=== PATIENT | male | born 1960 | race Caucasian/White ===

== ENCOUNTER 2019-07-15 07:00 | Day surgery (SDC) | payer BC, SELFPAY ==
[2019-07-14 09:16] VITALS: BMI 34.9
[2019-07-15] VITALS (8 sets, daily range): BP systolic 105–133; BP diastolic 68–90; PULSE 65–72; RESP 12–18; TEMP 36.6–37.1; O2SAT 91–99
--- NOTE | 2019-07-15 07:43 | ANES.PREANES ---
Pre-Anesthetic Assessment Pre-Anesthetic Assessment: Height/Weight: Height 1.91 m Weight 127.006 kg Temp Pulse Resp BP Pulse Ox 97.9 F 65 18 133/90 95 07/15/19 07:12 07/15/19 07:12 07/15/19 07:12 07/15/19 07:12 07/15/19 07:12 Proposed Procedure: Operation Date: 07/15/19 08:20 Proposed Procedures p Enucleation Left Eye(Left) - Jude Albright MD Last intake: Intake Last Liquid Date 07/14/19 Last Liquid Time 18:00 Last Solid Date 07/14/19 Last Solid Time 18:00 Social: Social History: No alcohol and No tobacco Exam: Pre-Anes Outpt Exam: alert, oriented x 3, clear to auscultation bilaterally and regular rate & rhythm Airway: Submandibular: WNL Cervical ROM: WNL MP: 2 Dentition: Other (teeth ok) History/ROS: No significant history except as noted Pulmonary: Pulmonary: None reported CV/HEM: CV/HEM: HTN Comments: H/O PE post surg : : None reported Hepatic: Hepatic: None reported GI: GI: GERD (controlled) Metabolic: Metabolic: Morbid obesity Musc/skel: Musc/skel: Lower Back Pain, OA/DJD and RA Neuropsych: Neuropsych: None reported Anesthetic Plan: ASA status: II Anesthesia: Anesthesia Evaluation, General and MAC Risk of > 500 ml blood loss (7ml/kg in children): No PFSH Anesthesia PFSH: Surgical History (Updated 07/15/19 @ 07:43 by Jarod Ann MD) 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
[2019-07-15] MEDS: sodium chloride 0.9% 1,000 ML 30 ML IV (08:11)
[2019-07-15] MEDS: ceFAZolin 1,000 mg SDV 1000 MG IRRIGATION (09:12)
[2019-07-15] MEDS: tobramycin 40 mg/mL SDV 2mL 80 MG INJECTION (09:25)
[2019-07-15] MEDS: neomycin-poly-dex Op oint 3.5 gm 1 APPLIC EYE-LEFT (09:29)
--- NOTE | 2019-07-15 10:01 | PM.HPUD ---
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
--- NOTE | 2019-07-15 10:02 | PM.OP ---
Operative Report Date of procedure: 07/15/19 Pre-op Diagnosis: Blind painful left eye Post-op diagnosis: same Post-op Findings: Scarred and shrunken left eye Procedure Done: Enucleation of the left eye with placement of a scleral coated shell and suture of the rectus muscles to the shell Implants: Ocular globe with scleral coating and a conformer were both placed on the left side Specimens removed/disposition: phthysical left eye Pathology: other Pathology: Enucleated left globe Surgeon: Jude Albright MD Harness Installer: Jesse Anesthesia: General Estimated blood loss (mL): 2 Complications: None Condition: stable Disposition: PACU Brief History: Patient suffered trauma to the left globe months ago 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 The eye has continued to shrink and become painful as well as causing significant ptosis and discharge from the orbital space. Procedure: The patient was brought to the operating table where blood pressure and cardiac monitoring devices were applied. Timeout was called and the proper patient and procedure were identified. General anesthesia was induced and vital signs were again confirmed to be stable. A Betadine wash was applied over the operative side of the face and sterile drapes were applied. A lid speculum was inserted and local infiltration of 1% lidocaine with epinephrine was given in a periocular as well as retrobulbar fashion. Bernardo scissor and 0.3 forceps was used to perform a peritomy and blunt dissection was continued in all 4 quadrants. Each of the rectus muscles was isolated with imbricating 6-0 Vicryl sutures on both sides of the muscle insertion and then disinserted from the globe. A 4-0 silk suture was placed through the limbus nasally and used to rotate the globe temporally allowing a an enucleation spoon to be placed medially and the enucleation scissors were used to cut the optic nerve as well as the 2 oblique muscles and additional connective tissue adherent to this globe. The orbit was then packed with a gauze pad while a 20 mm sphere was coated with preserved sclera which is been soaked in Ancef. The sclera was pulled tight closing all the surface area with 6-0 Mersilene sutures. The orbital packing was then removed and the sphere was placed in the orbit teasing the tendinous layer anteriorly with the forceps and then each of the rectus muscles was sutured to the scleral implant in their respective positions and crossed swords technique and cut short. The tenons layer was then closed with a running 6-0 Vicryl suture and the conjunctiva was closed with a running 6-0 chromic suture. The conjunctiva was well closed and there was adequate cul-de-sac remaining to place a large conformer coated and Maxitrol ointment between the lids. The lid speculum was removed and the Betadine swabs from the face after the drapes had been removed. The patient was awakened from anesthesia and transferred to the recovery room in stable condition. There were no complications.
[2019-07-15] MEDS: lidocaine 4% PF 5 mL INJ XX (10:19)
--- NOTE | 2019-07-19 09:38 | P.CONIM_ITS ---
Providers/Reason For Consult Consulting Physican/Specialty*: Ear nose and throat Reason for Consult*: intraoperative epistaxis Attending Physician: Jude Albright MD-Opth Primary Care Provider: Katie Fu History of Present Illness History of Present Illness Vicente Galarza is a 58 year old male with a past medical history significant for Qlalt-Wpyia-Ctqra who was having an enucleation after a traumatic left lobe injury. He developed profuse bleeding from both right and left nostrils and I was called to consult. Review of Systems General: Reports: ROS unobtainable due to medical condition Meds/Allergies Home Medications and Allergies Home Medications Medication Instructions Recorded Confirmed Type hydroxychloroquine 200 mg PO BID 07/14/19 07/15/19 History omeprazole 20 mg PO BID 07/14/19 07/15/19 History propranolol 40 mg PO BID 07/14/19 07/15/19 History Allergies Allergy/AdvReac Type Severity Reaction Status Date / Time meperidine [From Demerol] Allergy ADR-Nausea Verified 07/14/19 09:12 PFSH Acute PFSH: Statuses (acute, chronic, etc) shown below reflect problem list status as previously entered and may not be historically accurate Surgical History 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) H/O eye surgery (Acute) H/O: knee surgery (Acute) Previous back surgery (Acute) S/P appy (Acute) S/P left rotator cuff repair (Acute) S/P right rotator cuff repair (Acute) Vitals/I&O/Wt Last Vital Signs Temp 97.8 F 07/15/19 11:12 Pulse 70 07/15/19 11:39 Resp 18 07/15/19 11:39 BP 113/79 07/15/19 11:39 Pulse Ox 91 07/15/19 11:39 Physical Exam Narrative: EXAM NARRATIVE: Const: The patient is intubated GENERAL APPEARANCE: Intubated ORIENTATION/CONSCIOUSNESS: Intubated HENMT: Normocephalic, head/scalp atraumatic, head and scalp normal to inspection, FACE & SINUS: Normal facial exam, face symmetric, multiple telangiectasias present NOSE: External nose normal, nares normal, no nasal polyps, nasal packing present bilaterally EXTERNAL EAR: External ears normal EXTERNAL AUDITORY CANAL: EAC's normal TYMPANIC MEMBRANE: TM's normal bilaterally HEARING: Not assessed ORAL CAVITY: Oral and palatal mucosa normal, lip normal, tongue normal, salivary glands and ducts normal and moist mucous membranes stigmata of multiple telangiectasias present in the oral cavity none were bleeding THROAT: Oropharynx normal Eye: Bandage on left eye Neck/C-Spine: Full ROM, no lymphadenopathy in levels I-IV GENERAL: THYROID: Thyroid normal Lymph: LYMPHATIC: No lymphedema noted Chest: Inspection of chest normal Resp: Normal respiratory effort, no retractions, no use of accessory muscles and clear to auscultation bilaterally AUSCULTATION: Clear to auscultation bilaterally Cardio: No JVD, RRR Neuro: Oriented x3 and CN's II-XII intact bilaterally except as above SENSORIUM/ORIENTATION: Oriented to person, place and time. Psych: Mental status grossly normal, thought process normal, cooperative, speech normal and denies suicidal ideation APPEARANCE: Yes grossly normal and Yes well kempt ATTITUDE: Yes calm and yes engaged SPEECH: Yes normal speech T HOUGHT PROCESS: Normal thought process JUDGEMENT: Judgment good Skin: [No rashes noted except as above, no wounds, skin turgor normal, no jaundice, no petechiae and no mottling. 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 Coding Level of Care Code Acute Business Executive for [facility] Diagnoses Epistaxis R04.0 Fsdce-Rdqej-Ufybj disease I78.0
--- NOTE | 2019-07-19 09:44 | PM.OP ---
Operative Report Date of procedure: July 19, 2019 Pre-op Diagnosis: Epistaxis Post-op diagnosis: same Post-op Findings: Bleeding telangiectasia right lateral nose Procedure Done: Nasal cautery Pathology: none sent Surgeon: rFancis Spencer Complications: None Condition: stable Disposition: PACU Brief History: Mr. Galarza is a 58-year-old male who I was called to perform an emergency intraoperative consult secondary to profuse epistaxis. Procedure: I was called to the operating room. The patient experienced profuse epistaxis. Both sides were bleeding. This was controlled by the anesthesia provider. Under direct visualization the nasal packing was removed and the nose was assessed. A bleeding site was identified in the right anterior lateral nose juxtaposed to the tip of the inferior turbinate. This was a large telangiectasia. The area was cauterized and the patient was observed. No further bleeding occurred. The patient was then returned to the care of the anesthesiologist.
== END 2019-07-15 12:05 | disposition home or self-care (01) ==
LOC: OR 15:35
PROVIDERS: Otolaryngology; Family Provider Physician Assistant; PCP Physician Assistant; Visit Provider Ophthalmology
PROC: (CPT 65101; principal; 2019-07-15 08:20)
PROC: (CPT 30901; 2019-07-15 08:20)
DX: R04.0 Epistaxis (principal); I78.0 Hereditary hemorrhagic telangiectasia; H54.62 Unqualified visual loss, left eye, normal vision right eye; H11.242 Scarring of conjunctiva, left eye; I10 Essential (primary) hypertension; K21.9 Gastro-esophageal reflux disease without esophagitis; E66.01 Morbid (severe) obesity due to excess calories; Z68.35 Body mass index [BMI] 35.0-35.9, adult; M19.90 Unspecified osteoarthritis, unspecified site; M06.9 Rheumatoid arthritis, unspecified
CPT/HCPCS: 30901; 65101; 12345; 88307; C1713; J0330; J0690; J1100; J2001; J2405; J2704; J3010; J3260; J3490; J7030

== ENCOUNTER → 2019-07-27 13:04 | Outpatient (BNVA) | payer BC, SELFPAY | PROVIDERS: Family Provider Physician Assistant; PCP Physician Assistant; Referring Provider Internal Medicine Rheumatology; Visit Provider Internal Medicine Rheumatology | DX: M06.9 Rheumatoid arthritis, unspecified (principal); Z79.899 Other long term (current) drug therapy | CPT/HCPCS: 36415; 82565; 84460; 85651; 86140 ==

== ENCOUNTER → 2019-07-27 13:25 | Outpatient (BNVA) | payer BC, SELFPAY | PROVIDERS: Family Provider Physician Assistant; PCP Physician Assistant; Referring Provider Internal Medicine Rheumatology; Visit Provider Internal Medicine Rheumatology | DX: M06.9 Rheumatoid arthritis, unspecified (principal); I78.0 Hereditary hemorrhagic telangiectasia; R04.0 Epistaxis | CPT/HCPCS: 85025 ==

== ENCOUNTER → 2019-08-12 08:15 | Outpatient (BNVA) | payer BC, SELFPAY | PROVIDERS: Family Provider Physician Assistant; PCP Physician Assistant; Visit Provider Internal Medicine Rheumatology | DX: M06.00 Rheumatoid arthritis without rheumatoid factor, unspecified site (principal); S05.92XD Unspecified injury of left eye and orbit, subsequent encounter; Z79.899 Other long term (current) drug therapy; H54.62 Unqualified visual loss, left eye, normal vision right eye; W22.8XXD Striking against or struck by other objects, subsequent encounter | CPT/HCPCS: 99214 ==

== ENCOUNTER 2019-08-19 10:58 | Outpatient (CLI) | payer BC, SELFPAY ==
--- NOTE | 2019-08-19 | XR_ITS ---
WS: [id number] TOE RIGHT TECHNIQUE: 3 views of the right Third toe CLINICAL INFORMATION: TOE PAIN, 3RD TOE NAIL BLACK, STUBBED TOE COMPARISON: None. FINDINGS: Mild osteopenia. IP joint narrowing. No acute fractures. No evidence of osteomyelitis XR/XR toe RT min 2V [id number] IMPRESSION: No acute findings
== END 2019-08-19 10:59 | disposition home or self-care (01) ==
LOC: RADOUTREAD 13:38
PROVIDERS: Family Provider Physician Assistant; PCP Physician Assistant; Visit Provider Physician Assistant
DX: Z01.89 Encounter for other specified special examinations (principal)

== ENCOUNTER → 2019-11-09 09:38 | Outpatient (BNVA) | payer BC, SELFPAY | PROVIDERS: Family Provider Physician Assistant; PCP Physician Assistant; Visit Provider Internal Medicine Rheumatology | DX: Z79.899 Other long term (current) drug therapy (principal) | CPT/HCPCS: 36415; 80076; 82565; 85025; 85651; 86140 ==

== ENCOUNTER → 2019-11-11 11:09 | Outpatient (BNVA) | payer BC, SELFPAY | PROVIDERS: Family Provider Physician Assistant; PCP Physician Assistant; Visit Provider Internal Medicine Rheumatology | DX: M06.00 Rheumatoid arthritis without rheumatoid factor, unspecified site (principal); Z79.899 Other long term (current) drug therapy; H54.62 Unqualified visual loss, left eye, normal vision right eye; S05.92XD Unspecified injury of left eye and orbit, subsequent encounter; D72.819 Decreased white blood cell count, unspecified; X58.XXXD Exposure to other specified factors, subsequent encounter | CPT/HCPCS: 99214 ==

== ENCOUNTER → 2020-03-23 10:18 | Outpatient (BNVA) | payer BC, SELFPAY | PROVIDERS: Family Provider Physician Assistant; PCP Physician Assistant; Visit Provider Internal Medicine Rheumatology | DX: Z79.899 Other long term (current) drug therapy (principal) | CPT/HCPCS: 36415; 80076; 82565; 85025; 85651; 86140 ==

== ENCOUNTER → 2020-03-30 14:50 | Outpatient (BNVA) | payer BC, SELFPAY | PROVIDERS: Family Provider Physician Assistant; PCP Physician Assistant; Visit Provider Internal Medicine Rheumatology | DX: M06.00 Rheumatoid arthritis without rheumatoid factor, unspecified site (principal); Z79.899 Other long term (current) drug therapy; R07.9 Chest pain, unspecified; S05.92XD Unspecified injury of left eye and orbit, subsequent encounter; X58.XXXD Exposure to other specified factors, subsequent encounter | CPT/HCPCS: 99214 ==

== ENCOUNTER 2020-03-30 15:42 | Emergency (ER) | payer BC, SELFPAY ==
[2020-03-30 15:51] VITALS: BP 137/93; PULSE 76; RESP 16; TEMP 36.8; O2SAT 98; BMI 34.9
--- NOTE | 2020-03-30 16:35 | ECG_ITS ---
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 Measurements Intervals [place] Rate: 80 P: 18 [place]: 181 QRS: 19 QRSD: 102 T: 44 QT: 364 QTc: 421 Interpretive Statements SINUS RHYTHM WITH OCCASIONAL VENTRICULAR PREMATURE COMPLEXES WITH OCCASIONAL SUPRAVENTRICULAR PREMATURE COMPLEXES Compared to ECG 09/04/2017 23:54:07 Ventricular premature complex(es) now present Electronically Signed On 03-30-2020 18:33:35 CDT by Jayson Hansen M.D. [email or web address]
--- NOTE | 2020-03-30 16:44 | XR_ITS ---
WS: [id number] Portable AP upright chest, 03/30/2020 Clinical Data: Chest pain Comparison: PA and lateral chest, 04/23/2018. Findings: No nodules, masses or effusions are seen. The heart is slightly enlarged. The pulmonary vas cularity is not increased. No pneumonia or pneumothorax is seen. The thoracic aorta shows tortuosity. There are monitor leads on the chest wall. XR/XR chest 1V portable [id number] Impression: Cardiomegaly and atherosclerosis.
--- NOTE | 2020-03-30 16:49 | ED_ITS ---
HPI - Chest Pain General: Chief Complaint: Chest Pain Stated Complaint: cp Time Seen by Provider: 03/30/20 16:34 Source: patient Mode of arrival: ambulatory Limitations: no limitations History of Present Illness: HPI narrative: Vicente is a very nice 59-year-old male who comes in complaining of chest pain. He states for the past 2 weeks he has had intermittent chest pain described as a pressure or tightness in his chest. He has radiation to his left jaw, and neck and left arm. He has associated shortness of breath with this. Symptoms are made worse with exertion and brought on by exertion. Rest and time help resolve his symptoms. Because of the increasing frequency and severity of his symptoms he decided to come in today for evaluation. Patient denies any diaphoresis or nausea or vomiting. Associated symptoms: Reports dyspnea; Deny abdominal pain, diaphoresis, fever(s), nausea, palpitations, syncope or vomiting Review of Systems Const: Denies: fever(s), chills, body aches, fatigue, malaise or diaphoresis Eyes: Denies: change in vision, blurry vision, photophobia, eye discomfort, eye discharge, eye redness or yellow eyes ENMT: Denies: throat pain, odynophagia, hoarseness, swelling of lips/tongue, ear or mastoid pain, ear discharge, change in hearing or nasal discharge Card: Reports: chest pain and dyspnea on exertion; Denies: palpitations, irregular heart rhythm, edema, lightheadedness, syncope, pre-syncope or orthopnea Resp: Reports: dyspnea; Denies: productive cough, non-productive cough, wheezing, hemoptysis or chest congestion GI: Denies: abdominal pain, nausea, vomiting, hematemesis, coffee ground emesis, heartburn, diarrhea, constipation, GI cramping, hematochezia or melena : Denies: flank pain, dysuria, urinary frequency, urinary urgency or hematuria Musc: Denies: neck pain, back pain, extremity pain, extremity swelling, joint pain, joint swelling, joint redness, joint warmth or joint stiffness Skin/Breast: Denies: rash, pruritus, erythema, skin pain or skin tenderness Neuro: Denies: headache(s), numbness in extremities, weakness in extremities, sensory changes, lack of coordination, difficulty walking, dizziness, vertigo, confusion, Slurred speech present or seizure-like activity Migue/Lymph: Denies: easy bruising, easy bleeding, petechiae, purpura or enlarged lymph nodes All/Imm: Denies: urticaria, throat swelling, tongue swelling, facial swelling or acute wheezing PFSH ED PFSH: Medical History Chest pain High risk medication use Immunization counseling Tlttt-Nozal-Xwxui disease Osteoarthritis 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 Surgical History Cornea replaced by transplant H/O eye surgery H/O: knee surgery Previous back surgery S/P appy S/P left rotator cuff repair S/P right rotator cuff repair Family History Other Cancer Denies family history of Rheumatoid arthritis Diabetes Lupus CAD (coronary artery disease) Hypertension Social History Smoking and tobacco status: never smoked Alcohol intake: never History of recent travel: No Physical Exam Const: COMMON NORMALS: no acute distress, patient oriented x3, no limitations and alert GENERAL APPEARANCE: cooperative HENMT: COMMON NORMALS: normocephalic, atraumatic, external ears normal, EAC's normal and Normal external nose present HEAD & SCALP: normal to inspection, normocephalic and atraumatic FACE & SINUS: normal facial exam and face symmetric NOSE: Normal external nose present and Normal nares present EXTERNAL EAR: Yes external ears normal EXTERNAL AUDITORY CANAL: EAC's normal MOUTH: Normal oral and palatal mucosa present, lip normal and tongue normal Eye: COMMON NORMALS: Equal, round and reactive pupils present and conjunctivae normal GENERAL EYE: appearance normal, both eyes and all related structures ALIGNMENT: Yes alignment normal PERIORBITAL: periorbital findings normal EYELID: eyelids normal CONJUNCTIVA: Yes conjunctivae normal SCLERA: sclerae normal PUPIL: Yes Equal, round and reactive pupils present Neck/C-Spine: COMMON NORMALS: full ROM, no lymphadenopathy, supple, no meningeal signs and no JVD GENERAL: Yes normal visual inspection and Yes trachea midline Chest: COMMONS NORMALS: normal inspection of the chest and normal palpation of entire chest wall Resp: COMMON NORMALS: normal respiratory effort, No retractions, No use of accessory muscles and clear to auscultation bilaterally EFFORT & INSPECTION: Yes able to speak in complete sentences and Yes symmetric chest movement AUSCULTATION: clear to auscultation bilaterally, no crackles, no rales, no rhonchi and no wheezes Cardio: COMMON NORMALS: no JVD, regular rate, regular rhythm, S1 normal heart sound present and S2 normal heart sound present RATE: regular rate RHYTHM: regular rhythm HEART SOUNDS: S1 normal heart sound present, S2 normal heart sound present, no click, no gallops, no murmurs and no rubs GI: COMMON NORMALS: Soft to palpation and No hepatosplenomegaly present PALPATION: Yes Soft to palpation, No Tenderness to palpation present (GI), No Guarding due to palpation present (GI), No Rigid due to palpation, Yes No hepatosplenomegaly present, No Hernia present, No Palpable mass present and No Pulsatile mass present : COMMON NORMALS: Yes no CVA tenderness BLADDER/KIDNEY EXAM: Yes no CVA tenderness Back/Pelvis: COMMON NORMALS: no CVA tenderness, thoracic and lumbar spine normal to inspection, no thoracic nor lumbar tenderness and thoraco-lumbar ROM normal Extremity: COMMON NORMALS: normal to inspection, full ROM, capillary refill normal, no joint enlargement, no clubbing, cyanosis or edema and no calf tenderness Neuro: COMMON NORMALS: patient oriented x3, CN's II-XII intact bilaterally, mo ves all extremities, no focal motor deficits and no sensory deficits noted SENSORIUM/ORIENTATION: Yes alert MENINGEAL SIGNS: Yes no meningeal signs SPEECH: speech normal Psych: COMMON NORMALS: mental status grossly normal, Normal thought process present, cooperative, normal affect, speech normal and activity/motor behavior normal SPEECH: Yes normal speech THOUGHT PROCESS: Normal thought process present Skin: COMMON NORMALS: no rashes or lesions noted, turgor normal, no jaundice, no petechiae and no mottling GENERAL SKIN EXAM: no rashes or lesions noted and turgor normal Course Vital Signs: Vital signs: Vital Signs Temperature 98.2 F 03/30/20 15:51 Pulse Rate 65 03/30/20 18:31 Respiratory Rate 20 H 03/30/20 18:31 Blood Pressure 140/93 03/30/20 18:31 Pulse Oximetry 95 03/30/20 18:31 MDM - Chest Pain MDM Narrative: Medical decision making narrative: 1945 -patient is declining any further evaluation and care. Earlier he had agreed to be admitted but that he has changed his mind. I have discussed with him and his at length the possibility of this being early signs of a heart attack but despite this warning and long discussion the patient refuses to stay. Patient clearly has the capacity to make this decision. He has asked multiple questions and talked with his and reasoned through all my information but still ultimately decides to leave. He does understand he is free to return should his symptoms return or his symptoms change or worsen but despite these warnings the patient still wants to leave. He does agree to follow-up with his regular doctor soon as he can. The patient was warned but he was welcome to return. Lab Data: Attestation: I reviewed the patient's lab results. Labs: Lab Results 03/30/20 03/30/20 03/30/20 Range/Units 17:18 17:18 17:18 WBC 5.4 (4.0-10.0) 10^3/ uL RBC 4.27 (4.1-5.3) 10^6/u L Hgb 12.4 (11.7-16.6) g/dL Hct 40.1 L (42.0-52.0) % MCV 93.9 (80-94) fL MCH 29.0 (28.0-34.0) pg MCHC 30.9 (30.0-36.0) g/dL RDW 13.9 (12.1-15.1) % Plt Count 247 (130-400) 10^3/c mm MPV 9.2 (7.4-10.4) fL Neut % (Auto) 65.3 % Lymph % (Auto) 25.3 % Mcminn % (Auto) 7.8 % Eos % (Auto) 0.7 % Baso % (Auto) 0.7 % Neut # (Auto) 3.51 (1.8-7.7) 10^3/u L Lymph # (Auto) 1.4 (0.8-4.8) 10^3/u L Mcminn # (Auto) 0.4 (0.2-0.9) 10^3/u L Eos # (Auto) 0.0 (0.0-0.8) 10^3/u L Baso # (Auto) 0.0 (0.0-0.1) 10^3/u L Nucleated RBC % (a uto) 0 % Nucleated RBCs # 0.0 /100WBC PT 13.80 (12.1-14.9) SECO NDS INR 1.03 (0.8-1.2) D-Dimer <= 0.27 (0-0.59) ug/mIFE U Sodium 139 (136-145) mmol/L Potassium 4.1 (3.5-5.1) mmol/L Chloride 104 (98-107) mmol/L Carbon Dioxide 25 (22-29) mmol/L Anion Gap 14.1 (5-19) BUN 17 (8-23) mg/dL Creatinine 0.9 (0.7-1.2) mg/dL GFR Calculation 86.1 L (90-130) mL/min Glucose 94 (65-115) mg/dL Calculated Osmolal ity 289 (285-295) mOsm/k g Calcium 9.6 (8.5-10.5) mg/dL Total Bilirubin 0.2 (0.15-1.2) mg/dL AST 24 (0-40) U/L ALT 22 (0-41) U/L Alkaline Phosphata se 75 (40-130) IU/L Troponin T Baselin e (0-15) ng/L Troponin T 120 Min augustine (0-15) ng/L Delta Troponin T (0-10) ABS# C-React Prot High Sens 0.180 (0.0-0.3) mg/dL Total Protein 7.2 (6.6-8.7) g/dL Albumin 4.1 (3.5-5.2) g/dL Globulin 3.1 (1.3-4.6) g/dL Lipase 32 (13-60) U/L 03/30/20 03/30/20 Range/Units 17:18 19:12 WBC (4.0-10.0) 10^3/ uL RBC (4.1-5.3) 10^6/u L Hgb (11.7-16.6) g/dL Hct (42.0-52.0) % MCV (80-94) fL MCH (28.0-34.0) pg MCHC (30.0-36.0) g/dL RDW (12.1-15.1) % Plt Count (130-400) 10^3/c mm MPV (7.4-10.4) fL Neut % (Auto) % Lymph % (Auto) % Mcminn % (Auto) % Eos % (Auto) % Baso % (Auto) % Neut # (Auto) (1.8-7.7) 10^3/u L Lymph # (Auto) (0.8-4.8) 10^3/u L Mcminn # (Auto) (0.2-0.9) 10^3/u L Eos # (Auto) (0.0-0.8) 10^3/u L Baso # (Auto) (0.0-0.1) 10^3/u L Nucleated RBC % (a uto) % Nucleated RBCs # /100WBC PT (12.1-14.9) SECO NDS INR (0.8-1.2) D-Dimer (0-0.59) ug/mIFE U Sodium (136-145) mmol/L Potassium (3.5-5.1) mmol/L Chloride (98-107) mmol/L Carbon Dioxide (22-29) mmol/L Anion Gap (5-19) BUN (8-23) mg/dL Creatinine (0.7-1.2) mg/dL GFR Calculation (90-130) mL/min Glucose (65-115) mg/dL Calculated Osmolal ity (285-295) mOsm/k g Calcium (8.5-10.5) mg/dL Total Bilirubin (0.15-1.2) mg/dL AST (0-40) U/L ALT (0-41) U/L Alkaline Phosphata se (40-130) IU/L Troponin T Baselin e 6 (0-15) ng/L Troponin T 120 Min augustine 7.10 (0-15) ng/L Delta Troponin T 1.10 (0-10) ABS# C-React Prot High Sens (0.0-0.3) mg/dL Total Protein (6.6-8.7) g/dL Albumin (3.5-5.2) g/dL Globulin (1.3-4.6) g/dL Lipase (13-60) U/L EKG Data^: EKG 1: Attestation: I personally reviewed and interpreted this EKG as follows: EKG interpretation date: 03/30/20 EKG interpretation time: 15:48 Interpretation: Normal sinus rhythm at 80 beats a minute, PVCs noted, normal axis, no blocks, normal intervals, no acute ST-T wave changes. EKG 2: Attestation: I personally reviewed and interpreted this EKG as follows: EKG interpretation date: 03/30/20 EKG interpretation time: 18:38 Interpretation: Normal sinus rhythm at 60 beats minute, no blocks, normal intervals, no acute ST or T wave changes Discharge Plan Discharge Patient Disposition: Home Clinical Impression: Chest pain Qualifiers: Chest pain type: unspecified Qualified Code(s): R07.9 - Chest pain, unspecified Condition: Stable Prescriptions: New aspirin 325 mg tablet 325 mg PO DAILY Qty: 30 RF: 0 No Action prednisone 5 mg tablet 10 mg PO .as directed PRN (Reason: Rheumatoid Arthritis ) 30 Days Qty: 30 RF: 1 multivitamin Tablet 1 tab PO DAILY RF: 0 Vitamin B-12 1,000 mcg Tablet 1,000 mcg PO DAILY RF: 0 iron 325 mg (65 mg iron) Tablet 325 mg PO DAILY RF: 0 magnesium 250 mg Tablet 250 mg PO DAILY RF: 0 Vitamin D3 25 mcg (1,000 unit) Capsule 25 mcg PO DAILY RF: 0 Actemra ACTPen 162 mg/0.9 mL pen injector 162 mg SUBCUT Q7D RF: 0 Discharge Orders: Discharge Order (Routine); Ordered 03/30/20 Ordered By: Madhuri Knox Referrals: Katie Fu PA [Primary Care Provider] - 1-3 days Discharge Diet: Low Cholesterol Discharge Activity: Limit activity as instructed Patient Instructions: Chest Pain (ED) Activity Restrictions/Additional Instructions: You're leaving AGAINST MEDICAL ADVICE and are at risk for or severe permanent disability by doing so. You are more than welcome to return at any time for recheck and for further evaluation and care suture change you change your mind. You are free to return should you change your mind. 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
[2020-03-30 17:32] LABS: Basophils % 0.7 %; Eosinophils % 0.7 %; Hematocrit 40.1 % (42.0-52.0); Hemoglobin 12.4 g/dL (11.7-16.6); Lymphocytes # 1.4 10^3/uL (0.8-4.8); Lymphocytes % 25.3 %; Mean Corpuscular HGB Conc 30.9 g/dL (30.0-36.0); Mean Corpuscular Volume 93.9 fL (80-94); Mean Platelet Volume 9.2 fL (7.4-10.4); Monocytes # 0.4 10^3/uL (0.2-0.9); Monocytes % 7.8 %; Neutrophils # 3.51 10^3/uL (1.8-7.7); Neutrophils % 65.3 %; Nucleated Red Blood Cells % 0 %; Platelet Count 247 10^3/cmm (130-400); Red Blood Count 4.27 10^6/uL (4.1-5.3); Red Cell Distribution Width 13.9 % (12.1-15.1); White Blood Count 5.4 10^3/uL (4.0-10.0)
[2020-03-30 17:44] LABS: INR 1.03 (0.8-1.2)
[2020-03-30 17:47] LABS: D Dimer <= 0.27 ug/mIFEU (0-0.59)
[2020-03-30 17:49] LABS: Alanine Aminotransferase 22 U/L (0-41); Albumin Level 4.1 g/dL (3.5-5.2); Alkaline Phosphatase 75 IU/L (40-130); Anion Gap 14.1 (5-19); Aspartate Amino Transferase 24 U/L (0-40); Blood Urea Nitrogen 17 mg/dL (8-23); Calcium 9.6 mg/dL (8.5-10.5); Carbon Dioxide 25 mmol/L (22-29); Chloride 104 mmol/L (98-107); Globulin 3.1 g/dL (1.3-4.6); Glomerular Filtration Rate 86.1 mL/min (90-130); Glucose 94 mg/dL (65-115); Lipase 32 U/L (13-60); Osmolality Calculated 289 mOsm/kg (285-295); Potassium 4.1 mmol/L (3.5-5.1); Sodium 139 mmol/L (136-145); Total Bilirubin 0.2 mg/dL (0.15-1.2); Total Protein 7.2 g/dL (6.6-8.7)
[2020-03-30 17:50] LABS: Troponin(5th) Baseline 6 ng/L (0-15)
[2020-03-30 18:31] VITALS: BP 140/93; PULSE 65; RESP 20; O2SAT 95
--- NOTE | 2020-03-30 19:27 | PC.NURSE ---
report received from TAMMY Perez and care transferred to TAMMY Mtz
[2020-03-30 20:03] VITALS: BP 135/104; PULSE 79; RESP 16; O2SAT 95
--- NOTE | 2020-03-30 21:19 | PC.SOCIAL ---
Patient seen in ED for initial assessment. He lives with his . He is semi-retired from work, usually works 12 hours a week. Just enough to keep his insurance. He has no prior DME or services. Still independent with ADL's. He uses [facility] and see's Katie Fu as outpatient provider.
== END 2020-03-30 20:01 | disposition home or self-care (01) ==
PROVIDERS: Nurse Practitioner Family; Emergency Provider Emergency Medicine; PCP Physician Assistant
DX: R07.9 Chest pain, unspecified (principal)
CPT/HCPCS: 12345; 36415; 71045; 80053; 83690; 84484; 85025; 85378; 85610; 86141; 93005; 99283; 99284

== ENCOUNTER 2020-04-18 08:46 | Outpatient (CLI) | payer BC, SELFPAY ==
[2020-04-18 08:53] VITALS: BMI 25.0
--- NOTE | 2020-04-18 08:57 | ECG_ITS ---
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 Interpretive Statements NAME OF STUDY: EXERCISE SESTAMIBI STRESS TEST INDICATION: [Acute Angina] Exercise data: The patient was exercised by Xavier protocol. Baseline heart rate was 76 beats per minute. Baseline blood pressure was 127/93 mmHg. Maximum predicted heart rate was 160 bpm. Patient reached maximum heart rate of 144 bpm which was 90 % of maximum predicted heart rate and was the target heart rate for patient. Patient exercised for total of 6 minutes and 47 seconds and achieved 10.2 METS with max VO2 of 35.7. The reason for ending the test was completion of protocol and target heart rate achieved. The patient did not complain of any symptoms. Electrocardiogram: Baseline: Showed normal sinus rhythm with no significant ST-T wave changes at baseline. Exercise: At the peak exercise level no significant ST-T wave changes were noted that were suggestive of ischemia. However frequent PVCs were noted. Recovery: During the recovery, Heart rate dropped appropriately. No significant ST-T wave changes in recovery suggestive of ischemia noted. Again frequent PVCs were noted in recovery as well. Conclusion: 1. Exercise capacity was excellent. 2. Heart rate response was appropriate. 3. Blood pressure response was appropriate 4. Symptoms not suggestive of ischemia. 5. Electrocardiogram portion of stress test was not suggestive of ischemia based on ST-T wave changes however there were significant number of PVCs.. 6. Nuclear scan will be documented separately. Electronically Signed On 04-24-2020 10:39:57 [employer]ORPED[employer] SPECIALIST by Jayson Hansen M.D. [email or web address] [email or web address] va [id number]
--- NOTE | 2020-04-18 08:57 | NMCV_ITS ---
NM rustam perf SPECT r/s* [id number] Vicente Galarza Age: 59 Gender: M : 1960 Exam Date: 04/18/2020 09:59 Ordering Phys: Katie Fu Technologist: RAFAEL Sue Exam Location: [facility] Indications: ACUTE ANGINA STRESS TEST Please see separate stress test report in [facility] for full findings IMAGE PROTOCOL Rest/Stress 1 Exercise Day Radiopharmaceutical Dose (mCi) Administration Site Administered by Rest: Tc-99m 10.9 IV RAFAEL Snyder Sestamibi Stress:Tc-99m 32.1 IV RAFAEL Sue Sestamialexx Rest: 18-Apr-2020 60 Discovery 630 Stress: 18-Apr-2020 30 Discovery 630 Radiopharmaceutical was injected at 90 % maximum heart rate. Images obtained in supine and prone position. SPECT RESULTS Technical Quality: Good Raw Data Analysis: Normal Image Corrections: No attenuation or motion correction applied Summed Stress Score: 0 Summed Rest Score: 0 Summed Difference Score: 0 PERFUSION FINDINGS SPECT images demonstrate homogeneous tracer distribution throughout the myocardium. FUNCTIONAL RESULTS (calculated via Gated SPECT) Stress Image LV EF (%): 71 Stress EDV (mL):129 TID: 0.77 Stress ESV (mL):38 FUNCTIONAL FINDINGS: There is normal left ventricular systolic function. IMPRESSIONS 1. Normal myocardial perfusion imaging with no evidence of ischemia 2. Normal LV systolic function with EF of 71% Jayson Hansen MD (Electronically Signed) Final Date: 18 April 2020 14:29 S
--- NOTE | 2020-04-18 11:09 | SUR.PREOP ---
Patient reports no pain or discomfort prior to the start of the procedure.
[2020-04-18 11:36] VITALS: BP 139/77; PULSE 83
== END 2020-04-18 08:47 | disposition home or self-care (01) ==
LOC: RAD 08:46 → CDL 08:52
PROVIDERS: PCP Physician Assistant; Visit Provider Physician Assistant
DX: I20.9 Angina pectoris, unspecified (principal)
CPT/HCPCS: 78452; 93017; A9500

== ENCOUNTER → 2020-07-12 13:00 | Outpatient (BNVA) | payer BC, OTHER, SELFPAY | PROVIDERS: PCP Physician Assistant; Visit Provider Internal Medicine Rheumatology | DX: M06.00 Rheumatoid arthritis without rheumatoid factor, unspecified site (principal); Z79.899 Other long term (current) drug therapy; R07.89 Other chest pain; S05.92XD Unspecified injury of left eye and orbit, subsequent encounter; Y93.9 Activity, unspecified | CPT/HCPCS: 36415; 80076; 82565; 85025; 85651; 86140; 99214 ==

== ENCOUNTER → 2020-08-14 11:05 | Outpatient (BNVA) | payer BC, OTHER, SELFPAY | PROVIDERS: PCP Physician Assistant; Visit Provider Specialist | DX: G62.89 Other specified polyneuropathies (principal) | CPT/HCPCS: 95886; 95909; 99202 ==

== ENCOUNTER → 2021-01-02 08:31 | Outpatient (BNVA) | payer OTHER, SELFPAY | PROVIDERS: PCP Physician Assistant; Visit Provider Specialist | DX: G62.9 Polyneuropathy, unspecified (principal); R20.0 Anesthesia of skin; R20.2 Paresthesia of skin | CPT/HCPCS: 99214; 99215 ==

== ENCOUNTER 2021-01-02 09:49 | Outpatient (CLI) | payer OTHER, SELFPAY ==
[2021-01-02 11:11] LABS: C Reactive Protein 0.3 mg/L (0.0-4.9); Vitamin B12 901 pg/mL (232-1245)
[2021-01-02 11:31] LABS: Erythrocyte Sedimentation Rate 9 mm/hr (0-10)
[2021-01-02 11:52] LABS: Folate Level 13.2 ng/mL (4.5-32.2)
[2021-01-06 05:07] LABS: Methylmalonic Acid 121 nmol/L (87-318)
== END 2021-01-02 09:50 | disposition home or self-care (01) ==
PROVIDERS: PCP Physician Assistant; Visit Provider Specialist
DX: G62.9 Polyneuropathy, unspecified (principal); R20.0 Anesthesia of skin; R20.2 Paresthesia of skin
CPT/HCPCS: 36415; 82607; 82746; 83921; 84260; 84443; 85651; 86140; 86431

== ENCOUNTER 2021-01-19 10:32 | Outpatient (CLI) | payer OTHER, SELFPAY ==
--- NOTE | 2021-01-19 11:00 | MR_ITS ---
WS: [id number] MRI LUMBAR SPINE NONCONTRAST HISTORY: G62.9 - Polyneuropathy, unspecified COMPARISON: 02/15/2011 TECHNIQUE: Sagittal and axial multisequence imaging is submitted. Quality of this examination is suboptimal due to body habitus. Posterior alignment is normal. Posterior fusion hardware at L4-5. Interbody spacer at L4-5. No marrow edema is identified. No fracture. Disc spaces demonstrate mild desiccation throughout. Conus terminates normally at L1-2 disc level. L1-L2: Mild facet arthritis. No stenosis. L2-L3: Mild asymmetric disc bulging with a focal central disc protrusion. Moderate ligamentum flavum hypertrophy and facet arthritis. Mild central and bilateral subarticular recess stenosis. L3-L4: Diffuse annular disc bulging with ligamentum flavum hypertrophy and facet arthritis. No signif icant stenosis. L4-L5: Diffuse annular disc bulging and osteophytic ridging. RIGHT hemilaminectomy defect. Nerve root s are slightly clumped within the periphery of the thecal sac. Facet joint arthritis encroaching into the foramina. Moderate RIGHT and mild LEFT foraminal stenosis. L5-S1: Mild annular disc bulging with a RIGHT paracentral disc protrusion and/or osteophyte which is very slightly contacting but not displacing the RIGHT S1 nerve root. Moderate bilateral facet joint a rthritis encroaching into the subarticular recesses. Mild to moderate bilateral foraminal stenosis. M ild progression of stenosis since 2010. 2 cm RIGHT renal cyst. MR/MR lumbar spine wo con* [id number] IMPRESSION: 1. MRI quality is limited by body habitus. 2. Prior posterior lumbar fusion at L4-5 with interbody spacer. No complicatio n evident. 3. RIGHT paracentral disc protrusion and/or osteophyte encroachment upon the R IGHT S1 nerve root. 4. Moderate RIGHT and mild LEFT foraminal stenosis L4-5. 5. Multilevel mild to moderate facet joint arthritis throughout the lumbar spi ne. 6. Mild central and bilateral subarticular recess stenosis at L2-3.
== END 2021-01-19 10:33 | disposition home or self-care (01) ==
LOC: RADSHAW 10:34
PROVIDERS: PCP Physician Assistant; Visit Provider Specialist
DX: G62.9 Polyneuropathy, unspecified (principal); M48.061 Spinal stenosis, lumbar region without neurogenic claudication; M47.816 Spondylosis without myelopathy or radiculopathy, lumbar region; M51.26 Other intervertebral disc displacement, lumbar region; M25.78 Osteophyte, vertebrae; M43.26 Fusion of spine, lumbar region
CPT/HCPCS: 72148

== ENCOUNTER → 2021-01-22 10:49 | Outpatient (BNVA) | payer OTHER, SELFPAY | PROVIDERS: PCP Physician Assistant; Visit Provider Specialist | DX: M51.37 Other intervertebral disc degeneration, lumbosacral region (principal); M54.17 Radiculopathy, lumbosacral region; G62.9 Polyneuropathy, unspecified | CPT/HCPCS: 99214 ==

== ENCOUNTER → 2021-02-15 12:57 | Outpatient (BNVA) | payer OTHER, SELFPAY | PROVIDERS: PCP Physician Assistant; Visit Provider Internal Medicine Rheumatology | DX: Z71.89 Other specified counseling (principal); Z79.899 Other long term (current) drug therapy; M06.00 Rheumatoid arthritis without rheumatoid factor, unspecified site | CPT/HCPCS: 36415; 80076; 82565; 85025; 86140 ==

== ENCOUNTER → 2021-02-26 13:51 | Outpatient (BNVA) | payer OTHER, SELFPAY | PROVIDERS: PCP Physician Assistant; Visit Provider Internal Medicine Rheumatology | DX: M06.00 Rheumatoid arthritis without rheumatoid factor, unspecified site (principal); Z79.899 Other long term (current) drug therapy; S05.92XD Unspecified injury of left eye and orbit, subsequent encounter; Y93.9 Activity, unspecified; D72.819 Decreased white blood cell count, unspecified; Z71.89 Other specified counseling | CPT/HCPCS: 99214 ==

== ENCOUNTER → 2021-03-01 10:42 | Outpatient (BNVA) | payer OTHER, SELFPAY | PROVIDERS: PCP Physician Assistant; Referring Provider Specialist; Visit Provider Orthopaedic Surgery | DX: M54.17 Radiculopathy, lumbosacral region (principal) | CPT/HCPCS: 72110 ==

== ENCOUNTER → 2021-03-06 09:10 | Outpatient (BNVA) | payer OTHER, SELFPAY | PROVIDERS: PCP Physician Assistant; Referring Provider Orthopaedic Surgery; Visit Provider Anesthesiology Pain Medicine | DX: M79.604 Pain in right leg (principal); M54.16 Radiculopathy, lumbar region; M51.36 Other intervertebral disc degeneration, lumbar region; M47.816 Spondylosis without myelopathy or radiculopathy, lumbar region; M54.17 Radiculopathy, lumbosacral region; M51.37 Other intervertebral disc degeneration, lumbosacral region; M43.10 Spondylolisthesis, site unspecified; Z98.1 Arthrodesis status | CPT/HCPCS: 99205 ==

== ENCOUNTER → 2021-03-14 14:46 | Outpatient (BNVA) | payer OTHER, SELFPAY | PROVIDERS: PCP Physician Assistant; Visit Provider Anesthesiology Pain Medicine | DX: M54.16 Radiculopathy, lumbar region (principal); M47.816 Spondylosis without myelopathy or radiculopathy, lumbar region | CPT/HCPCS: 64483; 64484; J1100; J3490 ==

== ENCOUNTER → 2021-03-28 14:15 | Outpatient (BNVA) | payer OTHER, SELFPAY | PROVIDERS: PCP Physician Assistant; Visit Provider Anesthesiology Pain Medicine | DX: M54.16 Radiculopathy, lumbar region (principal) | CPT/HCPCS: 64483; 64484; J1100; J3490 ==

== ENCOUNTER → 2021-04-03 08:10 | Outpatient (BNVA) | payer OTHER, SELFPAY | PROVIDERS: PCP Physician Assistant; Visit Provider Specialist | DX: G62.9 Polyneuropathy, unspecified (principal); M54.17 Radiculopathy, lumbosacral region | CPT/HCPCS: 99212; 99214 ==

== ENCOUNTER 2021-11-06 09:20 | Outpatient (RCR) | payer OTHER, SELFPAY | END 2021-11-13 23:59 | disposition home or self-care (01) | LOC: SPT 09:20 | PROVIDERS: PCP Physician Assistant; Referring Provider Orthopaedic Surgery; Visit Provider Orthopaedic Surgery | DX: M48.061 Spinal stenosis, lumbar region without neurogenic claudication (principal) | CPT/HCPCS: 97110; 97161 ==

== ENCOUNTER 2022-02-14 10:52 | Outpatient (CLI) | payer OTHER, SELFPAY ==
--- NOTE | 2022-02-14 12:15 | USCV_ITS ---
Vicente Galarza Age: 61 Gender: M : 1960 Exam Date: 02/14/2022 11:15 Ordering Phys: Farrukh Wayne MD Technologist: BRYANT Exam Location: [facility] [place] Indication: RLE PAIN AND SWELLING HISTORY: Lower extremity swelling. Lower extremity pain. PROCEDURES: Venous duplex imaging was performed in only the right lower extremity. The following venous structures were evaluated: common femoral vein, profunda vein, proximal portion of the greater saphenous vein, superficial femoral vein, and the popliteal vein. In addition, the posterior tibial and peroneal trunk were evaluated. FINDINGS: Occlusive DVT seen in Right PTV. All other veins appear patent. CONCLUSIONS Acute DVT right posterior tibial vein. Dr. Sarita Bruce DO (Electronically Signed) Final Date: 14 February 2022 11:51 S
== END 2022-02-14 10:53 | disposition home or self-care (01) ==
PROVIDERS: PCP Physician Assistant; Visit Provider Internal Medicine Rheumatology
DX: M06.00 Rheumatoid arthritis without rheumatoid factor, unspecified site (principal); Z79.899 Other long term (current) drug therapy; I82.409 Acute embolism and thrombosis of unspecified deep veins of unspecified lower extremity; I82.441 Acute embolism and thrombosis of right tibial vein
CPT/HCPCS: 93971

== ENCOUNTER 2022-02-14 15:45 | Outpatient (CLI) | payer OTHER, SELFPAY ==
--- NOTE | 2022-02-14 15:52 | CTR_ITS ---
PROCEDURE INFORMATION: Exam: CTA Chest With Contrast Exam date and time: 02/14/2022 3:58 PM Age: 61 years old Clinical indication: Patient HX: Lower extremity dvt seen today on US. Chest pains and shortness of breath x 3 wks TECHNIQUE: Imaging protocol: Computed tomographic angiography of the chest with contrast. 3D rendering (Not supervised by radiologist): MIP and/or 3D reconstructed images were created by the technologist. Radiation optimization: All CT scans at this facility use at least one of these dose optimization techniques: automated exposure control; mA and/or kV adjustment per patient size (includes targeted exams where dose is matched to clinical indication); or iterative reconstruction. Contrast material: OMNIPAQUE 350; Contrast volume: 95 ml; Contrast route: INTRAVENOUS (IV); COMPARISON: CT angio chest PE protcl [id number] 11/08/2015 10:00 AM RADIATION DOSE METRICS: Total DLP (mGy-cm): 546.87 FINDINGS: Pulmonary arteries: There are some small filling defects in pulmonary artery branches in the right lower lobe worrisome for pulmonary embolism. These are mostly eccentrically located within the vessel lumen suggesting that they may represent small chronic or subacute emboli. There is defect in the right middle lobe branch which has more the appearance of an acute embolus. Aorta: There is no thoracic aortic aneurysm or dissection. Lungs: Are calcified granulomas in both lungs. There is a 12 mm sized noncalcified nodule left lower lobe not significantly changed from 11/08/2015. No further evaluation is necessary. Pleural spaces: Unremarkable. No pneumothorax. No pleural effusion. Heart: Unremarkable. No cardiomegaly. No pericardial effusion. Heart RV/LV ratio: 1.16 which is evaluated implies some right heart strain. Lymph nodes: There are calcified hilar and mediastinal lymph nodes in keeping with old granulomatous disease. There is no evidence of lymphadenopathy. Adrenal glands: The adrenal glands are normal. Bones/joints: The thoracic spine demonstrates moderate degenerative changes at multiple levels. Soft tissues: Unremarkable. CT/CT angio chest PE protcl [id number] IMPRESSION: Pulmonary embolism
[2022-02-14] MEDS: iohexol 350 mg/mL 100 mL Btl IV (16:05)
== END 2022-02-14 15:46 | disposition home or self-care (01) ==
PROVIDERS: PCP Physician Assistant; Visit Provider Physician Assistant
DX: I82.409 Acute embolism and thrombosis of unspecified deep veins of unspecified lower extremity (principal); I26.99 Other pulmonary embolism without acute cor pulmonale; Z79.899 Other long term (current) drug therapy; M06.00 Rheumatoid arthritis without rheumatoid factor, unspecified site
CPT/HCPCS: 71275; 80076; 82565; 85025; 86140

== ENCOUNTER 2022-04-02 13:10 | Outpatient (CLI) | payer OTHER, SELFPAY ==
--- NOTE | 2022-04-02 15:00 | USCV_ITS ---
Geovanni Vicente Age: 61 Gender: M : 1960 Exam Date: 04/02/2022 14:06 Ordering Phys: Simon Schmidt MD Technologist: Mauro Campos [place] [facility] [place]: follow up DVT PROCEDURES: Venous duplex imaging was performed in only the right lower extremity. The following venous structures were evaluated: common femoral vein, profunda vein, proximal portion of the greater saphenous vein, superficial femoral vein, and the popliteal vein. In addition, the posterior tibial and peroneal trunk were evaluated. Serial compression, augmentation maneuvers, and spectral Doppler flow evaluation were performed. FINDINGS: Normal 2-D Doppler and augmentation and compressibility throughout the lower extremity venous structures. Additional imaging through the proximal calf veins also reveals no thrombus. Limited evaluation of the greater saphenous vein is patent with no thrombus.. CONCLUSIONS No evidence of right lower extremity DVT. Moshe Lewis MD (Electronically Signed) Final Date: 02 April 2022 15:45 S
== END 2022-04-02 13:11 | disposition home or self-care (01) ==
LOC: RAD 13:10
PROVIDERS: PCP Physician Assistant; Visit Provider Internal Medicine Medical Oncology
DX: I82.401 Acute embolism and thrombosis of unspecified deep veins of right lower extremity (principal)
CPT/HCPCS: 93971

== ENCOUNTER 2022-05-13 07:36 | Oncology outpatient (recurring) (ONCR) | payer OTHER, SELFPAY ==
[2022-05-13 07:54] LABS: Eosinophils # 0.1 10^3/uL (0.0-0.8); Eosinophils % 2.1 %; Hematocrit 28.5 % (42.0-52.0); Hemoglobin 8.6 g/dL (11.7-16.6); Lymphocytes # 0.7 10^3/uL (0.8-4.8); Lymphocytes % 16.9 %; Mean Corpuscular HGB Conc 30.2 g/dL (30.0-36.0); Mean Corpuscular Volume 99.3 fl (80-94); Mean Platelet Volume 9.3 fL (7.4-10.4); Monocytes # 0.3 10^3/uL (0.2-0.9); Monocytes % 7.8 %; Neutrophils # 2.77 10^3/uL (1.8-7.7); Neutrophils % 71.9 %; Nucleated Red Blood Cells % 0 %; Platelet Count 245 10^3/cmm (130-400); Red Blood Count 2.87 10^6/uL (4.1-5.3); Red Cell Distribution Width 13.2 % (12.1-15.1); White Blood Count 3.9 10^3/uL (4.0-10.0)
[2022-05-13 08:12] LABS: Alanine Aminotransferase 12 U/L (0-41); Albumin Level 3.6 g/dL (3.5-5.2); Alkaline Phosphatase 60 U/L (40-130); Anion Gap 13.1 (5-19); Aspartate Amino Transferase 12 U/L (0-40); Blood Urea Nitrogen 16 mg/dL (8-23); Calcium 8.8 mg/dL (8.5-10.5); Carbon Dioxide 24 mmol/L (22-29); Chloride 101 mmol/L (98-107); Ferritin 58 ng/mL (30-400); Globulin 2.7 g/dL (1.3-4.6); Glucose 173 mg/dL (65-115); Iron 38 ug/dL (59-158); Osmolality Calculated 283 mOsm/kg (285-295); Percent Saturation 13.6 % (20-50); Potassium 4.1 mmol/L (3.5-5.1); Sodium 134 mmol/L (136-145); Total Bilirubin 0.2 mg/dL (0.15-1.2); Total Iron Binding Capacity 279 mcg/dl; Total Protein 6.3 g/dL (6.6-8.7); Unsaturated Iron Binding 241 ug/dL (112-347)
[2022-05-13 08:15] LABS: Erythrocyte Sedimentation Rate 6 mm/hr (0-10)
== END 2022-05-15 23:59 | disposition home or self-care (01) ==
PROVIDERS: PCP Physician Assistant; Visit Provider Internal Medicine Medical Oncology
DX: D50.0 Iron deficiency anemia secondary to blood loss (chronic) (principal); I78.0 Hereditary hemorrhagic telangiectasia; I82.401 Acute embolism and thrombosis of unspecified deep veins of right lower extremity; Z79.01 Long term (current) use of anticoagulants; Z79.899 Other long term (current) drug therapy
CPT/HCPCS: 36415; 80053; 82728; 83540; 83550; 85025; 85651

== ENCOUNTER 2022-05-27 13:00 | Oncology outpatient (recurring) (ONCR) | payer OTHER, SELFPAY ==
[2022-05-16] MEDS: sodium chloride 0.9% 250 ML 75 ML IV (08:49)
[2022-05-16] MEDS: acetaminophen 325 mg Tablet 650 MG PO (08:50)
[2022-05-16] MEDS: diphenhydrAMINE 50 mg/mL SDV 1mL 25 MG IVP (08:50)
[2022-05-16] MEDS: iron sucrose 200 MG in sodium chloride 0.9% (100 ml) 100 ML 220 MG IV (08:57)
[2022-05-16 10:00] VITALS: BP 113/74; PULSE 80; RESP 18; TEMP 36.7; O2SAT 95
[2022-05-20] MEDS: sodium chloride 0.9% 250 ML 50 ML IV (14:31)
[2022-05-20] MEDS: iron sucrose 200 MG in sodium chloride 0.9% (100 ml) 100 ML 220 MG IV (14:32)
[2022-05-20 15:32] VITALS: BP 106/63; PULSE 84; RESP 16; TEMP 36.7; O2SAT 98
[2022-05-22 13:54] VITALS: BP 133/78; PULSE 89; RESP 16; TEMP 37.2; O2SAT 98
[2022-05-22] MEDS: sodium chloride 0.9% 250 ML 75 ML IV (14:10)
[2022-05-22] MEDS: acetaminophen 325 mg Tablet 650 MG PO (14:11)
[2022-05-22] MEDS: diphenhydrAMINE 50 mg/mL SDV 1mL 25 MG IVP (14:12)
[2022-05-22] MEDS: ondansetron 2 mg/ML SDV 2 mL 8 MG IVP (14:27)
[2022-05-22] MEDS: dexamethasone 4 mg/mL INJ IV (14:49)
[2022-05-22] MEDS: iron sucrose 200 MG in sodium chloride 0.9% (100 ml) 100 ML 220 MG IV (14:58)
[2022-05-22 15:46] VITALS: BP 133/86; PULSE 82; RESP 16; TEMP 36.6; O2SAT 96
[2022-05-24] MEDS: sodium chloride 0.9% 250 ML 100 ML IV (09:28)
[2022-05-24] MEDS: diphenhydrAMINE 50 mg/mL SDV 1mL 25 MG IVP (09:29)
[2022-05-24] MEDS: acetaminophen 325 mg Tablet 650 MG PO (09:29)
[2022-05-24] MEDS: iron sucrose 200 MG in sodium chloride 0.9% (100 ml) 100 ML 220 MG IV (09:30)
[2022-05-24] MEDS: ondansetron 2 mg/ML SDV 2 mL 8 MG IVP (09:56)
[2022-05-24] MEDS: dexamethasone 4 mg/mL INJ IVP (09:56)
[2022-05-27 13:08] VITALS: BP 125/74; PULSE 99; RESP 18; TEMP 37.1; O2SAT 98
[2022-05-27] MEDS: sodium chloride 0.9% 250 ML 75 ML IV (13:26)
[2022-05-27] MEDS: diphenhydrAMINE 50 mg/mL SDV 1mL 25 MG IVP (13:27)
[2022-05-27] MEDS: acetaminophen 325 mg Tablet 650 MG PO (13:27)
[2022-05-27] MEDS: dexamethasone 4 mg/mL INJ IVP (13:31)
[2022-05-27] MEDS: ondansetron 2 mg/ML SDV 2 mL 8 MG IVP (13:31)
[2022-05-27] MEDS: iron sucrose 200 MG in sodium chloride 0.9% (100 ml) 100 ML 220 MG IV (13:45)
[2022-05-27 14:26] VITALS: BP 144/77; PULSE 89; RESP 18; TEMP 36.9; O2SAT 97
== END 2022-06-15 23:59 | disposition home or self-care (01) ==
PROVIDERS: PCP Physician Assistant; Visit Provider Internal Medicine Medical Oncology
DX: D50.0 Iron deficiency anemia secondary to blood loss (chronic) (principal); Z79.52 Long term (current) use of systemic steroids; Z79.899 Other long term (current) drug therapy
CPT/HCPCS: 96365; 96375; J1100; J1200; J1756; J2405; J7050

== ENCOUNTER 2022-06-20 23:23 | Emergency (ER) | payer OTHER, SELFPAY ==
[2022-06-20 23:30] VITALS: BP 131/73; PULSE 79; RESP 18; TEMP 36.8; O2SAT 95; BMI 35.4
--- NOTE | 2022-06-21 00:17 | USR_ITS ---
PROCEDURE INFORMATION: Exam: US Abdomen, Limited; Right Upper Quadrant Exam date and time: 06/21/2022 12:57 AM Age: 61 years old Clinical indication: Abdominal pain; Tenderness; Right upper quadrant (ruq); Patient HX: Ruq pain today. Only abdominal surgeries = umbilical hernia repair, appy in youth. Normal tbili = 0.2; Normal ast =12; Normal alt = 11; Normal alkphos =62; Normal lipase = 27; Additional info: Abd pain TECHNIQUE: Imaging protocol: Real time ultrasound of the abdomen with image documentation. Limited exam focused on the right upper quadrant. COMPARISON: US gall bladder [id number] 09/05/2017 11:45 AM FINDINGS: Liver: No focal intraparenchymal lesions are seen. Gallbladder: No gallbladder wall thickening. No gallstones. No pericholecystic fluid. Negative sonographic Simmons sign the Biliary ducts: No stones. No dilation. Pancreas: Visualized portions of the pancreas are grossly unremarkable in appearance. The pancreas is however incompletely and suboptimally evaluated on this exam. Right kidney: The right kidney measures 13.2 cm x 4.8 cm x 5.8 cm. Right renal inferior pole 2.3 cm hypoechoic cystic structure. The remainder of the right renal parenchyma is grossly unremarkable in appearance. No hydronephrosis. Aorta: No aortic aneurysm, the aorta measures up to 2.7 cm in diameter proximally and tapers distally to 2.4 cm in diameter. Inferior vena cava: The IVC measures 1.8 cm in diameter. US/US gall bladder [id number] IMPRESSION: 1. No acute right upper quadrant findings. 2. Right renal inferior pole hypoechoic cystic structure measuring up to 2.3 cm in diameter is most compatible with a benign cyst.
--- NOTE | 2022-06-21 00:23 | W.ED.ABDPA2 ---
HPI - Abdominal Pain General: Chief Complaint: Abdominal Pain Stated Complaint: abdominal Pain Time Seen by Provider: 06/20/22 23:31 Source: patient Mode of arrival: ambulatory Limitations: no limitations History of Present Illness: 61-year-old male states has been having right upper quadrant pain over the last day. He states been a sharp pain he has had some nausea and vomiting rates pain 8 out of 10 denies any worsening improving factors he denies any fevers no history of gallbladder issues in the past. He has had an appendectomy in the past. PFS ED PFSH: Medical History DDD (degenerative disc disease), lumbar Hereditary hemorrhagic telangiectasia High risk medication use History of pulmonary embolism Immunization counseling Iron deficiency anemia secondary to blood loss (chronic) Osteoarthritis Peripheral neuropathy 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 Surgical History Cornea replaced by transplant H/O eye surgery Left eye prosthesis H/O: knee surgery Right knee x 2, left knee x 1 S/P appy S/P left rotator cuff repair S/P lumbar fusion L4/5 laminectomy with fusion S/P right rotator cuff repair Family History Other Cancer Denies family history of Rheumatoid arthritis Diabetes Lupus CAD (coronary artery disease) Hypertension Social History Smoking and tobacco status: never smoked Alcohol intake: never History of recent travel: No Physical Exam Const: COMMON NORMALS: no acute distress, patient oriented x3 and healthy appearing HENMT: COMMON NORMALS: normocephalic and atraumatic HEAD & SCALP: normocephalic and atraumatic Eye: COMMON NORMALS: Equal, round and reactive pupils present and EOMs intact bilaterally PUPIL: Yes Equal, round and reactive pupils present Neck/C-Spine: COMMON NORMALS: full ROM and supple Chest: COMMONS NORMALS: normal inspection of the chest and normal palpation of entire chest wall Resp: COMMON NORMALS: normal respiratory effort, No retractions, No use of accessory muscles and clear to auscultation bilaterally AUSCULTATION: clear to auscultation bilaterally Cardio: COMMON NORMALS: regular rate, regular rhythm and No murmurs present (Cardio) RATE: regular rate RHYTHM: regular rhythm GI: COMMON NORMALS: Normal to inspection, nondistended, normoactive bowel sounds present, Soft to palpation and no masses PALPATION: Yes Soft to palpation and Yes Tenderness to palpation present (GI) Details: RUQ Extremity: COMMON NORMALS: normal to inspection and full ROM Neuro: COMMON NORMALS: patient oriented x3, moves all extremities and no focal motor deficits Psych: COMMON NORMALS: mental status grossly normal, Normal thought process present and cooperative THOUGHT PROCESS: Normal thought process present Skin: COMMON NORMALS: no rashes or lesions noted and no wounds GENERAL SKIN EXAM: no rashes or lesions noted Course Vital Signs: Vital signs: Vital Signs Temperature 98.2 F 06/20/22 23:30 Pulse Rate 73 06/21/22 00:30 Respiratory Rate 18 06/20/22 23:30 Blood Pressure 105/68 06/21/22 00:30 Pulse Oximetry 93 06/21/22 00:30 Oxygen Delivery Me thod 06/21/22 00:30 MDM - Abdominal Pain Medical Decision Making Patient presents with abdominal pain is since resolved his exam at discharge is benign patient's blood work along with ultrasound are normal he has no signs of acute surgical abdomen has had no chest pain he is stable for discharge he is to follow-up with PCP and return if worsening understands we plan. Lab Data 06/21/22 00:38 06/21/22 00:38 Labs/Radiology: Laboratory Results WBC 4.6 10^3/uL (4.0-10.0) 06/21/22 00:38 RBC 3.20 10^6/uL (4.1-5.3) L 06/21/22 00:38 Hgb 8.7 g/dL (11.7-16.6) L 06/21/22 00:38 Hct 30.7 % (42.0-52.0) L 06/21/22 00:38 MCV 95.9 fl (80-94) H 06/21/22 00:38 MCH 27.2 pg (28.0-34.0) L 06/21/22 00:38 MCHC 28.3 g/dL (30.0-36.0) L 06/21/22 00:38 RDW 14.6 % (12.1-15.1) 06/21/22 00:38 Plt Count 283 10^3/cmm (130-400) 06/21/22 00:38 MPV 9.8 fL (7.4-10.4) 06/21/22 00:38 Neut % (Auto) 75.0 % 06/21/22 00:38 Lymph % (Auto) 15.4 % 06/21/22 00:38 Amelia % (Auto) 6.8 % 06/21/22 00:38 Eos % (Auto) 2.2 % 06/21/22 00:38 Baso % (Auto) 0.4 % 06/21/22 00:38 Neut # (Auto) 3.42 10^3/uL (1.8-7.7) 06/21/22 00:38 Lymph # (Auto) 0.7 10^3/uL (0.8-4.8) L 06/21/22 00:38 Amelia # (Auto) 0.3 10^3/uL (0.2-0.9) 06/21/22 00:38 Eos # (Auto) 0.1 10^3/uL (0.0-0.8) 06/21/22 00:38 Baso # (Auto) 0.0 10^3/uL (0.0-0.1) 06/21/22 00:38 Nucleated RBC % (auto) 0 % 06/21/22 00:38 Nucleated RBCs # 0.0 /100WBC 06/21/22 00:38 Sodium 138 mmol/L (136-145) 06/21/22 00:38 Potassium 4.1 mmol/L (3.5-5.1) 06/21/22 00:38 Chloride 106 mmol/L (98-107) 06/21/22 00:38 Carbon Dioxide 24 mmol/L (22-29) 06/21/22 00:38 Anion Gap 12.1 (5-19) 06/21/22 00:38 BUN 20 mg/dL (8-23) 06/21/22 00:38 Creatinine 0.8 mg/dL (0.7-1.2) 06/21/22 00:38 GFR Calculation 98.0 mL/min (90-130) 06/21/22 00:38 Glucose 147 mg/dL (65-115) H 06/21/22 00:38 Calculated Osmolality 291 mOsm/kg (285-295) 06/21/22 00:38 Calcium 8.4 mg/dL (8.5-10.5) L 06/21/22 00:38 Total Bilirubin 0.2 mg/dL (0.15-1.2) 06/21/22 00:38 AST 12 U/L (0-40) 06/21/22 00:38 ALT 11 U/L (0-41) 06/21/22 00:38 Alkaline Phosphatase 62 U/L (40-130) 06/21/22 00:38 Total Protein 6.4 g/dL (6.6-8.7) L 06/21/22 00:38 Albumin 3.9 g/dL (3.5-5.2) 06/21/22 00:38 Globulin 2.5 g/dL (1.3-4.6) 06/21/22 00:38 Lipase 27 U/L (13-60) 06/21/22 00:38 Discharge Plan Discharge Patient Disposition: Home Clinical Impression: Abdominal pain Condition: Stable Prescriptions: No Action pantoprazole [Protonix] 40 mg tablet,delayed release (DR/EC) 40 mg PO DAILY propranolol 40 mg/5 mL (8 mg/mL) solution 40 mg PO BID sumatriptan succinate 100 mg tablet 100 mg PO Q2H PRN Rx Instructions: do not exceed 2 doses per 24 hrs Eliquis 5 mg tablet 5 mg PO BID ascorbic acid (vitamin C) 1,000 mg tablet 1 g PO DAILY tamsulosin 0.4 mg capsule 0.4 mg PO BEDTIME Actemra ACTPen 162 mg/0.9 mL pen injector 162 mg SUBCUT Q7D Qty: 4 3RF Hold Instructions: Doctor's Order prednisone 5 mg tablet 10 mg PO .as directed PRN (Reason: Rheumatoid Arthritis ) 30 Days Qty: 30 1RF Rx Instructions: use 10 mg daily for 3-4 days for arthritis flare up ondansetron HCl 8 mg tablet 8 mg PO Q8H PRN (Reason: nausea and vomiting) Qty: 30 2RF multivitamin Tablet 1 tab PO DAILY Vitamin B-12 1,000 mcg Tablet 1,000 mcg PO DAILY magnesium 250 mg Tablet 250 mg PO DAILY Vitamin D3 25 mcg (1,000 unit) capsule 50 mcg PO DAILY iron 325 mg (65 mg iron) tablet 650 mg PO BID Discharge Orders: Discharge ED (Routine); Ordered 06/21/22 Ordered By: Esteban Cruz Referrals: Katie Fu PA [Primary Care Provider] - 1-3 days Discharge Diet: Advance as tolerated Discharge Activity: Resume usual activity Patient Instructions: Abdominal Pain (ED) Coding Level of Care Code ED Religious Leader for Chg Fwd Exam Comprehensive
[2022-06-21 00:30] VITALS: BP 105/68; PULSE 73; O2SAT 93
[2022-06-21] MEDS: morphine 4 mg/mL SDV 1 mL IVP (00:44)
[2022-06-21] MEDS: ondansetron 2 mg/ML SDV 2 mL 4 MG IVP (00:45)
[2022-06-21 00:52] LABS: Basophils % 0.4 %; Eosinophils # 0.1 10^3/uL (0.0-0.8); Eosinophils % 2.2 %; Hematocrit 30.7 % (42.0-52.0); Hemoglobin 8.7 g/dL (11.7-16.6); Lymphocytes # 0.7 10^3/uL (0.8-4.8); Lymphocytes % 15.4 %; Mean Corpuscular HGB Conc 28.3 g/dL (30.0-36.0); Mean Corpuscular Hemoglobin 27.2 pg (28.0-34.0); Mean Corpuscular Volume 95.9 fl (80-94); Mean Platelet Volume 9.8 fL (7.4-10.4); Monocytes # 0.3 10^3/uL (0.2-0.9); Monocytes % 6.8 %; Neutrophils # 3.42 10^3/uL (1.8-7.7); Nucleated Red Blood Cells % 0 %; Platelet Count 283 10^3/cmm (130-400); Red Cell Distribution Width 14.6 % (12.1-15.1); White Blood Count 4.6 10^3/uL (4.0-10.0)
[2022-06-21 01:10] LABS: Alanine Aminotransferase 11 U/L (0-41); Albumin Level 3.9 g/dL (3.5-5.2); Alkaline Phosphatase 62 U/L (40-130); Anion Gap 12.1 (5-19); Aspartate Amino Transferase 12 U/L (0-40); Blood Urea Nitrogen 20 mg/dL (8-23); Calcium 8.4 mg/dL (8.5-10.5); Carbon Dioxide 24 mmol/L (22-29); Chloride 106 mmol/L (98-107); Globulin 2.5 g/dL (1.3-4.6); Glucose 147 mg/dL (65-115); Lipase 27 U/L (13-60); Osmolality Calculated 291 mOsm/kg (285-295); Potassium 4.1 mmol/L (3.5-5.1); Sodium 138 mmol/L (136-145); Total Bilirubin 0.2 mg/dL (0.15-1.2); Total Protein 6.4 g/dL (6.6-8.7)
== END 2022-06-21 02:18 | disposition home or self-care (01) ==
PROVIDERS: Physician Assistant; Emergency Provider Emergency Medicine; PCP Physician Assistant
DX: R10.11 Right upper quadrant pain (principal); R11.2 Nausea with vomiting, unspecified; Z79.01 Long term (current) use of anticoagulants
CPT/HCPCS: 76705; 80053; 83690; 85025; 96374; 96375; 99284; J2270; J2405

== ENCOUNTER 2022-07-15 11:00 | Oncology outpatient (recurring) (ONCR) | payer OTHER, SELFPAY ==
[2022-07-04 13:58] LABS: Basophils % 0.5 %; Eosinophils # 0.1 10^3/uL (0.0-0.8); Eosinophils % 1.5 %; Hematocrit 31.8 % (42.0-52.0); Hemoglobin 8.9 g/dL (11.7-16.6); Lymphocytes # 0.6 10^3/uL (0.8-4.8); Mean Corpuscular Hemoglobin 26.3 pg (28.0-34.0); Mean Corpuscular Volume 94.1 fl (80-94); Mean Platelet Volume 9.5 fL (7.4-10.4); Monocytes # 0.3 10^3/uL (0.2-0.9); Monocytes % 7.4 %; Neutrophils # 2.96 10^3/uL (1.8-7.7); Neutrophils % 75.3 %; Nucleated Red Blood Cells % 0 %; Platelet Count 272 10^3/cmm (130-400); Red Blood Count 3.38 10^6/uL (4.1-5.3); Red Cell Distribution Width 16.1 % (12.1-15.1); White Blood Count 3.9 10^3/uL (4.0-10.0)
[2022-07-04 15:04] LABS: Alanine Aminotransferase 12 U/L (0-41); Alkaline Phosphatase 68 U/L (40-130); Aspartate Amino Transferase 14 U/L (0-40); Blood Urea Nitrogen 14 mg/dL (8-23); Calcium 9.3 mg/dL (8.5-10.5); Carbon Dioxide 25 mmol/L (22-29); Chloride 105 mmol/L (98-107); Ferritin 56 ng/mL (30-400); Globulin 2.8 g/dL (1.3-4.6); Glomerular Filtration Rate 85.5 mL/min (90-130); Glucose 105 mg/dL (65-115); Iron 19 ug/dL (59-158); Osmolality Calculated 291 mOsm/kg (285-295); Percent Saturation 6.4 % (20-50); Sodium 140 mmol/L (136-145); Total Bilirubin 0.2 mg/dL (0.15-1.2); Total Iron Binding Capacity 296 mcg/dl; Total Protein 6.8 g/dL (6.6-8.7); Unsaturated Iron Binding 277 ug/dL (112-347)
[2022-07-05] MEDS: sodium chloride 0.9% 250 ML 100 ML IV (08:39)
[2022-07-05] MEDS: acetaminophen 325 mg Tablet 650 MG PO (08:40)
[2022-07-05] MEDS: diphenhydrAMINE 50 mg/mL SDV 1mL 25 MG IVP (08:40)
[2022-07-05] MEDS: ondansetron 2 mg/ML SDV 2 mL 8 MG IVP (08:40)
[2022-07-05] MEDS: iron sucrose 200 MG in sodium chloride 0.9% (100 ml) 100 ML 220 MG IV (08:56)
[2022-07-08] MEDS: diphenhydrAMINE 25 mg Capsule PO (09:32)
[2022-07-08] MEDS: acetaminophen 325 mg Tablet 650 MG PO (09:33)
[2022-07-08] MEDS: sodium chloride 0.9% 250 ML IV (09:33)
[2022-07-08] MEDS: ondansetron 2 mg/ML SDV 2 mL 8 MG IVP (09:33)
[2022-07-08] MEDS: iron sucrose 200 MG in sodium chloride 0.9% (100 ml) 100 ML 220 MG IV (09:39)
[2022-07-12] MEDS: sodium chloride 0.9% 250 ML 75 ML IV (09:08)
[2022-07-12] MEDS: acetaminophen 325 mg Tablet 650 MG PO (09:12)
[2022-07-12] MEDS: ondansetron 2 mg/ML SDV 2 mL 8 MG IVP (09:14)
[2022-07-12] MEDS: diphenhydrAMINE 50 mg/mL SDV 1mL 25 MG IVP (09:17)
[2022-07-12] MEDS: iron sucrose 200 MG in sodium chloride 0.9% (100 ml) 100 ML 220 MG IV (09:29)
[2022-07-12 10:18] VITALS: BP 112/70; PULSE 69; RESP 18; TEMP 36.4; O2SAT 95
[2022-07-15] MEDS: acetaminophen 325 mg Tablet 650 MG PO (11:27)
[2022-07-15] MEDS: sodium chloride 0.9% 250 ML 100 ML IV (11:27)
[2022-07-15] MEDS: ondansetron 2 mg/ML SDV 2 mL 8 MG IVP (11:28)
[2022-07-15] MEDS: diphenhydrAMINE 50 mg/mL SDV 1mL 25 MG IVP (11:28)
[2022-07-15] MEDS: iron sucrose 200 MG in sodium chloride 0.9% (100 ml) 100 ML 220 MG IV (11:36)
[2022-07-15 13:31] VITALS: BP 117/73; PULSE 69; TEMP 36.7; O2SAT 100
== END 2022-07-16 23:59 | disposition home or self-care (01) ==
PROVIDERS: PCP Physician Assistant; Visit Provider Internal Medicine Medical Oncology
DX: D50.0 Iron deficiency anemia secondary to blood loss (chronic) (principal); Z79.52 Long term (current) use of systemic steroids; Z79.899 Other long term (current) drug therapy; Z53.9 Procedure and treatment not carried out, unspecified reason; D64.9 Anemia, unspecified; I78.0 Hereditary hemorrhagic telangiectasia; I82.401 Acute embolism and thrombosis of unspecified deep veins of right lower extremity; I26.99 Other pulmonary embolism without acute cor pulmonale; Z79.01 Long term (current) use of anticoagulants
CPT/HCPCS: 36415; 80053; 82728; 83540; 83550; 85025; 96365; 96375; J1200; J1756; J2405; J7050

== ENCOUNTER 2022-07-17 13:26 | Oncology outpatient (recurring) (ONCR) | payer OTHER, SELFPAY ==
--- NOTE | 2022-07-17 13:45 | USCV_ITS ---
Geovanni Vicente Age: 61 Gender: M : 1960 Exam Date: 07/17/2022 13:57 Ordering Phys: Simon Schmidt MD Technologist: Mauro Campos Exam Location: [facility] [place] Indication: right leg swelling PROCEDURES: Venous duplex imaging was performed in only the right lower extremity. The following venous structures were evaluated: common femoral vein, profunda vein, proximal portion of the greater saphenous vein, superficial femoral vein, and the popliteal vein. In addition, the posterior tibial and peroneal trunk were evaluated. Serial compression, augmentation maneuvers, and spectral Doppler flow evaluation were performed. FINDINGS: Normal 2-D Doppler and augmentation and compressibility throughout the lower extremity venous structures. Additional imaging through the proximal calf veins also reveals no thrombus. Limited evaluation of the greater saphenous vein is patent with no thrombus. CONCLUSIONS No DVT right lower extremity. Dr. Sarita Bruce DO (Electronically Signed) Final Date: 17 July 2022 14:35 S
[2022-07-17] MEDS: sodium chloride 0.9% 250 ML 100 ML IV (14:44)
[2022-07-17] MEDS: ondansetron 2 mg/ML SDV 2 mL 8 MG IVP (14:44)
[2022-07-17] MEDS: acetaminophen 325 mg Tablet 650 MG PO (14:45)
[2022-07-17] MEDS: diphenhydrAMINE 50 mg/mL SDV 1mL 25 MG IVP (14:45)
[2022-07-17] MEDS: iron sucrose 200 MG in sodium chloride 0.9% (100 ml) 100 ML 220 MG IV (15:05)
== END 2022-07-17 23:59 | disposition home or self-care (01) ==
LOC: RAD 13:42 → ONCMED 14:38
PROVIDERS: PCP Physician Assistant; Visit Provider Internal Medicine Medical Oncology
DX: D50.0 Iron deficiency anemia secondary to blood loss (chronic) (principal); Z79.52 Long term (current) use of systemic steroids; Z79.899 Other long term (current) drug therapy; Z53.9 Procedure and treatment not carried out, unspecified reason; D64.9 Anemia, unspecified; R22.41 Localized swelling, mass and lump, right lower limb
CPT/HCPCS: 93971; 96365; 96375; J1200; J1756; J2405; J7050

== ENCOUNTER 2022-07-19 07:01 | Outpatient (CLI) | payer OTHER, SELFPAY ==
--- NOTE | 2022-07-19 07:00 | CT_ITS ---
WS: [id number] CT CHEST ANGIOGRAPHY WITH REFORMATS HISTORY: Follow-up for pulmonary emboli TECHNIQUE: Contiguous axial images are obtained through the chest during arterial injection of intrav enous contrast. Images are reconstructed to evaluate the pulmonary arteries. MIP imaging also reviewe d. All CT scans at [facility] use at least one of these dose optimization techniques: automat ed exposure control; mA and/or kV adjustment per patient size (includes targeted exams where dose is matched to clinical indication); or iterative reconstruction. CONTRAST: Omnipaque 350; 95 mL IV. DLP: 513.67 mGy.cm COMPARISON: 02/14/2022 Contrast opacification is adequate. No central pulmonary artery emboli. Opacification of the pulmonar y arteries is not as dense as the prior study but there are no large filling defects. No central fill ing defects. Eccentric filling defect in the segmental branch LEFT lower lobe may be from chronic PE. Previously described filling defects in the RIGHT lower lobe branches are no longer present. No RIGH T heart strain. Pulmonary artery size is normal. Very mild atherosclerosis thoracic aorta. Poor inspiration. Crowding of the lung markings would impro ve with better inspiratory effort. No dense consolidation or mass. No pericardial or pleural effusion . Mild enlargement of the LEFT heart chambers. No mediastinal or hilar adenopathy. CT/CT angio chest PE protcl [id number] IMPRESSION: 1. Chronic appearing segmental branch LEFT lower lobe emboli. Nonocclusive and eccentric. 2. No central filling defects in the pulmonary arteries. 3. No RIGHT heart strain. 4. Mild LEFT heart enlargement.
[2022-07-19] MEDS: iohexol 350 mg/mL 500 mL Btl (per mL) IV (07:42)
== END 2022-07-19 07:02 | disposition home or self-care (01) ==
LOC: RAD 07:01
PROVIDERS: PCP Physician Assistant; Visit Provider Internal Medicine Medical Oncology
DX: I26.99 Other pulmonary embolism without acute cor pulmonale (principal)
CPT/HCPCS: 71275; Q9967

== ENCOUNTER 2022-08-14 10:20 | Oncology outpatient (recurring) (ONCR) | payer OTHER, SELFPAY ==
[2022-08-14 11:42] LABS: Basophils % 0.6 %; Eosinophils # 0.1 10^3/uL (0.0-0.8); Eosinophils % 2.4 %; Hematocrit 35.1 % (42.0-52.0); Hemoglobin 10.4 g/dL (11.7-16.6); Lymphocytes # 0.7 10^3/uL (0.8-4.8); Lymphocytes % 19.9 %; Mean Corpuscular HGB Conc 29.6 g/dL (30.0-36.0); Mean Corpuscular Hemoglobin 28.9 pg (28.0-34.0); Mean Corpuscular Volume 97.5 fl (80-94); Mean Platelet Volume 9.6 fL (7.4-10.4); Monocytes # 0.3 10^3/uL (0.2-0.9); Monocytes % 9.1 %; Neutrophils # 2.24 10^3/uL (1.8-7.7); Neutrophils % 67.7 %; Nucleated Red Blood Cells % 0 %; Platelet Count 262 10^3/cmm (130-400); Red Cell Distribution Width 16.1 % (12.1-15.1); White Blood Count 3.3 10^3/uL (4.0-10.0)
[2022-08-14 12:16] LABS: Alanine Aminotransferase 14 U/L (0-41); Albumin Level 4.2 g/dL (3.5-5.2); Alkaline Phosphatase 60 U/L (40-130); Anion Gap 15.3 (5-19); Aspartate Amino Transferase 18 U/L (0-40); Blood Urea Nitrogen 14 mg/dL (8-23); Calcium 9.1 mg/dL (8.5-10.5); Carbon Dioxide 25 mmol/L (22-29); Chloride 104 mmol/L (98-107); Ferritin 71 ng/mL (30-400); Globulin 2.6 g/dL (1.3-4.6); Glomerular Filtration Rate 97.6 mL/min (90-130); Glucose 102 mg/dL (65-115); Iron 271 ug/dL (59-158); Osmolality Calculated 291 mOsm/kg (285-295); Potassium 4.3 mmol/L (3.5-5.1); Sodium 140 mmol/L (136-145); Total Bilirubin 0.2 mg/dL (0.15-1.2); Total Protein 6.8 g/dL (6.6-8.7)
[2022-08-14 12:41] LABS: Unsaturated Iron Binding < 17 ug/dL (112-347)
== END 2022-09-13 23:59 | disposition home or self-care (01) ==
PROVIDERS: PCP Physician Assistant; Visit Provider Internal Medicine Medical Oncology
DX: D64.9 Anemia, unspecified (principal)
CPT/HCPCS: 36415; 80053; 82728; 83540; 83550; 85025

== ENCOUNTER 2022-09-02 08:58 | Day surgery (SDC) | payer OTHER, SELFPAY ==
[2022-08-30 14:31] VITALS: BMI 36.1
[2022-09-02] VITALS (7 sets, daily range): BP systolic 111–129; BP diastolic 71–91; PULSE 62–82; RESP 16–17; TEMP 36.2–37.1; O2SAT 93–98
[2022-09-02] MEDS: sodium chloride 0.9% 1,000 ML 30 ML IV (09:29)
--- NOTE | 2022-09-02 09:36 | W.PM.OPSUD ---
Surgery/Procedure H&P Update DATE OF PROCEDURE: September 02, 2022 DATE H&P PERFORMED: 08/27/22 H&P UPDATE INFORMATION: I have reviewed H&P completed within last 30 days, I have examined patient prior to procedure and No changes to prior documentation CHANGES TO PREVIOUS DOCUMENTATION: No changes PREOP DIAGNOSIS: Recurrent bilateral epistaxis. PRIMARY INDICATION FOR PROCEDURE: Recurrent bilateral epistaxis. Taking long-term Eliquis. PLANNED PROCEDURE: Operation Date: 09/02/22 10:35 Proposed Procedures p 03512 - control of nasal hemorrhage R04.0(Not Applicable) - Fernando Huang MD
--- NOTE | 2022-09-02 10:01 | P.ANESASSM_ITS ---
Pre-Anesthetic Assessment Height/Weight: Height 1.91 m Weight 131.088 kg Temp Pulse Resp BP Pulse Ox O2 Del Method 97.6 F 82 16 120/91 96 09/02/22 09:21 09/02/22 09:21 09/02/22 09:21 09/02/22 09:21 09/02/22 09:21 09/02/22 09:21 Preop Diagnosis: Recurrent bilateral epistaxis. Operation Date: 09/02/22 10:35 Proposed Procedures p 06903 - control of nasal hemorrhage R04.0(Not Applicable) - Fernando Huang MD Familial anesthetic complications: None Was Beta Julia taken within 24 hours: N/A Was Clonidine taken within 24 hours: N/A Last intake: Intake Last Liquid Date 09/01/22 Last Liquid Time 22:00 Last Solid Date 09/01/22 Last Solid Time 16:00 Social No alcohol and No tobacco Exam alert, oriented x 3, clear to auscultation bilaterally and regular rate & rhythm Airway Mallampati: Class IV Dentition: full Pulmonary HX PE (chronic) - no sob CV/HEM Anemia DVT (post surgical) [facility] [place] Rheumatoid Arthritis Neuropsych HHT w/ Osler Medina Rendau Syndrom Anesthetic Plan ASA status: 3 Anesthesia: General Other: Patient states he has been having chronic bleeding from nose which he has to swallow. Says he may have swallowed less than a cup's worth over the course of the night, no nausea Risk of > 500 ml blood loss (7ml/kg in children): No Medications/Allergies Home Medications Medication Instructions Recorded Confirmed Last Taken Type cyanocobalamin (vitamin B-12) 1,000 mcg PO DAILY 03/30/20 09/02/22 09/01/22 History 1,000 mcg tablet (Vitamin B-12) magnesium 250 mg tablet 250 mg PO DAILY 03/30/20 09/02/22 09/01/22 History multivitamin 1 tab PO DAILY 03/30/20 09/02/22 09/01/22 History sumatriptan succinate 100 mg tablet 100 mg PO Q2H PRN Migraine Headache 08/14/20 09/02/22 3 Months Ago History ~06/04/22 pantoprazole 40 mg tablet,delayed 40 mg PO DAILY 01/02/21 09/02/22 09/01/22 History release (Protonix) apixaban 5 mg tablet (Eliquis) 2.5 mg PO BID 02/25/22 09/02/22 09/02/22 History ascorbic acid (vitamin C) 1,000 mg 1 g PO DAILY 03/04/22 09/02/22 09/01/22 History tablet cholecalciferol (vitamin D3) 25 50 mcg PO DAILY 03/04/22 09/02/22 09/01/22 History mcg (1,000 unit) capsule (Vitamin D3) ferrous sulfate 325 mg (65 mg 650 mg PO DAILY 03/04/22 09/02/22 09/01/22 History iron) tablet (iron) tamsulosin 0.4 mg capsule 0.4 mg PO BEDTIME 03/04/22 09/02/22 08/29/22 History ondansetron HCl 8 mg tablet 8 mg PO Q8H PRN nausea and 05/22/22 09/02/22 1 Month Ago Rx vomiting #30 tabs ~08/05/22 prednisone 5 mg tablet 10 mg PO .as directed PRN 08/08/22 09/02/22 2 Weeks Ago Rx Rheumatoid Arthritis 30 days #30 ~08/19/22 tabs abatacept 125 mg/mL subcutaneous 125 mg SUBCUT .Q7days #4 mL 08/13/22 09/02/22 08/28/22 Rx syringe (Orencia) Allergies Allergy/AdvReac Type Severity Reaction Status Date / Time gabapentin Allergy ADR-Itching Verified 09/02/22 09:17 meperidine [From Demerol] Allergy ADR-Nausea Verified 09/02/22 09:17 Current Medications Generic Name Dose Route Start Last Admin Trade Name Freq PRN Reason Stop Dose Admin Sodium Chloride 1,000 mls @ 30 mls/hr 09/02/22 09:30 09/02/22 09:29 Sodium Chloride 0.9% IV 09/03/22 09:29 30 mls/hr .Q24H SALVADOR Administration PFSH Anesthesia Medical History DDD (degenerative disc disease), lumbar Deep vein thrombosis (DVT) of right lower extremity Hereditary hemorrhagic telangiectasia High risk medication use History of pulmonary embolism Immunization counseling Iron deficiency anemia secondary to blood loss (chronic) Osteoarthritis Peripheral neuropathy Pulmonary embolism 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 Surgical History Cornea replaced by transplant H/O eye surgery Left eye prosthesis H/O: knee surgery Right knee x 2, left knee x 1 S/P appy S/P left rotator cuff repair S/P lumbar fusion L4/5 laminectomy with fusion S/P right rotator cuff repair Family History Other Cancer Denies family history of Rheumatoid arthritis Diabetes Lupus CAD (coronary artery disease) Hypertension Social History Smoking and tobacco status: never smoked Alcohol intake: never Data Anesthesia Cardiac Studies: Sestamibi Stress Test (Cardiology) 04/18
[2022-09-02] MEDS: ceFAZolin 3,000 MG in sodium chloride 0.9% (100 ml) 100 ML 200 MG IV (10:04)
[2022-09-02] MEDS: oxymetazoline 0.05% Nasal Spray 15 mL 2 SPRAY NOSTRIL-B (10:33)
[2022-09-02] MEDS: neomycin-poly-bacitracin oint 28 gm 1 APPLIC TOPICAL (10:34)
--- NOTE | 2022-09-02 10:46 | P.OP_ITS ---
Operative Report Date of procedure: September 02, 2022 Pre-op diagnosis: Preop Diagnosis Recurrent bilateral epistaxis. Post-op diagnosis: Recurrent bilateral epistaxis Post-op findings: Arterial bleeds from multiple locations bilateral anterior septum vestibule and inferior turbinates Procedure done: Exploration of nose and control of epistaxis complex Implants: 2 Telfa packs Specimens removed/disposition: No specimens removed Pathology: Nothing for pathology Surgeon: Fernando Huang MD Anesthesia: General Estimated blood loss: 15 mL Complications: No complications encountered Findings: Multiple locations of arterial bleed from anterior lateral nasal vestibule left side as well as apex of septum and lateral mucosa as well as floor of nose and multiple locations on Kiesselbach's plexus right side had multiple areas on Kiesselbach's plexus as well as inferior vestibule and lateral and superior septum and lateral mucosal junction. Brief History: 62-year-old male patient who is on Eliquis from having previous multiple thrombotic problems in the past. Patient has Ant Medina Rondu syndrome. Patient tends to try and still be active in golf. All it takes for him to bleed is for him to bend over to put his tea in the ground and a will start. Most often from the left side but oftentimes from the right as well. Pretty much every day bleeds. He has had treatment with fulguration in the past. I have never treated him. With failure to improve with conservative measures and moisturization the patient is going to be brought to the operating room to undergo exploration and control of hemorrhage. Procedure and risks and complications are understood and informed consent is granted and witnessed. The risks and complications discussed included bleeding infection scarring swelling bruising recurrence need for additional treatment and anesthetic risks including potential heart attack stroke or not surviving the surgery. Procedure: Description of procedure: The patient was placed on the operating table in the supine position. Adequate general endotracheal tube anesthesia was obtained. A timeout was accomplished identifying the patient date of plan procedure allergies fire risk and medications given. With all in agreement the procedure continued. Was then prepped and draped in usual fashion. The nose was packed bilaterally with Afrin soaked cottonoids. This to help remove scabbing and dried blood from both sides. After these were removed nasal hairs were trimmed with scissors. Then inspection of the nose with gentle manipulation showed that there was a large vessel at the vestibule anteriorly and superior laterally. This was treated with the bipolar nasal cautery. Then with further manipulations there was found to be bleeding from an artery at the floor of the nose extending up into the Kiesselbach's plexus area. Also multiple branches of those vessels required bipolar cautery. Then checking over to the right side the superior and lateral vestibule area as well as floor and multiple vessel sites on Kiesselbach's plexus. The septum was found to be significantly deviated especially in the mid to posterior portion to the right side. This contributes to drying as well. No thought was given to try and do a septoplasty on this patient because of his hypocoagulation. After several minutes of ob servation the patient's nose was packed with Telfa soaked in Afrin and coated with Neosporin. First on the left side. Then the right. The right side started bleeding from the superior mid septum because of the deviation. This was once again treated with bipolar cautery. Then the packing was replaced. No further bleeding was evident. The mouth and oropharynx were suctioned clean. No bleeding was seen posteriorly. The face was cleansed. Patient was then returned to anesthesia for wake-up and transport to recovery. He tolerated the procedure well had an estimated blood loss of 15 mL during the procedure and arrived in recovery in stable condition.
[2022-09-02] MEDS: TRAMadol 50 mg Tablet PO (11:44)
--- NOTE | 2022-09-02 11:50 | PC.NURSE ---
Spoke with Dr Huang on phone. Received one time order for PO Ultram for pain for patient. Scripts given to . Copies in chart. and patient verbalized understanding of DC instructions.
--- NOTE | 2022-09-02 13:52 | ANE.PACU2 ---
Inpatient post-anesthesia follow up: Airway intact: Yes Vital signs: Temperature 98.2 F Pulse Rate 62 Respiratory Rate 16 Blood Pressure 122/77 Pulse Oximetry 97 Oxygen Delivery Me thod Room Air Oxygen Flow Rate 6 Fraction of Inspir ed Oxygen Hydration adequate: Yes Nausea and vomiting: No Pain level: 1 Mental status: Baseline
== END 2022-09-02 12:04 | disposition home or self-care (01) ==
PROVIDERS: PCP Physician Assistant; Visit Provider Otolaryngology
PROC: (CPT 30901; principal; 2022-09-02 10:25)
DX: R04.0 Epistaxis (principal); Z86.711 Personal history of pulmonary embolism; Z86.718 Personal history of other venous thrombosis and embolism; M06.9 Rheumatoid arthritis, unspecified; M19.90 Unspecified osteoarthritis, unspecified site
CPT/HCPCS: 30901; J0330; J0690; J1100; J1720; J2370; J2405; J2704; J3010; J3490; J7030

== ENCOUNTER 2022-10-03 11:20 | Oncology outpatient (recurring) (ONCR) | payer OTHER, SELFPAY ==
[2022-10-03 11:41] LABS: Basophils % 0.7 %; Eosinophils # 0.1 10^3/uL (0.0-0.8); Eosinophils % 2.2 %; Hematocrit 42.6 % (42.0-52.0); Lymphocytes # 0.6 10^3/uL (0.8-4.8); Lymphocytes % 22.3 %; Mean Corpuscular HGB Conc 30.5 g/dL (30.0-36.0); Mean Corpuscular Volume 91.6 fl (80-94); Mean Platelet Volume 8.9 fL (7.4-10.4); Monocytes # 0.2 10^3/uL (0.2-0.9); Monocytes % 7.6 %; Neutrophils # 1.87 10^3/uL (1.8-7.7); Neutrophils % 67.2 %; Nucleated Red Blood Cells % 0 %; Platelet Count 213 10^3/cmm (130-400); Red Blood Count 4.65 10^6/uL (4.1-5.3); Red Cell Distribution Width 13.5 % (12.1-15.1); White Blood Count 2.8 10^3/uL (4.0-10.0)
[2022-10-03 11:59] LABS: Alanine Aminotransferase 12 U/L (0-41); Albumin Level 3.9 g/dL (3.5-5.2); Alkaline Phosphatase 68 U/L (40-130); Anion Gap 12.2 (5-19); Aspartate Amino Transferase 21 U/L (0-40); Blood Urea Nitrogen 15 mg/dL (8-23); Calcium 8.7 mg/dL (8.5-10.5); Carbon Dioxide 26 mmol/L (22-29); Chloride 104 mmol/L (98-107); Ferritin 78 ng/mL (30-400); Glomerular Filtration Rate 97.6 mL/min (90-130); Glucose 96 mg/dL (65-115); Iron 86 ug/dL (59-158); Osmolality Calculated 287 mOsm/kg (285-295); Percent Saturation 32.3 % (20-50); Potassium 4.2 mmol/L (3.5-5.1); Sodium 138 mmol/L (136-145); Total Bilirubin 0.2 mg/dL (0.15-1.2); Total Iron Binding Capacity 266 mcg/dl; Total Protein 6.9 g/dL (6.6-8.7); Unsaturated Iron Binding 180 ug/dL (112-347)
== END 2022-10-13 23:59 | disposition home or self-care (01) ==
LOC: ONCMED 11:21
PROVIDERS: PCP Physician Assistant; Visit Provider Internal Medicine Medical Oncology
DX: D50.0 Iron deficiency anemia secondary to blood loss (chronic) (principal)
CPT/HCPCS: 36415; 80053; 82728; 83540; 83550; 85025

== ENCOUNTER → 2022-11-07 11:33 | Outpatient (BNVA) | payer OTHER, SELFPAY | PROVIDERS: PCP Physician Assistant; Visit Provider Internal Medicine Rheumatology | DX: M51.36 Other intervertebral disc degeneration, lumbar region (principal); Z71.89 Other specified counseling; Z79.899 Other long term (current) drug therapy | CPT/HCPCS: 36415; 85025 ==

== ENCOUNTER 2022-11-13 07:31 | Outpatient (CLI) | payer OTHER, SELFPAY ==
--- NOTE | 2022-11-13 07:30 | CT_ITS ---
WS: [id number] CT chest w con* [id number] HISTORY: Follow-up lung nodule. TECHNIQUE: Axial imaging performed through the thorax. Coronal and sagittal reformats are submitted. All CT scans at [facility] use at least one of these dose optimization techniques: automated exposure control; mA and/or kV adjustment per patient size (includes targeted exams where dose is mat ched to clinical indication); or iterative reconstruction. CONTRAST: Omnipaque 350; 100 mL IV. DLP: 521.30 mGy.cm COMPARISON: 08/22/2022, 11/08/2015, 07/19/2022, 02/14/2022 Lungs and central airway: Recently described noncalcified nodule in the LEFT lung base is reidentifie d measuring 13 x 12 mm. This nodule has been present on multiple prior examinations dating back to . Minimal increase in size. This may be a small AVM or vascular nodule to the adjacent clustering i ntact without vessels. No increase in size of any significance. 5 mm nodule along the RIGHT minor fis sure. 2 mm nodule LEFT lower lobe. Pleura: Normal. No pleural effusion. Heart and pericardium: Normal size heart with no pericardial effusion. Mediastinum and albert: No mediastinum or hilar adenopathy. Vessels: Normal aorta. Pulmonary artery is mildly dilated 3.7 cm. Chest wall and lower neck: No soft tissue masses. Upper abdomen: Very small hiatal hernia. Hepatic steatosis. No adrenal mass. Osseous structures: Mild thoracic spondylosis. CT/CT chest w con* [id number] IMPRESSION: 1. Long-term stability LEFT lower lobe noncalcified pulmonary nodule measuring 13 x 12 mm. This nodule has been present since at least 2015 with minimal incr ease in size. No pneumonia. No new or increasing size of pulmonary nodules. 2. Mild pulmonary hypertension. 3. No adenopathy.
[2022-11-13] MEDS: iohexol 350 mg/mL 500 mL Btl (per mL) IV (07:58)
== END 2022-11-13 07:32 | disposition home or self-care (01) ==
PROVIDERS: PCP Physician Assistant; Visit Provider Internal Medicine Medical Oncology
DX: R91.8 Other nonspecific abnormal finding of lung field (principal); I27.20 Pulmonary hypertension, unspecified
CPT/HCPCS: 71260; Q9967

== ENCOUNTER 2022-12-06 05:23 | Emergency (ER) | payer OTHER, SELFPAY ==
[2022-12-06 05:25] VITALS: BP 106/73; PULSE 74; RESP 16; TEMP 36.5; O2SAT 96; BMI 34.6
[2022-12-06 05:34] VITALS: BP 129/81; PULSE 74; RESP 17; O2SAT 95
[2022-12-06] MEDS: famotidine 20 mg/2 mL INJ 40 MG IVP (05:36)
[2022-12-06] MEDS: dexamethasone 10 mg/mL INJ IVP (05:43)
[2022-12-06] MEDS: diphenhydrAMINE 50 mg/mL SDV 1mL IVP (05:43)
--- NOTE | 2022-12-06 05:51 | XRR_ITS ---
PROCEDURE INFORMATION: Exam: XR Chest Exam date and time: 12/06/2022 6:26 AM Age: 62 years old Clinical indication: Dyspnea; Additional info: Reaction TECHNIQUE: Imaging protocol: Radiologic exam of the chest. Views: 1 view. COMPARISON: CT chest w con* [id number] 11/13/2022 7:53 AM FINDINGS: Lungs: Lungs are well aerated without a focal area of consolidation. Pleural spaces: Unremarkable. No pleural effusion. No pneumothorax. Heart/Mediastinum: The cardiac silhouette appears enlarged, some of which is magnification related to the AP projection. Bones/joints: Unremarkable. XR/XR chest 1V portable [id number] IMPRESSION: Lungs are well aerated without a focal area of consolidation.
[2022-12-06 06:04] VITALS: BP 111/73; PULSE 70; RESP 14; O2SAT 94
--- NOTE | 2022-12-06 06:37 | ECG_ITS ---
[facility] Test Date: 2022-12-06 Pat Name: Vicente Galarza Department: Room: Gender: Male Training Designer: : 1960 Requested By: Cheko Naidu Order Number: [id number] Hui MD: Jayson Hansen M.D. Measurements Intervals [place] Rate: 68 P: 35 MS: 190 QRS: 27 QRSD: 93 T: 52 QT: 399 QTc: 427 Interpretive Statements SINUS RHYTHM Compared to ECG 03/30/2020 15:48:46 Ventricular premature complex(es) no longer present Electronically Signed On 12-06-2022 8:42:47 CDT by Jayson Hansen M.D. [id number]
--- NOTE | 2022-12-06 06:41 | ED_ITS ---
HPI - Allergic Reaction General: Chief complaint: Allergic Reaction Stated complaint: ALLERGIC REACTION Time Seen by Provider: 12/06/22 05:24 Source: patient Mode of arrival: EMS History of Present Illness: HPI narrative: 62-year-old male woke up this morning around 3 AM had swelling of his face difficulty swallowing generalized weakness he was briefly diarrhea paretic. He had a red flushed generalized vague rash. On arrival here he denies difficulty speaking swallowing or breathing but he does still have red flushed face mild swelling around the face and eyes. He has not used any new medications he recently started diclofenac but he has been on that in the past. No other new foods or medications. MD complaint: allergic reaction Onset (ago): hour(s) Associated symptoms: Deny abdominal pain, difficulty breathing, dysphagia, dizziness, facial swelling, hoarseness, itching, lip swelling, nausea, rash, tongue swelling or vomiting Severity: mild Treatment prior to arrival: benadryl Review of Systems Const: Denies: fever(s), chills, fatigue or malaise ENMT: Denies: throat pain or hoarseness Card: Denies: chest pain, palpitations, irregular heart rhythm, edema, dyspnea on exertion or orthopnea Resp: Denies: dyspnea, productive cough or non-productive cough GI: Denies: abdominal pain, nausea, vomiting or dysphagia : Denies: flank pain, dysuria, urinary frequency or urinary urgency Skin/Breast: Denies: rash or pruritus Neuro: Denies: headache(s) or dizziness All/Imm: Denies: tongue swelling or facial swelling PFS ED PFSH: Medical History DDD (degenerative disc disease), lumbar Deep vein thrombosis (DVT) of right lower extremity Hereditary hemorrhagic telangiectasia High risk medication use History of pulmonary embolism Immunization counseling Iron deficiency anemia secondary to blood loss (chronic) Osteoarthritis Peripheral neuropathy Pulmonary embolism 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 Surgical History Cornea replaced by transplant H/O eye surgery Left eye prosthesis H/O: knee surgery Right knee x 2, left knee x 1 History of nasal cauterization S/P appy S/P left rotator cuff repair S/P lumbar fusion L4/5 laminectomy with fusion S/P right rotator cuff repair Family History Other Cancer Denies family history of Rheumatoid arthritis Diabetes Lupus CAD (coronary artery disease) Hypertension Social History Smoking and tobacco status: never smoked Alcohol intake: never Physical Exam Const: GENERAL APPEARANCE: cooperative and comfortable ORIENTATION/CONSCIOUSNESS: Yes awake, Yes oriented to person, Yes oriented to place and Yes oriented to time HENMT: COMMON NORMALS: normocephalic, atraumatic and hearing grossly normal bilaterally HEAD & SCALP: normocephalic and atraumatic OTHER: Face is flushed with mild symmetrical swelling around mouth and nose no posterior pharyngeal swelling no swelling of the tongue no stridor. Resp: COMMON NORMALS: normal respiratory effort, No retractions, No use of accessory muscles and clear to auscultation bilaterally AUSCULTATION: clear to auscultation bilaterally Cardio: COMMON NORMALS: regular rate, regular rhythm and No murmurs present (Cardio) RATE: regular rate RHYTHM: regular rhythm GI: COMMON NORMALS: Soft to palpation and No hepatosplenomegaly present AUSCULTATION: Yes normoactive bowel sounds PALPATION: Yes Soft to palpation, No Tenderness to palpation present (GI), No Guarding due to palpation present (GI) and Yes No hepatosplenomegaly present Extremity: COMMON NORMALS: normal to inspection, capillary refill normal, no clubbing, cyanosis or edema, no calf tenderness and no pedal edema Neuro: SENSORIUM/ORIENTATION: Yes oriented to person, Yes oriented to place and Yes oriented to time Skin: COMMON NORMALS: no rashes or lesions noted GENERAL SKIN EXAM: no rashes or lesions noted Course Vital Signs: Vital signs: Vital Signs Temperature 97.7 F 12/06/22 05:25 Pulse Rate 70 12/06/22 06:56 Respiratory Rate 15 12/06/22 06:56 Blood Pressure 122/76 12/06/22 06:56 Pulse Oximetry 94 12/06/22 06:56 Oxygen Delivery Me thod Room Air 12/06/22 06:04 MDM - Allergic Reaction Medical Decision Making Resolved after treatment with steroids antihistamines and H2 blockers patient is feeling much better discharged home on a steroid taper and use Benadryl as needed follow-up with his primary care doctor if recurs or has worsening symptoms or change recurrent change of symptoms return to the emergency room. Medical Records I reviewed the patient's medical records. Lab Data I reviewed the patient's lab results. Radiology Impressions Chest X-Ray 12/06/22 05:51 IMPRESSION: Lungs are well aerated without a focal area of consolidation. Discharge Plan Discharge Patient Disposition: Home Clinical Impression: Allergic reaction Condition: Stable Prescriptions: New Medrol (Shekhar) 4 mg tablets,dose pack See Rx Instructions .ROUTE .COMPLEX Qty: 21 0RF Rx Instructions: orally per package directions No Action pantoprazole [Protonix] 40 mg tablet,delayed release (DR/EC) 40 mg PO DAILY sumatriptan succinate 100 mg tablet 100 mg PO Q2H PRN (Reason: Migraine Headache) Rx Instructions: do not exceed 2 doses per 24 hrs ascorbic acid (vitamin C) 1,000 mg tablet 1 g PO DAILY tamsulosin 0.4 mg capsule 0.4 mg PO BEDTIME prednisone 5 mg tablet 10 mg PO .as directed PRN (Reason: Rheumatoid Arthritis ) 30 Days Qty: 30 1RF Rx Instructions: use 10 mg daily for 3-4 days for arthritis flare up diclofenac sodium 75 mg tablet,delayed release (DR/EC) 75 mg PO BID Qty: 30 0RF Rx Instructions: take 1 tab twice daily for 5 days. Orencia 125 mg/mL syringe 125 mg SUBCUT .Q7days Qty: 4 3RF Rx Instructions: takes on wednesdays ondansetron HCl 8 mg tablet 8 mg PO Q8H PRN (Reason: nausea and vomiting) Qty: 30 2RF Eliquis 5 mg tablet 2.5 mg PO BID Qty: 60 2RF multivitamin Tablet 1 tab PO DAILY cyanocobalamin (vitamin B-12) [Vitamin B-12] 1,000 mcg Tablet 1,000 mcg PO DAILY magnesium 250 mg Tablet 250 mg PO DAILY Vitamin D3 25 mcg (1,000 unit) capsule 50 mcg PO DAILY iron 325 mg (65 mg iron) tablet 650 mg PO DAILY tramadol-acetaminophen 37.5-325 mg tablet 2 tab PO Q4-5H PRN (Reason: pain) 5 Days Qty: 30 1RF Discharge Orders: Discharge ED (Routine); Ordered 12/06/22 Ordered By: Cheko Whitt Referrals: Katie Fu PA [Primary Care Provider] - Discharge Diet: Usual diet Discharge Activity: Increase activity as tolerated Patient Instructions: Opioid Safety, Pain Management Activity Restrictions/Additional Instructions: Start prednisone taper today. You can use Benadryl 50 mg every 6 hours as needed. Follow-up with your doctor as needed return for worsening problems. 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
[2022-12-06] MEDS: ondansetron 2 mg/ML SDV 2 mL 4 MG IVP (06:49)
[2022-12-06 06:56] VITALS: BP 122/76; PULSE 70; RESP 15; O2SAT 94
== END 2022-12-06 06:57 | disposition home or self-care (01) ==
PROVIDERS: Emergency Provider Family Medicine; PCP Physician Assistant
DX: T78.40XA Allergy, unspecified, initial encounter (principal)
CPT/HCPCS: 71045; 93005; 96374; 96375; 99284; J1100; J1200; J2405; J3490

== ENCOUNTER 2023-01-28 11:26 | Oncology outpatient (recurring) (ONCR) | payer OTHER, SELFPAY ==
[2023-01-28 11:52] VITALS: BP 148/89; PULSE 79; RESP 18; TEMP 36.8; O2SAT 98; BMI 34.7
[2023-01-28 12:06] LABS: Basophils % 0.3 %; Eosinophils % 1.2 %; Hematocrit 43.6 % (42.0-52.0); Hemoglobin 14.3 g/dL (11.7-16.6); Lymphocytes # 0.6 10^3/uL (0.8-4.8); Lymphocytes % 18.7 %; Mean Corpuscular HGB Conc 32.8 g/dL (30.0-36.0); Mean Corpuscular Volume 91.4 fl (80-94); Monocytes # 0.2 10^3/uL (0.2-0.9); Monocytes % 6.7 %; Neutrophils # 2.49 10^3/uL (1.8-7.7); Neutrophils % 72.8 %; Nucleated Red Blood Cells % 0 %; Platelet Count 192 10^3/cmm (130-400); Red Blood Count 4.77 10^6/uL (4.1-5.3); Red Cell Distribution Width 13.9 % (12.1-15.1); White Blood Count 3.4 10^3/uL (4.0-10.0)
[2023-01-28 12:24] LABS: Alanine Aminotransferase 14 U/L (0-41); Alkaline Phosphatase 73 U/L (40-130); Anion Gap 13.3 (5-19); Aspartate Amino Transferase 19 U/L (0-40); Blood Urea Nitrogen 15 mg/dL (8-23); Calcium 9.3 mg/dL (8.5-10.5); Carbon Dioxide 27 mmol/L (22-29); Chloride 103 mmol/L (98-107); Ferritin 44 ng/mL (30-400); Globulin 2.8 g/dL (1.3-4.6); Glomerular Filtration Rate 85.2 mL/min (90-130); Glucose 126 mg/dL (65-115); Iron 73 ug/dL (59-158); Osmolality Calculated 290 mOsm/kg (285-295); Percent Saturation 28.2 % (20-50); Potassium 4.3 mmol/L (3.5-5.1); Sodium 139 mmol/L (136-145); Total Bilirubin 0.4 mg/dL (0.15-1.2); Total Iron Binding Capacity 258 mcg/dl; Total Protein 6.8 g/dL (6.6-8.7); Unsaturated Iron Binding 185 ug/dL (112-347)
== END 2023-02-13 23:59 | disposition home or self-care (01) ==
PROVIDERS: PCP Physician Assistant; Visit Provider Internal Medicine Medical Oncology
DX: D64.9 Anemia, unspecified (principal)
CPT/HCPCS: 36415; 80053; 82728; 83540; 83550; 85025

== ENCOUNTER → 2023-02-24 10:35 | Outpatient (BNVA) | payer OTHER, SELFPAY | PROVIDERS: PCP Physician Assistant; Referring Provider Nurse Practitioner Family; Visit Provider Internal Medicine Pulmonary Disease | DX: J30.2 Other seasonal allergic rhinitis (principal) | CPT/HCPCS: 36415; 82785; 86003 ==

== ENCOUNTER 2023-03-14 07:11 | Outpatient (CLI) | payer OTHER, SELFPAY ==
--- NOTE | 2023-03-14 07:30 | USCV_ITS ---
Vicente Galarza Age: 62 Gender: M : 1960 Exam Date: 03/14/2023 07:51 Ordering Phys: Homer Monteiro MD Technologist: SIS Exam Location: [facility] [place] Indication: cp, pulmonary pressures BP: 135 / 80 HR: 70 Rhythm: Sinus Technical Quality: Adequate MEASUREMENTS (Male / Female) Normal Values 2D ECHO LV Chamber Size 5.8 cm RV Chamber Size 4.3 cm LVOT Diameter 2.4 cm LV Ejection Fraction MOD 2C 62.2 % LV Ejection Fraction 2C AL 61.7 % LA Diameter 4.2 cm LA Width 4.6 cm LA Height 6.0 cm RA Width 3.7 cm RA Height 5.0 cm Aorta at Sinotubular Diameter 3.2 cm IVC Diameter 1.8 cm M-MODE Aortic Annulus Diameter 3.9 cm LA Ao Ratio MM 1.3 MV E Point Septal Separation 1.3 cm DOPPLER AV Peak Velocity 141.0 cm/s LVOT Peak Velocity 141.0 cm/s AV Area Cont Eq vti 4.9 cm squared AV Area Cont Eq pk 4.6 cm squared MV Area PHT 2.7 cm squared Mitral E to A Ratio 0.8 MV E' Velocity 39.5 cm/s Mitral E to MV E' Ratio 4.9 Mitral E to LV E' Lateral Ratio 4.7 Mitral E to LV E' Septal Ratio 5.0 TR Peak Velocity 112.0 cm/s TR Peak Gradient 5.0 mmHg TV Peak E Velocity 63.0 cm/s Right Atrial Pressure 3.0 mmHg Pulmonary Artery Systolic Pressu 8.0 mmHg PV Peak Velocity 125.0 cm/s FINDINGS Left Ventricle Left ventricle is normal in size. LV systolic function is normal with EF of 55-60%. No regional wall motion abnormalities are seen. Grade 1 diastolic dysfunction Right Ventricle Normal in size and function Right Atrium Normal in size Left Atrium Dilated Mitral Valve Structurally normal mitral valve. Mild mitral regurgitation. Aortic Valve Structurally normal aortic valve. No significant stenosis or regurgitation. Tricuspid Valve Mild tricuspid regurgitation. Insufficient TR jet to calculate RVSP Pulmonic Valve Not well visualized Pericardium Normal Aorta Normal in size IVC Appears to be normal CONCLUSIONS LV systolic function is normal with EF of 55-60% Grade 1 diastolic dysfunction Left atrial dilation Mild mitral regurgitation Mild tricuspid regurgitation No comparison studies are available Jayson Hansen MD (Electronically Signed) Final Date: 18 March 2023 09:56 S
== END 2023-03-14 07:12 | disposition home or self-care (01) ==
PROVIDERS: PCP Physician Assistant; Visit Provider Internal Medicine Pulmonary Disease
DX: R06.02 Shortness of breath (principal); I34.0 Nonrheumatic mitral (valve) insufficiency; I07.1 Rheumatic tricuspid insufficiency
CPT/HCPCS: 93306

== ENCOUNTER 2023-05-07 07:11 | Outpatient (CLI) | payer OTHER, SELFPAY | END 2023-05-07 07:12 | disposition home or self-care (01) | LOC: RT 07:11 | PROVIDERS: PCP Physician Assistant; Visit Provider Internal Medicine Pulmonary Disease | DX: R06.02 Shortness of breath (principal) | CPT/HCPCS: 94010; 94618; 94726; 94729 ==

== ENCOUNTER 2023-05-12 09:00 | Oncology outpatient (recurring) (ONCR) | payer OTHER, SELFPAY ==
[2023-04-29 08:41] VITALS: BP 117/71; PULSE 83; RESP 16; TEMP 36.5; O2SAT 96
[2023-04-29 08:57] LABS: Basophils % 0.6 %; Eosinophils % 1.2 %; Hematocrit 42.3 % (37-53); Lymphocytes # 0.5 10^3/uL (0.8-4.8); Lymphocytes % 16.7 %; Mean Corpuscular Hemoglobin 29.4 pg (27-33); Mean Corpuscular Volume 95.1 fl (82-101); Mean Platelet Volume 9.2 fL (7.4-10.4); Monocytes # 0.2 10^3/uL (0.2-0.9); Monocytes % 6.5 %; Neutrophils # 2.42 10^3/uL (1.8-7.7); Nucleated Red Blood Cells % 0 %; Platelet Count 204 10^3/cmm (157-399); Red Blood Count 4.45 10^6/uL (3.85-5.65); Red Cell Distribution Width 13.7 % (12.1-15.1); White Blood Count 3.23 10^3/uL (3.29-11.43)
[2023-04-29 09:18] LABS: Alanine Aminotransferase 15 U/L (0-41); Albumin Level 4.1 g/dL (3.5-5.2); Alkaline Phosphatase 70 U/L (40-130); Anion Gap 13.6 (5-19); Aspartate Amino Transferase 19 U/L (0-40); Blood Urea Nitrogen 18 mg/dL (8-23); Calcium 9.1 mg/dL (8.5-10.5); Carbon Dioxide 27 mmol/L (22-29); Chloride 107 mmol/L (98-107); Ferritin 62 ng/mL (30-400); Globulin 2.7 g/dL (1.3-4.6); Glomerular Filtration Rate 75.5 mL/min (90-130); Glucose 99 mg/dL (65-115); Iron 31 ug/dL (59-158); Osmolality Calculated 298 mOsm/kg (285-295); Percent Saturation 10.9 % (20-50); Potassium 4.6 mmol/L (3.5-5.1); Sodium 143 mmol/L (136-145); Total Bilirubin 0.3 mg/dL (0.15-1.2); Total Iron Binding Capacity 282 mcg/dl; Total Protein 6.8 g/dL (6.6-8.7); Unsaturated Iron Binding 251 ug/dL (112-347)
[2023-05-12 09:18] VITALS: BP 136/77; PULSE 79; RESP 17; TEMP 36.5; O2SAT 95
[2023-05-12] MEDS: sodium chloride 0.9% 250 ML 50 ML IV (09:53)
[2023-05-12] MEDS: ferumoxytol (NON-ESRD) 510 MG in sodium chloride 0.9% (100 ml) 100 ML 351 MG IV (10:00)
[2023-05-12 10:40] VITALS: BP 133/83; PULSE 67; RESP 17; TEMP 36.3; O2SAT 96
== END 2023-05-15 23:59 | disposition home or self-care (01) ==
PROVIDERS: Nurse Practitioner Family; PCP Physician Assistant; Visit Provider Radiology Radiation Oncology
DX: D50.0 Iron deficiency anemia secondary to blood loss (chronic) (principal)
CPT/HCPCS: 36415; 80053; 82728; 83540; 83550; 85025; 96365; J7050; Q0138

== ENCOUNTER 2023-05-19 08:01 | Oncology outpatient (recurring) (ONCR) | payer OTHER, SELFPAY ==
[2023-05-19 08:51] VITALS: BP 155/92; PULSE 77; RESP 18; TEMP 36.4; O2SAT 98
[2023-05-19] MEDS: ferumoxytol (NON-ESRD) 510 MG in sodium chloride 0.9% (100 ml) 100 ML 351 MG IV (09:24)
[2023-05-19 09:49] VITALS: BP 167/94; PULSE 74; RESP 18; TEMP 36.7; O2SAT 96
== END 2023-06-15 23:59 | disposition home or self-care (01) ==
LOC: ONCMED 08:02
PROVIDERS: PCP Physician Assistant; Visit Provider Radiology Radiation Oncology
DX: D50.0 Iron deficiency anemia secondary to blood loss (chronic) (principal)
CPT/HCPCS: 96365; Q0138

== ENCOUNTER 2023-05-21 12:00 | Outpatient (CLI) | payer OTHER, SELFPAY | END 2023-05-21 12:01 | disposition home or self-care (01) | LOC: SLEEP 05-22 12:36 | PROVIDERS: PCP Physician Assistant; Visit Provider Internal Medicine Pulmonary Disease | DX: R40.0 Somnolence (principal) | CPT/HCPCS: G0399 ==

== ENCOUNTER 2023-08-11 14:00 | Oncology outpatient (recurring) (ONCR) | payer OTHER, SELFPAY ==
[2023-08-01 08:25] VITALS: BP 133/82; PULSE 76; RESP 18; TEMP 36.6; O2SAT 92
[2023-08-01 08:29] VITALS: BMI 36.2
[2023-08-01 08:32] LABS: Basophils % 0.5 %; Eosinophils # 0.1 10^3/uL (0.0-0.8); Eosinophils % 2.3 %; Hematocrit 37.3 % (37-53); Lymphocytes # 0.5 10^3/uL (0.8-4.8); Mean Corpuscular HGB Conc 31.9 g/dL (30-55); Mean Corpuscular Hemoglobin 30.7 pg (27-33); Mean Corpuscular Volume 96.1 fl (82-101); Mean Platelet Volume 9.1 fL (7.4-10.4); Monocytes # 0.2 10^3/uL (0.2-0.9); Monocytes % 6.8 %; Neutrophils # 1.46 10^3/uL (1.8-7.7); Neutrophils % 65.9 %; Nucleated Red Blood Cells % 0 %; Platelet Count 224 10^3/cmm (157-399); Red Blood Count 3.88 10^6/uL (3.85-5.65); White Blood Count 2.21 10^3/uL (3.29-11.43)
[2023-08-01 08:49] LABS: Alanine Aminotransferase 13 U/L (0-41); Albumin Level 3.8 g/dL (3.5-5.2); Alkaline Phosphatase 70 U/L (40-130); Anion Gap 12.9 (5-19); Aspartate Amino Transferase 19 U/L (0-40); Blood Urea Nitrogen 16 mg/dL (8-23); Calcium 8.1 mg/dL (8.5-10.5); Carbon Dioxide 24 mmol/L (22-29); Chloride 105 mmol/L (98-107); Creatinine Clr Calc Pharmacy 136.3208; Ferritin 46 ng/mL (30-400); Globulin 2.7 g/dL (1.3-4.6); Glomerular Filtration Rate 97.3 mL/min (90-130); Glucose 165 mg/dL (65-115); Iron 28 ug/dL (59-158); Osmolality Calculated 291 mOsm/kg (285-295); Percent Saturation 11.2 % (20-50); Potassium 3.9 mmol/L (3.5-5.1); Sodium 138 mmol/L (136-145); Total Bilirubin 0.2 mg/dL (0.15-1.2); Total Iron Binding Capacity 248 mcg/dl; Total Protein 6.5 g/dL (6.6-8.7); Unsaturated Iron Binding 220 ug/dL (112-347)
[2023-08-04 14:38] VITALS: BP 116/77; PULSE 72; RESP 16; TEMP 36.9; O2SAT 98
[2023-08-04] MEDS: ferumoxytol (NON-ESRD) 510 MG in sodium chloride 0.9% (100 ml) 100 ML 351 MG IV (14:39)
[2023-08-04 15:15] VITALS: BP 119/83; PULSE 68; RESP 16; O2SAT 97
[2023-08-11 13:50] VITALS: BP 136/83; PULSE 78; RESP 16; TEMP 36.4; O2SAT 96
[2023-08-11] MEDS: ferumoxytol (NON-ESRD) 510 MG in sodium chloride 0.9% (100 ml) 100 ML 351 MG IV (14:21)
== END 2023-08-14 23:59 | disposition home or self-care (01) ==
PROVIDERS: Nurse Practitioner Family; PCP Physician Assistant; Visit Provider Radiology Radiation Oncology
DX: D50.0 Iron deficiency anemia secondary to blood loss (chronic) (principal); Z53.9 Procedure and treatment not carried out, unspecified reason
CPT/HCPCS: 36415; 80053; 82728; 83540; 83550; 85025; 96365; Q0138

== ENCOUNTER → 2023-08-18 10:17 | Outpatient (BNVA) | payer OTHER, SELFPAY | PROVIDERS: PCP Physician Assistant; Visit Provider Podiatrist Foot & Ankle Surgery | DX: M72.2 Plantar fascial fibromatosis | CPT/HCPCS: 73630 ==

== ENCOUNTER 2023-09-04 11:31 | Outpatient (CLI) | payer OTHER, SELFPAY ==
[2023-09-04 11:54] LABS: Basophils % 0.3 %; Eosinophils % 1.2 %; Hematocrit 41.2 % (37-53); Lymphocytes # 0.6 10^3/uL (0.8-4.8); Lymphocytes % 18.3 %; Mean Corpuscular Hemoglobin 31.2 pg (27-33); Mean Corpuscular Volume 97.4 fl (82-101); Mean Platelet Volume 8.9 fL (7.4-10.4); Monocytes # 0.2 10^3/uL (0.2-0.9); Monocytes % 7.1 %; Neutrophils # 2.36 10^3/uL (1.8-7.7); Neutrophils % 73.1 %; Nucleated Red Blood Cells % 0 %; Platelet Count 203 10^3/cmm (157-399); Red Blood Count 4.23 10^6/uL (3.85-5.65); White Blood Count 3.23 10^3/uL (3.29-11.43)
== END 2023-09-04 11:32 | disposition home or self-care (01) ==
LOC: LAB 11:32
PROVIDERS: PCP Physician Assistant; Visit Provider Internal Medicine Rheumatology
DX: Z79.899 Other long term (current) drug therapy (principal); M06.00 Rheumatoid arthritis without rheumatoid factor, unspecified site
CPT/HCPCS: 36415; 85025

== ENCOUNTER 2023-09-17 20:00 | Outpatient (CLI) | payer OTHER, SELFPAY | END 2023-09-17 20:01 | disposition home or self-care (01) | LOC: SLEEP 09-18 05:37 | PROVIDERS: PCP Physician Assistant; Visit Provider Internal Medicine Pulmonary Disease | DX: G47.33 Obstructive sleep apnea (adult) (pediatric) (principal) | CPT/HCPCS: 95811 ==

== ENCOUNTER 2023-12-02 09:00 | Oncology outpatient (recurring) (ONCR) | payer OTHER, SELFPAY ==
[2023-12-02 09:25] LABS: Basophils % 0.9 %; Eosinophils % 1.4 %; Hematocrit 41.5 % (37-53); Lymphocytes # 0.5 10^3/uL (0.8-4.8); Lymphocytes % 23.7 %; Mean Corpuscular HGB Conc 31.6 g/dL (30-55); Mean Corpuscular Hemoglobin 30.2 pg (27-33); Mean Corpuscular Volume 95.6 fl (82-101); Mean Platelet Volume 9.3 fL (7.4-10.4); Monocytes # 0.2 10^3/uL (0.2-0.9); Monocytes % 8.2 %; Neutrophils # 1.44 10^3/uL (1.8-7.7); Neutrophils % 65.8 %; Nucleated Red Blood Cells % 0 %; Platelet Count 193 10^3/cmm (157-399); Red Blood Count 4.34 10^6/uL (3.85-5.65); Red Cell Distribution Width 12.8 % (12.1-15.1); White Blood Count 2.19 10^3/uL (3.29-11.43)
[2023-12-02 09:43] LABS: Alanine Aminotransferase 16 U/L (0-41); Alkaline Phosphatase 77 U/L (40-130); Anion Gap 13.5 (5-19); Aspartate Amino Transferase 22 U/L (0-40); Blood Urea Nitrogen 15 mg/dL (8-23); Calcium 8.7 mg/dL (8.5-10.5); Carbon Dioxide 25 mmol/L (22-29); Chloride 104 mmol/L (98-107); Ferritin 63 ng/mL (30-400); Glomerular Filtration Rate 97.3 mL/min (90-130); Glucose 160 mg/dL (65-115); Iron 29 ug/dL (59-158); Osmolality Calculated 290 mOsm/kg (285-295); Percent Saturation 10.6 % (20-50); Potassium 4.5 mmol/L (3.5-5.1); Sodium 138 mmol/L (136-145); Total Bilirubin 0.2 mg/dL (0.15-1.2); Total Iron Binding Capacity 272 mcg/dl; Unsaturated Iron Binding 243 ug/dL (112-347)
== END 2023-12-14 23:59 | disposition home or self-care (01) ==
PROVIDERS: Internal Medicine Medical Oncology; PCP Physician Assistant; Visit Provider Radiology Radiation Oncology
DX: D50.0 Iron deficiency anemia secondary to blood loss (chronic); Z53.9 Procedure and treatment not carried out, unspecified reason
CPT/HCPCS: 36415; 80053; 82728; 83540; 83550; 85025

== ENCOUNTER 2024-03-03 09:43 | Oncology outpatient (recurring) (ONCR) | payer OTHER, SELFPAY ==
[2024-03-03 10:02] LABS: Basophils % 0.6 %; Eosinophils % 1.2 %; Hematocrit 39.3 % (37-53); Lymphocytes # 0.6 10^3/uL (0.8-4.8); Lymphocytes % 18.3 %; Mean Corpuscular HGB Conc 31.3 g/dL (30-55); Mean Corpuscular Hemoglobin 30.3 pg (27-33); Mean Corpuscular Volume 96.8 fl (82-101); Mean Platelet Volume 9.3 fL (7.4-10.4); Monocytes # 0.3 10^3/uL (0.2-0.9); Neutrophils # 2.27 10^3/uL (1.8-7.7); Neutrophils % 70.6 %; Nucleated Red Blood Cells % 0 %; Platelet Count 217 10^3/cmm (157-399); Red Blood Count 4.06 10^6/uL (3.85-5.65); Red Cell Distribution Width 13.9 % (12.1-15.1); White Blood Count 3.22 10^3/uL (3.29-11.43)
[2024-03-03 10:19] LABS: Alanine Aminotransferase 14 U/L (0-41); Albumin Level 4.1 g/dL (3.5-5.2); Alkaline Phosphatase 83 U/L (40-130); Aspartate Amino Transferase 17 U/L (0-40); Blood Urea Nitrogen 14 mg/dL (8-23); Calcium 8.9 mg/dL (8.5-10.5); Carbon Dioxide 27 mmol/L (22-29); Chloride 105 mmol/L (98-107); Ferritin 24 ng/mL (30-400); Globulin 2.6 g/dL (1.3-4.6); Glucose 122 mg/dL (65-115); Iron 35 ug/dL (59-158); Osmolality Calculated 294 mOsm/kg (285-295); Percent Saturation 12.2 % (20-50); Sodium 141 mmol/L (136-145); Total Bilirubin 0.2 mg/dL (0.15-1.2); Total Iron Binding Capacity 286 mcg/dl; Total Protein 6.7 g/dL (6.6-8.7); Unsaturated Iron Binding 251 ug/dL (112-347)
== END 2024-03-15 23:59 | disposition home or self-care (01) ==
PROVIDERS: Internal Medicine Medical Oncology; PCP Physician Assistant; Visit Provider Radiology Radiation Oncology
DX: D50.0 Iron deficiency anemia secondary to blood loss (chronic) (principal)
CPT/HCPCS: 36415; 80053; 82728; 83540; 83550; 85025

== ENCOUNTER 2024-06-14 09:00 | Oncology outpatient (recurring) (ONCR) | payer OTHER, SELFPAY ==
[2024-06-02 09:51] LABS: Basophils % 0.6 %; Eosinophils # 0.1 10^3/uL (0.0-0.8); Eosinophils % 1.5 %; Hematocrit 39.1 % (37-53); Lymphocytes # 0.6 10^3/uL (0.8-4.8); Lymphocytes % 18.9 %; Mean Corpuscular HGB Conc 30.2 g/dL (30-55); Mean Corpuscular Volume 92.7 fl (82-101); Mean Platelet Volume 9.6 fL (7.4-10.4); Monocytes # 0.2 10^3/uL (0.2-0.9); Monocytes % 6.5 %; Neutrophils # 2.45 10^3/uL (1.8-7.7); Neutrophils % 72.2 %; Nucleated Red Blood Cells % 0 %; Platelet Count 238 10^3/cmm (157-399); Red Blood Count 4.22 10^6/uL (3.85-5.65); White Blood Count 3.39 10^3/uL (3.29-11.43)
[2024-06-02 10:06] LABS: Alanine Aminotransferase 11 U/L (0-41); Alkaline Phosphatase 72 U/L (40-130); Aspartate Amino Transferase 15 U/L (0-40); Blood Urea Nitrogen 12 mg/dL (8-23); Calcium 9.1 mg/dL (8.5-10.5); Carbon Dioxide 24 mmol/L (22-29); Chloride 104 mmol/L (98-107); Ferritin 24 ng/mL (30-400); Globulin 2.7 g/dL (1.3-4.6); Glomerular Filtration Rate 97.3 mL/min (90-130); Glucose 167 mg/dL (65-115); Iron 29 ug/dL (59-158); Osmolality Calculated 286 mOsm/kg (285-295); Percent Saturation 9.5 % (20-50); Sodium 136 mmol/L (136-145); Total Bilirubin 0.2 mg/dL (0.15-1.2); Total Iron Binding Capacity 305 mcg/dl; Total Protein 6.7 g/dL (6.6-8.7); Unsaturated Iron Binding 276 ug/dL (112-347)
[2024-06-14] MEDS: IRON SUCROSE IV (11:16)
[2024-06-14] MEDS: SODIUM CHLORIDE 0.9% IV (11:16)
== END 2024-06-15 23:59 | disposition home or self-care (01) ==
PROVIDERS: Internal Medicine Medical Oncology; PCP Physician Assistant; Visit Provider Radiology Radiation Oncology
DX: Z53.9 Procedure and treatment not carried out, unspecified reason (principal); Z79.899 Other long term (current) drug therapy; D50.0 Iron deficiency anemia secondary to blood loss (chronic)
CPT/HCPCS: 36415; 80053; 82728; 83540; 83550; 85025; 96365; J1756

== ENCOUNTER 2024-07-12 08:00 | Oncology outpatient (recurring) (ONCR) | payer OTHER, SELFPAY ==
[2024-06-21 08:25] VITALS: BP 142/70; PULSE 88; RESP 17; TEMP 37.1; O2SAT 94
[2024-06-21] MEDS: IRON SUCROSE IV (08:36)
[2024-06-21] MEDS: SODIUM CHLORIDE 0.9% IV (08:36)
[2024-06-28 08:20] VITALS: BP 140/68; PULSE 77; RESP 17; TEMP 36.9; O2SAT 94
[2024-06-28] MEDS: SODIUM CHLORIDE 0.9% IV (08:27)
[2024-06-28] MEDS: IRON SUCROSE IV (08:27)
[2024-06-28 09:05] VITALS: BP 120/71; PULSE 78; RESP 17; TEMP 36.6; O2SAT 95
[2024-07-05 08:45] VITALS: BP 134/83; PULSE 70; RESP 18; TEMP 36.4; O2SAT 97
[2024-07-05] MEDS: sodium chloride 0.9% 250 ML 75 ML IV (08:58)
[2024-07-05] MEDS: SODIUM CHLORIDE 0.9% IV (08:58)
[2024-07-05] MEDS: IRON SUCROSE IV (08:58)
[2024-07-05 09:29] VITALS: BP 138/78; PULSE 67; RESP 18; TEMP 36.4; O2SAT 96
[2024-07-12 08:09] VITALS: BP 134/78; PULSE 77; RESP 17; TEMP 36.6; O2SAT 99
[2024-07-12] MEDS: SODIUM CHLORIDE 0.9% IV (08:22)
[2024-07-12] MEDS: IRON SUCROSE IV (08:22)
[2024-07-12 08:53] VITALS: BP 138/76; PULSE 75; RESP 17; TEMP 36.4; O2SAT 95
== END 2024-07-16 23:59 | disposition home or self-care (01) ==
PROVIDERS: PCP Physician Assistant; Visit Provider Radiology Radiation Oncology
DX: D50.0 Iron deficiency anemia secondary to blood loss (chronic); Z79.899 Other long term (current) drug therapy; Z53.9 Procedure and treatment not carried out, unspecified reason
CPT/HCPCS: 96365; J1756; J7050

== ENCOUNTER 2024-09-01 11:03 | Oncology outpatient (recurring) (ONCR) | payer MEDICARE, SELFPAY ==
[2024-09-01 11:42] LABS: Basophils % 0.5 %; Eosinophils # 0.1 10^3/uL (0.0-0.8); Eosinophils % 4.5 %; Hematocrit 26.8 % (37-53); Lymphocytes # 0.4 10^3/uL (0.8-4.8); Mean Corpuscular Hemoglobin 27.9 pg (27-33); Mean Corpuscular Volume 99.6 fl (82-101); Mean Platelet Volume 9.7 fL (7.4-10.4); Monocytes # 0.2 10^3/uL (0.2-0.9); Neutrophils # 1.42 10^3/uL (1.8-7.7); Neutrophils % 64.5 %; Nucleated Red Blood Cells % 0 %; Platelet Count 232 10^3/cmm (157-399); Red Blood Count 2.69 10^6/uL (3.85-5.65); Red Cell Distribution Width 15.5 % (12.1-15.1)
[2024-09-01 11:43] LABS: Reticulocyte % 6.1 % (0.5-2.0)
[2024-09-01 12:01] LABS: Alanine Aminotransferase 19 U/L (0-41); Albumin Level 3.8 g/dL (3.5-5.2); Alkaline Phosphatase 63 U/L (40-130); Anion Gap 12.5 (5-19); Aspartate Amino Transferase 29 U/L (0-40); Blood Urea Nitrogen 17 mg/dL (8-23); Calcium 8.3 mg/dL (8.5-10.5); Carbon Dioxide 25 mmol/L (22-29); Chloride 107 mmol/L (98-107); Ferritin 38 ng/mL (30-400); Globulin 2.1 g/dL (1.3-4.6); Glucose 107 mg/dL (65-115); Iron 152 ug/dL (59-158); Lactate Dehydrogenase 141 U/L (135-225); Osmolality Calculated 292 mOsm/kg (285-295); Percent Saturation 56.5 % (20-50); Potassium 4.5 mmol/L (3.5-5.1); Sodium 140 mmol/L (136-145); Total Bilirubin 0.2 mg/dL (0.15-1.2); Total Iron Binding Capacity 269 mcg/dl; Total Protein 5.9 g/dL (6.6-8.7); Unsaturated Iron Binding 117 ug/dL (112-347)
== END 2024-09-13 23:59 | disposition home or self-care (01) ==
PROVIDERS: PCP Physician Assistant; Visit Provider Internal Medicine
DX: D50.0 Iron deficiency anemia secondary to blood loss (chronic) (principal); D70.9 Neutropenia, unspecified; Z79.899 Other long term (current) drug therapy; R04.0 Epistaxis; M06.00 Rheumatoid arthritis without rheumatoid factor, unspecified site; Z86.718 Personal history of other venous thrombosis and embolism; Z79.01 Long term (current) use of anticoagulants
CPT/HCPCS: 36415; 80053; 82728; 83010; 83540; 83550; 83615; 85025; 85045; 99213

== ENCOUNTER 2024-10-01 08:56 | Outpatient (CLI) | payer MEDICARE, SELFPAY ==
[2024-10-01 09:03] VITALS: BMI 34.9
--- NOTE | 2024-10-01 09:04 | ECG_ITS ---
NextInput Test Date: 2024-10-01 Pat Name: Vicente Galarza Department: Room: Gender: Male Student Services Dean: : 1960 Requested By: Katie Naidu Order Number: [id number] Hui MD: Amy Jones M.D. Interpretive Statements Lung unchanged pre/post procedure; Intraprocedure shortess of breath; Symptoms resoled by discharge PROCEDURE: At the baseline, the EKG revealed normal sinus rhythm with normal ST Ts. The baseline heart was 60 bpm with a blood pressue of 139/81 mm of Hg Lexiscan was infused over a period of 20 seconds. A total of 0.4 milligrams of Lexiscan was infused. The stress phase was continued for a total of 5 minutes. Heart rate at the end of the stress phase was 71 bpm with a blood pressure 115/67 mm of Hg. The EKG at the peak infusion revealed no significant changes. Sestamibi was injected 20 seconds after the Lexiscan infusion. Heart rate at the end of the recovery phase was 69 bpm with a blood pressure of 116/72 mm of Hg. CONCLUSION: 1. No significant EKG changes with the LexiScan infusion 2. No LexiScan induced chest pain or cardiac arrhythmia 3. Normal blood pressure and heart rate response 4. Sestamibi/sestamibi perfusion scan pending; see separate report. Electronically Signed On 10-03-2024 20:28:43 CDT by Amy Jones M.D. [email or web address]
--- NOTE | 2024-10-01 09:06 | NMCV_ITS ---
NM rustam perf SPECT r/s* [id number] Vicente Galarza Age: 64 Gender: M : 1960 Exam Date: 10/01/2024 10:12 Ordering Phys: Katie Fu Technologist: RAFAEL Acosta Exam Location: [facility] Indications: cp STRESS TEST Please see separate stress test report in [facility] for full findings IMAGE PROTOCOL Rest/Stress 1 Lexiscan Day Radiopharmaceutical Dose (mCi) Administration Site Administered by Rest: Tc-99m 10.6 IV Nikki Aparicio, TELECOMMUNICATIONS OPERATOR Sestamibi Stress:Tc-99m 32.8 IV Nikki Alessandra, TELECOMMUNICATIONS OPERATOR Sestamibi Rest: 01-Oct-2024 60 Discovery 630 Stress: 01-Oct-2024 30 Discovery 630 0.4mg Lexiscan. Supine position only as patient was unable to lay prone. SPECT RESULTS Technical Quality: Good Raw Data Analysis: Normal Image Corrections: No attenuation or motion correction applied Summed Stress Score: 0 Summed Rest Score: 0 Summed Difference Score: 0 PERFUSION FINDINGS Medium sized area of moderate to severe reversibility noted in the basal to distal inferior inferolateral wall suggestive of ischemia in RCA territory. Small area of fixed perfusion defect noted in the mid anterior wall suggestive of old myocardial infarction versus scarring however in the absence of wall motion abnormality and prone images it can represent artifact FUNCTIONAL RESULTS (calculated via Gated SPECT) Stress Image LV EF (%): 51 Stress EDV (mL):191 TID: 1.11 Stress ESV (mL):93 FUNCTIONAL FINDINGS: There is normal left ventricular systolic function. IMPRESSIONS Medium sized area of moderate to severe reversibility noted in the basal to distal inferior inferolateral wall suggestive of ischemia in RCA territory. Small area of fixed perfusion defect noted in the mid anterior wall suggestive of old myocardial infarction versus scarring however in the absence of wall motion abnormality and prone images it can represent artifact. Inferior wall reversibility suggestive of ischemia in RCA territory. This study is positive for ischemia. Kayley Downing MD (Electronically Signed) Final Date: 05 October 2024 20:04 S
[2024-10-01] MEDS: regadenoson 0.4 Mg/5 ml Syringe IVP (10:41)
[2024-10-01 11:03] VITALS: BP 117/62; PULSE 71
== END 2024-10-01 08:57 | disposition home or self-care (01) ==
PROVIDERS: Family Provider Internal Medicine; PCP Physician Assistant; Visit Provider Physician Assistant
DX: R07.9 Chest pain, unspecified (principal); R93.1 Abnormal findings on diagnostic imaging of heart and coronary circulation
CPT/HCPCS: 36415; 78452; 93017; 96374; A9500; J2785

== ENCOUNTER 2024-10-08 08:00 | Oncology outpatient (recurring) (ONCR) | payer MEDICARE, SELFPAY ==
[2024-09-29 10:34] LABS: Eosinophils # 0.1 10^3/uL (0.0-0.8); Eosinophils % 3.1 %; Hematocrit 31.7 % (37-53); Lymphocytes # 0.3 10^3/uL (0.8-4.8); Lymphocytes % 16.1 %; Mean Corpuscular HGB Conc 28.4 g/dL (30-55); Mean Corpuscular Hemoglobin 27.3 pg (27-33); Mean Corpuscular Volume 96.1 fl (82-101); Monocytes # 0.1 10^3/uL (0.2-0.9); Monocytes % 6.7 %; Neutrophils # 1.41 10^3/uL (1.8-7.7); Neutrophils % 73.1 %; Nucleated Red Blood Cells % 0 %; Platelet Count 208 10^3/cmm (157-399); Red Cell Distribution Width 13.9 % (12.1-15.1); Reticulocyte % 3.1 % (0.5-2.0); White Blood Count 1.93 10^3/uL (3.29-11.43)
[2024-09-29 10:38] LABS: Erythrocyte Sedimentation Rate 5 mm/hr (0-10)
[2024-09-29 10:59] LABS: Alanine Aminotransferase 13 U/L (0-41); Albumin Level 3.7 g/dL (3.5-5.2); Alkaline Phosphatase 63 U/L (40-130); Anion Gap 15.2 (5-19); Aspartate Amino Transferase 17 U/L (0-40); Blood Urea Nitrogen 18 mg/dL (8-23); C Reactive Protein 3.4 mg/L (0.0-4.9); Calcium 8.5 mg/dL (8.5-10.5); Carbon Dioxide 22 mmol/L (22-29); Chloride 107 mmol/L (98-107); Ferritin 25 ng/mL (30-400); Globulin 2.3 g/dL (1.3-4.6); Glomerular Filtration Rate 113.2 mL/min (90-130); Glucose 108 mg/dL (65-115); Iron 25 ug/dL (59-158); Lactate Dehydrogenase 129 U/L (135-225); Osmolality Calculated 292 mOsm/kg (285-295); Percent Saturation 8.3 % (20-50); Potassium 4.2 mmol/L (3.5-5.1); Sodium 140 mmol/L (136-145); Total Bilirubin 0.2 mg/dL (0.15-1.2); Total Iron Binding Capacity 299 mcg/dl; Unsaturated Iron Binding 274 ug/dL (112-347)
[2024-09-29 11:13] LABS: Vitamin B12 918 pg/mL (232-1245)
[2024-09-29 11:23] LABS: Folate Level 19.3 ng/mL (4.5-32.2)
[2024-10-08 08:30] VITALS: BP 121/68; PULSE 78; RESP 17; TEMP 36.7; O2SAT 93
[2024-10-08] MEDS: iron sucrose 300 MG in sodium chloride 0.9% (100 ml) 100 ML 240 MG IV (08:44)
== END 2024-10-13 23:59 | disposition home or self-care (01) ==
PROVIDERS: Internal Medicine; PCP Physician Assistant; Visit Provider Internal Medicine Medical Oncology
DX: Z53.9 Procedure and treatment not carried out, unspecified reason; D50.0 Iron deficiency anemia secondary to blood loss (chronic); Z79.899 Other long term (current) drug therapy
CPT/HCPCS: 36415; 80053; 82607; 82728; 82746; 83010; 83540; 83550; 83615; 85025; 85045; 85651; 86140; 86880; 96365; 99214; J1756

== ENCOUNTER → 2024-10-25 13:49 | Outpatient (BNVA) | payer MEDICARE, SELFPAY | PROVIDERS: Family Provider Internal Medicine; PCP Physician Assistant; Visit Provider Internal Medicine | DX: R07.9 Chest pain, unspecified (principal); Z86.718 Personal history of other venous thrombosis and embolism; Z86.711 Personal history of pulmonary embolism; G47.33 Obstructive sleep apnea (adult) (pediatric); I78.0 Hereditary hemorrhagic telangiectasia; Z79.01 Long term (current) use of anticoagulants; R94.39 Abnormal result of other cardiovascular function study; I20.0 Unstable angina | CPT/HCPCS: 36415; 80048; 85025; 85610; 93005; 99204 ==

== ENCOUNTER → 2024-10-25 14:41 | Outpatient (BNVA) | payer MEDICARE, SELFPAY | PROVIDERS: Family Provider Internal Medicine; PCP Physician Assistant; Visit Provider Internal Medicine | DX: R55 Syncope and collapse (principal); I49.8 Other specified cardiac arrhythmias; I49.1 Atrial premature depolarization; I49.3 Ventricular premature depolarization; I47.20 Ventricular tachycardia, unspecified; I47.10 Supraventricular tachycardia, unspecified | CPT/HCPCS: 93242 ==

== ENCOUNTER 2024-10-28 07:31 | Outpatient (CLI) | payer MEDICARE, SELFPAY ==
--- NOTE | 2024-10-26 11:36 | PC.NURSE ---
The patient is scheduled for [facility] 10/28/24. This nurse called to remind him to hold his Eliquis x 48 hours and that someone from this department would call him tomorrow, Friday10/27/2024, to do PAT. He verbalized his understanding.
[2024-10-28 07:30] VITALS: BP 134/78; PULSE 80; RESP 18; TEMP 36.9; O2SAT 95; BMI 35.4
--- NOTE | 2024-10-28 07:30 | XACV_ITS ---
Exam Room: 2 Ht: 191 cm Wt: 128 kg BSA: 2.65 m2 Gender: Male : 1960 Any Known Allergies: Other Exam Priority: Routine Procedure(s): Procedure Description: Diagnostic procedure Procedure Description: Left Heart Catheterization Procedure Description: Left ventriculography Procedure Description: Coronary Angiography Diagnostic Cath Status: Elective Diagnostic Findings * INDICATION: Dyspnea on exertion/ abnormal stress test. 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 * No disease noted in the Left Main, Left Anterior Descending, Right, or Circumflex coronary arteries. * Coronary angiography shows right dominance. Conclusions 1. No disease noted in the Left Main, Left Anterior Descending, Right, or Circumflex coronary arteries. 2. Normal left ventricular systolic function. Ejection fraction of 55%. Recommendations * Continue current medical management and risk factor modification. Ventriculography Ejection Fraction: 55.0 % Pressures Phase:Rest AO : 99 / 61 ( 78 ) @ 11:28:00 AM 100 / 59 ( 77 ) @ 11:28:00 AM LV : 122 / -20 / 3 @ 11:27:00 AM 113 / -13 / 5 @ 11:28:00 AM 112 / -13 / 4 @ 11:28:00 AM Valves Phase:DefaultPhase AV : 13.0 @ 10:35:44 AM AV Mean Gradient: 9.0 @ 10:35:44 AM Clinical Evaluation EBL: 5mL-10mL Procedural Details Procedure Consent Obtained. Admit Source: Out Patient. Pre-Procedure Time Out. Identified patient by full name and date of as verbalized by the patient/guarantor. Does the consent match the physician's order: Yes. Accurate & Complete Informed Consent: Yes. Inpatient/Outpatient History & Physical on Chart: Yes. If H&P is completed, is and addenduem needed: No; If yes, is the addendum complete: N/A. Visualize and Verify Site with Patient/Guarantor: N/A. Relevant Radiology Images available: Yes. The risks, benefits, and alternatives of sedation and/or procedure were discussed by physician. The patient agrees to continue. Procedure started. [facility] Clinical Fraility Score: 3: Managing Well. 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 Chest Pain Symptom Assessment: Typical Angina Symptoms. Correct patient, site and procedure confirmed by cath team. Current diagnosis: Chest Pain, Abnormal stress test. PERRLA. Strong, equal hand brake shoe rebuilder bilaterally. Lungs clear x 5 lobes. IV Site on Arrival: 20 gauge in the left anticubital. IV Fluids: 0.9% NaCl at KVO. 0 mL infused prior to laborer tanbark. Pre Procedural Pulses: bilateral posterior tibial was 3+. Pre Procedural Pulses: bilateral dorsalis pedis was 3+. Pre Procedural Pulses: bilateral radial was 3+. Oxygen started at 2liters/min via nasal canula. right radial was prepped with chloroprep then draped in the usual sterile fashion. right groin was prepped with chloroprep then draped in the usual sterile fashion. Physician notified. Baseline sample Acquired. HR: 67 BPM. Physician arrived. Physician scrubbed in. Immediate Pre-Procedure Time Out. Correct Patient: Yes; Correct Procedure: Yes; Correct Site: Yes; Correct Patient Position: Yes; Correct Supplies: Yes; Dried Flammable Prep: Yes; Blood Products Available: No;. Lidocaine 1% infiltrated to the right radial. An attempt to gain access to the right radial artery was unsuccessful. Manual pressure was held as needed to stop the bleeding. An attempt to gain access to the right radial artery was unsuccessful. Manual pressure was held as needed to stop the bleeding. Lidocaine 1% infiltrated to the right radial. Ultrasound obtained to assist with arterial access. Arterial access obtained. Needle and wire out. Radial procedure aborted due to vasospasm. Lidocaine 1% infiltrated to the right groin. Arterial access obtained with micropuncture set. A 5 brazilian JL4 catheter in over wire. Catheter removed over the exchange wire. A 5 brazilian JL4.5 catheter in over wire. Multiple views taken of left coronary artery. Catheter removed over the exchange wire. A 5 brazilian JR4 catheter in over wire. Multiple views taken of right coronary artery. Catheter removed over the exchange wire. A 5 brazilian Angled Pig catheter in over wire. EDP Sample taken: LV 122/-21,3; HR: 72 BPM; SpO2: 96%. LV gram performed in [place] @ 10 mL/second for a total of 30 mL. EDP Sample taken: LV 113/-14,5; HR: 67 BPM; SpO2: 95%. Pullback taken: LV 112/-14,4; AO 99/61(78); Mean: 9mmHg, Peak to Peak: 13mmHg, SEP: 16sec/min; HR: 68 BPM; SpO2: 98%. Catheter removed over the exchange wire. Wire out. A Right femoral angiogram was performed to determine safe placement of closure device. Medication's Wasted: Nitro = 49.8 mg. Medication's Wasted: Heparin = 1000 unit. Medication's Wasted: Other = Versed 1 mg. Total IV fluids: 50 mL. PERRLA. Strong, equal hand brake shoe rebuilder bilaterally. No VTE prophylaxis required. Post Procedure: Pulses reassessed and unchanged. A Angio-Seal VIP ([place]) was successful obtaining hemostatsis at the Right Femoral artery insertion site. LOT # [id number] EXP 05-20-2025. Post-op diagnosis: Non-obstructive CAD. Complications: None. Estimated blood loss: 5mL-10mL. Responsiveness - Normal response to verbal stimuli; alert and oriented, PERRLA. Airway - Unaffected, no intervention required; spontaneous ventilation. Circulation: W/N/L, pulses unchanged. Nausea/Vomiting: No. Procedure completed. Patient transferred by bed to CPRU. Vital chart was stopped. Access Site Site: Right Femoral artery Sheath Size: 6 Fr Hemostasis Method: Angio-Seal VIP ([place]) Hemostasis Success: Successful Procedure Medications Start: 10:01 AM Stop: 10:01 AM Medication: Versed Amount: 1 mg Route: I.V. Start: 10:01 AM Stop: 10:01 AM Medication: Fentanyl Amount: 50 mcg Route: I.V. Start: 10:04 AM Stop: 10:04 AM Medication: Versed Amount: 1 mg Route: I.V. Start: 10:04 AM Stop: 10:04 AM Medication: Fentanyl Amount: 25 mcg Route: I.V. Start: 10:08 AM Stop: 10:08 AM Medication: Nitrogylcerin Amount: 200 mcg Route: I.A. Start: 10:17 AM Stop: 10:17 AM Medication: Versed Amount: 1 mg Route: I.V. Start: 10:17 AM Stop: 10:17 AM Medication: Fentanyl Amount: 25 mcg Route: I.V. I, the attending physician, have reviewed and verified all procedure medications. Yes, all medications given per verbal order History/Risk Factors Hypertension: No Dyslipidemia: No Peripheral Arterial Disease (PAD): No Myocardial Infarction (UT): No Obesity: Yes Renal Disease: No Tobacco Use: Never Prior Interventions PCI: No CABG: No Valve Surgery: No Report Signatures Finalized by Jayson Hansen MD on 11/14/2024 02:49 PM
[2024-10-28] MEDS: diphenhydrAMINE 50 mg Capsule PO (08:10)
--- NOTE | 2024-10-28 09:49 | W.PM.OPSUD ---
Surgery/Procedure H&P Update DATE OF PROCEDURE: October 28, 2024 DATE H&P PERFORMED: 10/25/24 H&P UPDATE INFORMATION: I have reviewed H&P completed within last 30 days, I have examined patient prior to procedure and No changes to prior documentation PREOP DIAGNOSIS: Dyspnea on exertion/ abnormal stress test PRIMARY INDICATION FOR PROCEDURE: Dyspnea on exertion/ abnormal stress test PLANNED PROCEDURE: Operation Date: 10/28/24 08:30 Proposed Procedures p Cardiac Catheterization - C w/wo LV & Coros(Left) - Jayson Hansen M.D Possible percutaenous coronary intervention PATIENT REASSESSED PRIOR TO SEDATION, WITH NO CHANGE NOTED: Yes PHYSICAL EXAM: alert, oriented x 3, clear to auscultation bilaterally and regular rate & rhythm AIRWAY EVAL/ANESTHESIA PLAN: normal airway, ASA III, Local Anesthesia, Risks, benefits & alternatives of sedation and/or procedure discussed and Patient agrees to continue as planned ADDITIONAL INFORMATION: Moderate sedation
[2024-10-28 10:46] VITALS: BP 134/78; PULSE 68; RESP 14; O2SAT 92
--- NOTE | 2024-10-28 10:56 | SUR.PHASEI ---
POST CATH NOTE Received patient from Streetcar Repairer Helper. Status post diagnostic cath from the radial and femoral approach. TR band to the right wrist and Femoral Angioseal in place to right leg. Both Sites are hemostatic and free of hematoma. Verbal post cath istuctions went over with the patient/family. They understood well. Call light within reach. Informed to call for needs.
[2024-10-28 11:00] VITALS: BP 113/70; PULSE 66; RESP 13; O2SAT 93
[2024-10-28 11:15] VITALS: BP 106/73; PULSE 68; RESP 14; O2SAT 96
--- NOTE | 2024-10-28 12:27 | P.SS_ITS ---
<Statement entered by Jayson Hansen M.D - 10/29/24 09:28> Patient was cared for in conjunction with an advanced practice practitioner.? I reviewed the chart and all pertinent data including imaging, telemetry, and laboratory results.? I discussed the patient in detail with the advanced practice practitioner.? Please see? their note for testing results and agreed upon plan of care for the patient. Short Stay Summary Providers Date of Admit/Discharge: 10/28/24 Attending Provider: Jayson Hansen M.D Primary Care Provider: Katie Fu Chief Complaint: R07.9 HPI History of Present Illness Vicente Galarza is a 64 year old male with past medical history of had a history hemorrhagic telangiectasias, iron deficiency anemia, pulmonary embolism on low- dose Eliquis has been referred for evaluation of chest pain. He also has significant dyspnea on exertion. He is feeling lightheaded and dizzy also. The symptoms have worsened in the last 6 weeks. He had a recent stress test that was abnormal showing ischemia in RCA territory. EKG shows sinus rhythm with no significant ST-T wave changes. Review of Systems Card: Denies: chest pain, palpitations, irregular heart rhythm, edema, swelling of feet/ankles, lightheadedness, syncope, pre-syncope, dyspnea on exertion, orthopnea or leg pain with exertion Resp: Denies: dyspnea, productive cough or non-productive cough GI: Denies: hematochezia : Denies: hematuria Skin/Breast: Reports: surgical incision Migue/Lymph: Denies: easy bleeding Home Meds/Allergies Home Medications and Allergies Home Medications ?Medication ?Instructions ?Recorded ?Confirmed ?Type cyanocobalamin (vitamin B-12) 1,000 mcg PO DAILY 03/3010/27/24 History 1,000 mcg tablet (Vitamin B-12) magnesium 250 mg tablet 250 mg PO DAILY 03/30/20 History multivitamin 1 tab PO DAILY 03/30/2010/14 History sumatriptan succinate 100 mg tablet 100 mg PO Q2H PRN Migraine Headache 08/14/20 10/27/24 History pantoprazole 40 mg tablet,delayed 40 mg PO DAILY 01/0210/27/24 History release (Protonix) ascorbic acid (vitamin C) 1,000 mg 1 g PO DAILY 10/27/24 History tablet cholecalciferol (vitamin D3) 25 50 mcg PO DAILY 10/27/24 History mcg (1,000 unit) capsule (Vitamin D3) ferrous sulfate 325 mg (65 mg 650 mg PO DAILY 03/04/22 10/27/24 History iron) tablet (iron) tamsulosin 0.4 mg capsule 0.4 mg PO BEDTIME 03/04/22 0 10/28/24 History Allergies Allergy/AdvReac Type Severity Reaction Status Date / Time grass pollen-[place], Allergy Severe ALGY-Difficulty Verified 10/28/24 09:23 standard Breathing gabapentin Allergy ADR-Itching Verified 10/28/24 09:23 meperidine (From Demerol) Allergy ADR-Nausea Verified 10/28/24 09:23 PFSH Acute PFSH: Medical History Pulmonary embolism Hereditary hemorrhagic telangiectasia History of pulmonary embolism Iron deficiency anemia secondary to blood loss (chronic) Deep vein thrombosis (DVT) of right lower extremity DDD (degenerative disc disease), lumbar Peripheral neuropathy Traumatic blindness of left eye Seronegative rheumatoid arthritis Immunization counseling Osteoarthritis High risk medication use Surgical History History of nasal cauterization S/P lumbar fusion L4/5 laminectomy with fusion H/O: knee surgery Right knee x 2, left knee x 1 S/P left rotator cuff repair S/P right rotator cuff repair S/P appy H/O eye surgery Left eye prosthesis Cornea replaced by transplant Family History Other Cancer Denies family history of Rheumatoid arthritis Diabetes Lupus CAD (coronary artery disease) Hypertension Social History Smoking and tobacco/nicotine status: never used tobacco/nicotine Alcohol intake: never Vitals/I&O/Wt Last Vital Signs Temp 98.4 F 10/28/24 07:30 Pulse 68 10/28/24 11:15 Resp 14 10/28/24 11:15 BP 106/73 10/28/24 11:15 Pulse Ox 96 10/28/24 11:15 O2 Del Method Room Air 10/28/24 11:15 Weight last 48 hrs Weight 283 lb Physical Exam Const: COMMON NORMALS: no acute distress and patient oriented x3 GENERAL APPEARANCE: cooperative ORIENTATION/CONSCIOUSNESS: Yes awake, Yes oriented to person, Yes oriented to place and Yes oriented to time Chest: COMMONS NORMALS: normal inspection of the chest and normal palpation of entire chest wall CHEST: Yes Symmetrical chest wall rise Resp: COMMON NORMALS: normal respiratory effort, No retractions, No use of accessory muscles and clear to auscultation bilaterally AUSCULTATION: clear to auscultation bilaterally Cardio: COMMON NORMALS: regular rate, regular rhythm, S1 normal heart sound present, S2 normal heart sound present, No gallops present (Cardio), No clicks present (Cardio), No murmurs present (Cardio) and No rub (Cardio) RATE: regular rate RHYTHM: regular rhythm HEART SOUNDS: S1 normal heart sound present and S2 normal heart sound present PERIPHERAL PULSES: radial pulses p resent positive right 2+ and femoral pulses present positive right 2+ Neuro: COMMON NORMALS: patient oriented x3 and moves all extremities SENSORIUM/ORIENTATION: Yes oriented to person, Yes oriented to place and Yes oriented to time Skin: WOUNDS: Yes surgical site (no hematoma palpable) Details: no odor Hospital Course Discharge Summary He was brought today for coronary angiogram, no significant stenosis noted. He will be discharged home today after bedrest completed, no hematoma noted at the right femoral/radial cath sites. He can resume Eliquis 2.5 mg starting tomorrow morning. Resume all other home medications. Follow-up in cardiology clinic with the [facility] in 7 to 10 days. SSS Data Data Completed and Pending: Pending at discharge Category Date Time Status CUSTOMER SPECIALIST request for service Routin e Exams 10/28/24 07:30 Taken Partial Thrombopl astin Time Routine Lab 10/28/24 13:27 Ordered Discharge Plan Discharge Patient Disposition: Home Prescriptions: Continued pantoprazole [Protonix] 40 mg tablet,delayed release (DR/EC) 40 mg PO DAILY sumatriptan succinate 100 mg tablet 100 mg PO Q2H PRN (Reason: Migraine Headache) Rx Instructions: do not exceed 2 doses per 24 hrs ascorbic acid (vitamin C) 1,000 mg tablet 1 g PO DAILY tamsulosin 0.4 mg capsule 0.4 mg PO BEDTIME prednisone 5 mg tablet 10 mg PO .as directed PRN (Reason: Rheumatoid Arthritis ) 30 Days Qty: 30 1RF Rx Instructions: use 10 mg daily for 3-4 days for arthritis flare up enoxaparin [Lovenox] 120 mg/0.8 mL syringe 120 mg SUBCUT Q12H Qty: 3.2 0RF Rx Instructions: Lovenox bridge 2 days prior to procedure. One injection in the AM & PM for a total of 4 injections. albuterol sulfate 90 mcg/actuation HFA aerosol inhaler 2 puff inhalation Q6H PRN (Reason: shortness of breath or wheezing) Qty: 8.5 6RF Eliquis 2.5 mg tablet 2.5 mg PO BID Qty: 60 3RF pregabalin [Lyrica] 100 mg capsule 100 mg PO BID Qty: 180 1RF budesonide-formoterol [Symbicort] 80-4.5 mcg/actuation HFA aerosol inhaler 1 inh inhalation BID Qty: 10.2 6RF Orencia 125 mg/mL syringe 125 mg SUBCUT .Q7days Qty: 12 3RF Rx Instructions: takes on wednesdays multivitamin Tablet 1 tab PO DAILY cyanocobalamin (vitamin B-12) [Vitamin B-12] 1,000 mcg Tablet 1,000 mcg PO DAILY magnesium 250 mg Tablet 250 mg PO DAILY Vitamin D3 25 mcg (1,000 unit) capsule 50 mcg PO DAILY iron 325 mg (65 mg iron) tablet 650 mg PO DAILY Discharge Orders: Discharge Order (Routine); Ordered 10/28/24 Ordered By: Lily Serrano Referrals: Kacy Bonilla NP [Nurse Practitioner, Cardiology] - 7-10 days Diet: Advance as tolerated Activity: Increase activity as tolerated Activity Restrictions/Additional Instructions: No lifting over 5 pounds for the next week. Print Language: [place] Attestations Medical Necessity Statement*: Plan discharge today Time Spent in Patient Care*: less than 30 min Quality Metrics Clinical Quality Measures: [ No reported AMI, CVA or VTE this stay ] Coding Level of Care Code Acute Code for Chg Fwana m
[2024-10-28 14:13] VITALS: BP 111/60; PULSE 74; RESP 4; O2SAT 96
[2024-10-28 14:15] VITALS: BP 111/60; PULSE 97; RESP 20; TEMP 36.7; O2SAT 93
== END 2024-10-28 15:00 | disposition home or self-care (01) ==
LOC: CCL 07:37 → CSU 11:39
PROVIDERS: PCP Physician Assistant; Visit Provider Internal Medicine
DX: R07.9 Chest pain, unspecified (principal); R94.39 Abnormal result of other cardiovascular function study; R06.09 Other forms of dyspnea; E66.9 Obesity, unspecified; Z68.35 Body mass index [BMI] 35.0-35.9, adult; Z79.01 Long term (current) use of anticoagulants; Z86.711 Personal history of pulmonary embolism; K21.9 Gastro-esophageal reflux disease without esophagitis; Z86.718 Personal history of other venous thrombosis and embolism
CPT/HCPCS: 36415; 93458; 99152; 99153; C1760; C1769; C1887; C1894; G0269; J1644; J2250; J3010; J3490; J7030; J9999; Q0163; Q9967

== ENCOUNTER → 2024-11-03 12:52 | Outpatient (BNVA) | payer MEDICARE, SELFPAY | PROVIDERS: PCP Physician Assistant; Visit Provider Nurse Practitioner Family | DX: I95.1 Orthostatic hypotension (principal); Z86.711 Personal history of pulmonary embolism; Z79.01 Long term (current) use of anticoagulants; D64.89 Other specified anemias | CPT/HCPCS: 99214 ==

== ENCOUNTER 2024-11-04 08:00 | Oncology outpatient (recurring) (ONCR) | payer MEDICARE, SELFPAY ==
[2024-10-15] MEDS: SODIUM CHLORIDE 0.9% IV (11:08)
[2024-10-15] MEDS: IRON SUCROSE IV (11:08)
[2024-10-15 11:28] VITALS: BP 129/79; PULSE 53; RESP 17; TEMP 37.1; O2SAT 96
[2024-10-22 10:53] VITALS: BP 113/78; PULSE 73; RESP 17; TEMP 36.3; O2SAT 92
[2024-10-22] MEDS: IRON SUCROSE IV (11:20)
[2024-10-22] MEDS: SODIUM CHLORIDE 0.9% IV (11:20)
[2024-10-29 10:27] VITALS: BP 130/70; PULSE 91; RESP 17; TEMP 36.6; O2SAT 97
[2024-10-29] MEDS: IRON SUCROSE IV (10:58)
[2024-10-29] MEDS: SODIUM CHLORIDE 0.9% IV (10:58)
[2024-11-04] MEDS: IRON SUCROSE IV (08:16)
[2024-11-04] MEDS: SODIUM CHLORIDE 0.9% IV (08:16)
[2024-11-04 09:11] VITALS: BP 110/64; PULSE 91; RESP 16; TEMP 36.4; O2SAT 96
== END 2024-11-13 23:59 | disposition home or self-care (01) ==
PROVIDERS: Family Provider Internal Medicine; PCP Physician Assistant; Visit Provider Internal Medicine
DX: Z53.9 Procedure and treatment not carried out, unspecified reason; D50.0 Iron deficiency anemia secondary to blood loss (chronic); Z79.899 Other long term (current) drug therapy
CPT/HCPCS: 96365; J1756

== ENCOUNTER 2024-11-25 15:28 | Outpatient (CLI) | payer MEDICARE, SELFPAY ==
--- NOTE | 2024-11-25 15:49 | CTR_ITS ---
PROCEDURE INFORMATION: Exam: CTA Chest With Contrast Exam date and time: 11/25/2024 4:16 PM Age: 64 years old Clinical indication: Dyspnea on exertion, HX of pe's; Additional info: [place] TECHNIQUE: Imaging protocol: Computed tomographic angiography of the chest with contrast. Exam focused on the arteries. 3D rendering (Not supervised by radiologist): MIP and/or 3D reconstructed images were created by the technologist. Radiation optimization: All CT scans at this facility use at least one of these dose optimization techniques: automated exposure control; mA and/or kV adjustment per patient size (includes targeted exams where dose is matched to clinical indication); or iterative reconstruction. Contrast material: OMNIPAQUE 350; Contrast volume: 100 ml; Contrast route: INTRAVENOUS (IV); COMPARISON: CT angio chest PE protcl [id number] 07/19/2022 7:29 AM RADIATION DOSE METRICS: Total DLP (mGy-cm): 488.67 FINDINGS: Pulmonary arteries: No pulmonary emboli. Aorta: Unremarkable. No aortic aneurysm. No aortic dissection. Lungs: There is a 14 mm, previously 14 mm, juxtapleural pulmonary nodule in the left lung base (series 5, image 38). Given its stability over multiple years this is thought almost certainly to be benign. No focal consolidation. Pleural spaces: Unremarkable. No pneumothorax. No pleural effusion. Heart: Unremarkable. No cardiomegaly. No pericardial effusion. Coronary arteries: Coronary arterial atherosclerotic calcifications are present. Lymph nodes: Unremarkable. No enlarged lymph nodes. Bones/joints: Multilevel anterior bridging osteophytes throughout the thoracic spine which can be seen the setting DISH. Soft tissues: Unremarkable. CT/CT angio chest PE protcl [id number] IMPRESSION: 1. No pulmonary emboli. 2. No focal consolidation.
[2024-11-25] MEDS: iohexol 350 mg/mL 500 mL Btl (per mL) IV (16:26)
== END 2024-11-25 15:29 | disposition home or self-care (01) ==
LOC: RAD 15:29
PROVIDERS: Family Provider Internal Medicine; PCP Physician Assistant; Visit Provider Physician Assistant
DX: R06.09 Other forms of dyspnea (principal)
CPT/HCPCS: 71275

== ENCOUNTER 2024-12-05 07:07 | Observation (INO) | payer MEDICARE, SELFPAY ==
[2024-12-05] VITALS (18 sets, daily range): BP systolic 118–135; BP diastolic 53–72; PULSE 63–81; RESP 16–18; TEMP 36.7–36.8; O2SAT 91–98; BMI 33.7
--- NOTE | 2024-12-05 07:22 | W.ED.NAVMDI ---
HPI - Nausea/Vomiting/Diarrhea General: Chief complaint: Nausea/Vomiting/Diarrhea Stated complaint: NV Time Seen by Provider: 12/05/24 07:11 Source: patient Mode of arrival: ambulatory Limitations: no limitations History of Present Illness: 64-year-old male states that he has had vomiting since last night. States he did have a nosebleed and started vomiting 8 PM and has vomited throughout the night and this morning. Patient states has been having right upper quadrant pain since last night as well and its worsened today pains to 7 out of 10 denies any fevers denies any worse improved factors Associated nausea: Yes Associated symtoms: Reports nausea; Denies chest pain, dysuria or headache(s) Related Data Home Medications ?Medication ?Instructions ?Recorded ?Confirmed cyanocobalamin (vitamin B-12) 1,000 mcg PO DAILY 03/30/20 12/05/24 1,000 mcg tablet (Vitamin B-12) magnesium 250 mg tablet 250 mg PO DAILY 03/30/20 12/05/24 multivitamin 1 tab PO DAILY 03/30/20 12/05/24 pantoprazole 40 mg tablet,delayed 40 mg PO DAILY 01/02/21 12/05/24 release (Protonix) ascorbic acid (vitamin C) 1,000 mg 1 g PO DAILY 03/04/22 12/05/24 tablet cholecalciferol (vitamin D3) 25 50 mcg PO DAILY 03/04/22 12/05/24 mcg (1,000 unit) capsule (Vitamin D3) ferrous sulfate 325 mg (65 mg 650 mg PO DAILY 03/04/22 12/05/24 iron) tablet (iron) tamsulosin 0.4 mg capsule 0.4 mg PO BEDTIME 03/04/22 12/05/24 fluticasone 250 mcg-salmeterol 50 1 inh inhalation BID 12/05/24 12/05/24 mcg/dose blistr powdr for inhalation (Advair Diskus) nitroglycerin 0.4 mg sublingual See Rx Instructions .Route .COMPLEX 12/05/24 12/05/24 tablet Previous Rx's ?Medication ?Instructions ?Recorded budesonide-formoterol HFA 80 1 inh inhalation BID #10.2 grams 02/27/23 mcg-4.5 mcg/actuation aerosol inhaler (Symbicort) prednisone 5 mg tablet 10 mg (2 x 5 mg) PO .as directed 12/24/23 PRN Rheumatoid Arthritis 30 days #30 tabs apixaban 2.5 mg tablet (Eliquis) 2.5 mg PO BID #60 tabs 06/02/24 pregabalin 100 mg capsule (Lyrica) 100 mg PO BID #180 caps 06/23/24 abatacept 125 mg/mL subcutaneous 125 mg SUBCUT .Q7days #12 mL 08/23/24 syringe (Orencia) midodrine 10 mg tablet 10 mg PO BID PRN low blood 11/03/24 pressure #60 tabs Allergies Allergy/AdvReac Type Severity Reaction Status Date / Time grass pollen-[place], Allergy Severe ALGY-Difficulty Verified 11/03/24 13:05 standard Breathing gabapentin Allergy ADR-Itching Verified 11/03/24 13:05 meperidine (From Demerol) Allergy ADR-Nausea Verified 11/03/24 13:05 Review of Systems Const: Denies: fever(s), chills, body aches or change in appetite ENMT: Denies: throat pain or dental pain Card: Denies: chest pain Resp: Denies: dyspnea GI: Reports: abdominal pain, nausea and vomiting; Denies: diarrhea : Denies: dysuria Musc: Denies: neck pain or back pain Skin/Breast: Denies: rash Neuro: Denies: headache(s) PFSH ED PFSH: Medical History Pulmonary embolism Hereditary hemorrhagic telangiectasia History of pulmonary embolism Iron deficiency anemia secondary to blood loss (chronic) Deep vein thrombosis (DVT) of right lower extremity DDD (degenerative disc disease), lumbar Peripheral neuropathy Traumatic blindness of left eye Seronegative rheumatoid arthritis Immunization counseling Osteoarthritis High risk medication use Surgical History History of nasal cauterization S/P lumbar fusion L4/5 laminectomy with fusion H/O: knee surgery Right knee x 2, left knee x 1 S/P left rotator cuff repair S/P right rotator cuff repair S/P appy H/O eye surgery Left eye prosthesis Cornea replaced by transplant Family History Other Cancer Denies family history of Rheumatoid arthritis Diabetes Lupus CAD (coronary artery disease) Hypertension Social History Smoking and tobacco/nicotine status: never used tobacco/nicotine Alcohol intake: never Physical Exam Const: COMMON NORMALS: no acute distress, patient oriented x3 and healthy appearing HENMT: COMMON NORMALS: normocephalic and atraumatic HEAD & SCALP: normocephalic and atraumatic Eye: COMMON NORMALS: conjunctivae normal CONJUNCTIVA: Yes conjunctivae normal Neck/C-Spine: COMMON NORMALS: full ROM and supple Chest: COMMONS NORMALS: normal inspection of the chest Resp: COMMON NORMALS: normal respiratory effort, No retractions, No use of accessory muscles and clear to auscultation bilaterally AUSCULTATION: clear to auscultation bilaterally Cardio: COMMON NORMALS: regular rate, regular rhythm and No murmurs present (Cardio) RATE: regular rate RHYTHM: regular rhythm GI: COMMON NORMALS: Normal to inspection, nondistended, normoactive bowel sounds present, Soft to palpation and no masses PALPATION: Yes Soft to palpation and Yes Tenderness to palpation present (GI) Details: RUQ Extremity: COMMON NORMALS: normal to inspection and full ROM Neuro: COMMON NORMALS: patient oriented x3, moves all extremities and no focal motor deficits Psych: COMMON NORMALS: mental status grossly normal, Normal thought process present and cooperative THOUGHT PROCESS: Normal thought process present Skin: COMMON NORMALS: no rashes or lesions noted and no wounds GENERAL SKIN EXAM: no rashes or lesions noted Course Vital Signs: Vital signs: Vital Signs Temperature 98.0 F 12/05/24 07:18 Pulse Rate 66 12/05/24 07:14 Respiratory Rate 17 12/05/24 09:34 Blood Pressure 119/63 12/05/24 07:14 Pulse Oximetry 98 12/05/24 09:34 Oxygen Delivery Me thod Room Air 12/05/24 07:14 MDM - Nausea/Vomiting/Diarrhea Medical Decision Making Patient presents here with abdominal pain CT shows cholecystitis spoke to surgeon seen patient in the ER and will admit this time. Medical Records I reviewed the patient's medical records. Lab Data I reviewed the patient's lab results. 12/05/24 07:30 12/05/24 07:30 Radiology Impressions Abdomen/Pelvis CT 12/05/24 09:20 IMPRESSION: 1. Findings most consistent with acute cholecystitis 2. A benign renal cyst or cysts have been detected. No further follow-up imaging is required. COMMENTS: Consistent with the [employer]'s Incidental Findings Committee white paper (J Am Eleni Radiol 2018): Any incidental renal lesion less than 1 cm or classified as too small to characterize, or any incidental cystic renal lesion characterized as simple-appearing, is likely benign. No follow-up imaging is recommended for these lesions per consensus recommendations based on imaging criteria. Laboratory Results WBC 8.33 10^3/uL (3.29-11.43) 12/05/24 07:30 RBC 3.02 10^6/uL (3.85-5.65) L 12/05/24 07:30 Hgb 8.30 g/dL (11.27-16.99) L 12/05/24 07:30 Hct 29.3 % (37-53) L 12/05/24 07:30 MCV 97.0 fl (82-101) 12/05/24 07:30 MCH 27.5 pg (27-33) 12/05/24 07:30 MCHC 28.3 g/dL (30-55) L 12/05/24 07:30 RDW 15.6 % (12.1-15.1) H 12/05/24 07:30 Plt Count 217 10^3/cmm (157-399) 12/05/24 07:30 MPV 10.2 fL (7.4-10.4) 12/05/24 07:30 Neut % (Auto) 95.1 % 12/05/24 07:30 Lymph % (Auto) 2.2 % 12/05/24 07:30 [place] % (Auto) 2.4 % 12/05/24 07:30 Eos % (Auto) 0.0 % 12/05/24 07:30 Baso % (Auto) 0.1 % 12/05/24 07:30 Neut # (Auto) 7.92 10^3/uL (1.8-7.7) H 12/05/24 07:30 Lymph # (Auto) 0.2 10^3/uL (0.8-4.8) L 12/05/24 07:30 [place] # (Auto) 0.2 10^3/uL (0.2-0.9) 12/05/24 07:30 Eos # (Auto) 0.0 10^3/uL (0.0-0.8) 12/05/24 07:30 Baso # (Auto) 0.0 10^3/uL (0.0-0.1) 12/05/24 07:30 Nucleated RBC % (auto) 0 % 12/05/24 07:30 Nucleated RBCs # 0.0 /100WBC 12/05/24 07:30 Sodium 143 mmol/L (136-145) 12/05/24 07:30 Potassium 4.3 mmol/L (3.5-5.1) 12/05/24 07:30 Chloride 107 mmol/L (98-107) 12/05/24 07:30 Carbon Dioxide 24 mmol/L (22-29) 12/05/24 07:30 Anion Gap 16.3 (5-19) 12/05/24 07:30 BUN 12 mg/dL (8-23) 12/05/24 07:30 Creatinine 0.8 mg/dL (0.7-1.2) 12/05/24 07:30 GFR Calculation 97.0 mL/min (90-130) 12/05/24 07:30 Glucose 150 mg/dL (65-115) H 12/05/24 07:30 Calculated Osmolality 299 mOsm/kg (285-295) H 12/05/24 07:30 Calcium 8.5 mg/dL (8.5-10.5) 12/05/24 07:30 Total Bilirubin 0.2 mg/dL (0.15-1.2) 12/05/24 07:30 AST 14 U/L (0-40) 12/05/24 07:30 ALT 11 U/L (0-41) 12/05/24 07:30 Alkaline Phosphatase 67 U/L (40-130) 12/05/24 07:30 Total Protein 6.1 g/dL (6.6-8.7) L 12/05/24 07:30 Albumin 3.8 g/dL (3.5-5.2) 12/05/24 07:30 Globulin 2.3 g/dL (1.3-4.6) 12/05/24 07:30 Lipase 25 U/L (13-60) 12/05/24 07:30 All radiology interpretation(s) finalized by discharge Discharge Plan Discharge Patient Disposition: Admitted As Inpatient Clinical Impression: Acute cholecystitis Condition: Stable Coding Level of Care Code ED Stroboroma Operator for Benjamin Gunn
[2024-12-05 07:35] LABS: Basophils % 0.1 %; Hematocrit 29.3 % (37-53); Lymphocytes # 0.2 10^3/uL (0.8-4.8); Lymphocytes % 2.2 %; Mean Corpuscular HGB Conc 28.3 g/dL (30-55); Mean Corpuscular Hemoglobin 27.5 pg (27-33); Mean Platelet Volume 10.2 fL (7.4-10.4); Monocytes # 0.2 10^3/uL (0.2-0.9); Monocytes % 2.4 %; Neutrophils # 7.92 10^3/uL (1.8-7.7); Neutrophils % 95.1 %; Nucleated Red Blood Cells % 0 %; Platelet Count 217 10^3/cmm (157-399); Red Blood Count 3.02 10^6/uL (3.85-5.65); Red Cell Distribution Width 15.6 % (12.1-15.1); White Blood Count 8.33 10^3/uL (3.29-11.43)
[2024-12-05 07:52] LABS: Alanine Aminotransferase 11 U/L (0-41); Albumin Level 3.8 g/dL (3.5-5.2); Alkaline Phosphatase 67 U/L (40-130); Anion Gap 16.3 (5-19); Aspartate Amino Transferase 14 U/L (0-40); Blood Urea Nitrogen 12 mg/dL (8-23); Calcium 8.5 mg/dL (8.5-10.5); Carbon Dioxide 24 mmol/L (22-29); Chloride 107 mmol/L (98-107); Creatinine Clr Calc Pharmacy 129.8021; Globulin 2.3 g/dL (1.3-4.6); Glucose 150 mg/dL (65-115); Lipase 25 U/L (13-60); Osmolality Calculated 299 mOsm/kg (285-295); Potassium 4.3 mmol/L (3.5-5.1); Sodium 143 mmol/L (136-145); Total Bilirubin 0.2 mg/dL (0.15-1.2); Total Protein 6.1 g/dL (6.6-8.7)
[2024-12-05] MEDS: ondansetron 2 mg/ML SDV 2 mL 4 MG IVP ×2 (08:33→09:36)
[2024-12-05] MEDS: sodium chloride 0.9% 1,000 ML 999 ML IV (08:33)
--- NOTE | 2024-12-05 09:19 | PC.PHAR ---
Pt states he did not take any morning meds today and he uses the portal so his list is current, including otc's.
--- NOTE | 2024-12-05 09:20 | CTR_ITS ---
PROCEDURE INFORMATION: Exam: CT Abdomen And Pelvis With Contrast Exam date and time: 12/05/2024 9:34 AM Age: 64 years old Clinical indication: Abdominal pain; Epigastric; Additional info: Abd pain TECHNIQUE: Imaging protocol: Computed tomography of the abdomen and pelvis with contrast. Radiation optimization: All CT scans at this facility use at least one of these dose optimization techniques: automated exposure control; mA and/or kV adjustment per patient size (includes targeted exams where dose is matched to clinical indication); or iterative reconstruction. Contrast material: OMNI 350; Contrast volume: 100 ml; Contrast route: INTRAVENOUS (IV); COMPARISON: CT abdomen pelvis w con* [id number] 08/22/2022 2:10 PM RADIATION DOSE METRICS: Total DLP (mGy-cm): 1127.78 FINDINGS: Lungs: Patchy atelectasis involves both lung bases. Liver: Normal. No mass. Gallbladder and biliary ducts: The gallbladder is abnormally distended and the gallbladder wall is edematous. Multiple tiny gallstones are noted. The bile ducts are normal. Pancreas: Normal. No ductal dilation. Spleen: Normal. No splenomegaly. Adrenal glands: Normal. No mass. Kidneys and ureters: 3.7 cm simple cyst involves the right kidney. Stomach and bowel: Unremarkable. No obstruction. No mucosal thickening. Appendix: No evidence of appendicitis. Intraperitoneal space: Unremarkable. No free air. No significant fluid collection. Vasculature: Unremarkable. No abdominal aortic aneurysm. Lymph nodes: Unremarkable. No enlarged lymph nodes. Urinary bladder: Unremarkable as visualized. Reproductive: Unremarkable as visualized. Bones/joints: Metallic surgical hardware can be seen in the lumbar spine. Soft tissues: Unremarkable. CT/CT abdomen pelvis w con* [id number] IMPRESSION: 1. Findings most consistent with acute cholecystitis 2. A benign renal cyst or cysts have been detected. No further follow-up imaging is required. COMMENTS: Consistent with the [employer]'s Incidental Findings Committee white paper (J Am Eleni Radiol 2018): Any incidental renal lesion less than 1 cm or classified as too small to characterize, or any incidental cystic renal lesion characterized as simple-appearing, is likely benign. No follow-up imaging is recommended for these lesions per consensus recommendations based on imaging criteria.
[2024-12-05] MEDS: morphine 4 mg/mL SDV 1 mL IVP (09:34)
[2024-12-05] MEDS: iohexol 350 mg/mL 500 mL Btl (per mL) IV (09:39)
--- NOTE | 2024-12-05 10:35 | USR_ITS ---
PROCEDURE INFORMATION: Exam: US Abdomen, Limited; Right Upper Quadrant Exam date and time: 12/05/2024 10:45 AM Age: 64 years old Clinical indication: Abdominal pain; Prior surgery; Surgery date: 6+ months; Surgery type: Appendectomy. Umbilical hernia repair; Additional info: Ruq pain TECHNIQUE: Imaging protocol: Real time ultrasound of the abdomen with image documentation. Limited exam focused on the right upper quadrant. COMPARISON: US gall bladder [id number] 06/21/2022 12:57 AM FINDINGS: Liver: Normal. No masses. Gallbladder: The gallbladder is severely distended and contains multiple gallstones and sludge. There is prominent wall thickening. Biliary ducts: Normal. No stones. No dilation. Pancreas: Visualized pancreas is unremarkable. Right kidney: A right renal cyst is noted. US/US abdomen limited [id number] IMPRESSION: Acute cholecystitis
[2024-12-05] MEDS: ketorolac 30 mg/mL INJ 15 MG IVP ×3 (10:45→21:25)
[2024-12-05] MEDS: HYDROmorphone 0.5 MG/0.5 ML INJ 1 MG IVP (10:45)
[2024-12-05] MEDS: piperacillin-tazobactam 3.375 GM in sodium chloride 0.9% (plus) 50 ML IV ×2 (11:01→21:24)
--- NOTE | 2024-12-05 13:11 | PM.HP ---
Providers/Chief Complaint Primary Care Provider: Katie Fu Chief Complaint: [place] History of Present Illness Vicente Galarza is a 64 year old male who presents to the hospital with about 12 hours of right upper quadrant pain nausea and vomit. According to patient he had barbecue last night after that he had severe nausea and vomiting several times so subsequently he had severe right upper quadrant pain. He also had an episode of epistaxis. He is on Eliquis last dose was yesterday. Ultrasound and CT scan of the abdomen pelvis done in the ER shows acute cholecystitis Review of Systems General: Reports: 10 or more systems reviewed and unremarkable except in HPI and below Medications/Allergies Home Medications ?Medication ?Instructions ?Recorded ?Confirmed ?Last Taken ?Type cyanocobalamin (vitamin B-12) 1,000 mcg PO DAILY 03/30/20 12/05/24 12/04/24 History 1,000 mcg tablet (Vitamin B-12) magnesium 250 mg tablet 250 mg PO DAILY 03/30/20 12/05/24 12/04/24 History multivitamin 1 tab PO DAILY 03/30/20 12/05/24 12/04/24 History pantoprazole 40 mg tablet,delayed 40 mg PO DAILY 01/02/21 12/05/24 12/04/24 History release (Protonix) ascorbic acid (vitamin C) 1,000 mg 1 g PO DAILY 03/04/22 12/05/24 12/04/24 History tablet cholecalciferol (vitamin D3) 25 50 mcg PO DAILY 03/04/22 12/05/24 12/04/24 History mcg (1,000 unit) capsule (Vitamin D3) ferrous sulfate 325 mg (65 mg 650 mg PO DAILY 03/04/22 12/05/24 12/04/24 History iron) tablet (iron) tamsulosin 0.4 mg capsule 0.4 mg PO BEDTIME 03/04/22 12/05/24 12/04/24 History budesonide-formoterol HFA 80 1 inh inhalation BID #10.2 grams 02/27/23 12/05/24 12/04/24 Rx mcg-4.5 mcg/actuation aerosol inhaler (Symbicort) prednisone 5 mg tablet 10 mg (2 x 5 mg) PO .as directed 12/24/23 12/05/24 Unknown Rx PRN Rheumatoid Arthritis 30 days #30 tabs apixaban 2.5 mg tablet (Eliquis) 2.5 mg PO BID #60 tabs 06/02/24 12/05/24 12/04/24 Rx pregabalin 100 mg capsule (Lyrica) 100 mg PO BID #180 caps 06/23/24 12/05/24 12/04/24 Rx abatacept 125 mg/mL subcutaneous 125 mg SUBCUT .Q7days #12 mL 08/23/24 12/05/24 12/01/24 Rx syringe (Orencia) midodrine 10 mg tablet 10 mg PO BID PRN low blood 11/03/24 12/05/24 Unknown Rx pressure #60 tabs fluticasone 250 mcg-salmeterol 50 1 inh inhalation BID 12/05/24 12/05/24 12/04/24 History mcg/dose blistr powdr for inhalation (Advair Diskus) nitroglycerin 0.4 mg sublingual See Rx Instructions .Route .COMPLEX 12/05/24 12/05/24 Unknown History tablet Allergies Allergy/AdvReac Type Severity Reaction Status Date / Time grass pollen-[place], Allergy Severe ALGY-Difficulty Verified 11/03/24 13:05 standard Breathing gabapentin Allergy ADR-Itching Verified 11/03/24 13:05 meperidine (From Demerol) Allergy ADR-Nausea Verified 11/03/24 13:05 PFSH Acute PFSH: Medical History Pulmonary embolism Hereditary hemorrhagic telangiectasia History of pulmonary embolism Iron deficiency anemia secondary to blood loss (chronic) Deep vein thrombosis (DVT) of right lower extremity DDD (degenerative disc disease), lumbar Peripheral neuropathy Traumatic blindness of left eye Seronegative rheumatoid arthritis Immunization counseling Osteoarthritis High risk medication use Surgical History History of nasal cauterization S/P lumbar fusion L4/5 laminectomy with fusion H/O: knee surgery Right knee x 2, left knee x 1 S/P left rotator cuff repair S/P right rotator cuff repair S/P appy H/O eye surgery Left eye prosthesis Cornea replaced by transplant Family History Other Cancer Denies family history of Rheumatoid arthritis Diabetes Lupus CAD (coronary artery disease) Hypertension Social History Smoking and tobacco/nicotine status: never used tobacco/nicotine Alcohol intake: never Vitals/I&O/Wt Last Vital Signs Temp 98.0 F 12/05/24 07:18 Pulse 68 12/05/24 13:00 Resp 17 12/05/24 09:34 BP 119/63 12/05/24 07:14 Pulse Ox 96 12/05/24 13:00 O2 Del Method Room Air 12/05/24 13:00 12/04/24 12/05/24 12/05/24 22:59 06:59 14:59 Intake Total 1050 / 1050 Balance 1050 / 1050 Weight last 48 hrs Weight 270 lb Physical Exam GI: OTHER: Abdomen soft, there is some tenderness to palpation right upper quadrant, questionable Simmons sign Data 12/05/24 07:30 12/05/24 07:30 A&P Assessment and plan (1) Acute cholecystitis: (2) High risk medication use: Plan 64-year-old male who presents with acute cholecystitis as identified by imaging. Laboratory workup is unremarkable as well as vital signs. He has several medical comorbidities and has been taking Eliquis. Last dose was yesterday. Extensive discussion with the patient regarding possible treatment plan including the possibility of management with antibiotics and follow-up in the clinic for an elective cholecystectomy after cardiology clearance, patient states that he will like to get it done during this hospital admission. I thing that is also appropriate but we will have to wait at least 24 hours for the Eliquis to wear off before proceeding to the OR. I discussed all risk and benefits including the risks of bleeding, infection, damage to surrounding structures including liver, duodenum, colon, risk of injuring bile ducts requiring extensive surgery at higher level of care facility, risk of retained stones, bile leak, bili Alexandrea, need for subtotal cholecystectomy, hernia and wound related complications, need to conversion to open procedure. Patient shows understanding and would like to proceed. I will also consult the medical service as patient has multiple comorbidities. In addition I have explained to the patient that he has high risk for intra abdominal complications as he has history of previous ventral hernia repair with mesh. - clear liquid diet ? N.p.o. after midnight ? Pain control ? IV antibiotics ? Medical consultation. PDMP PDMP Reviewed: Not Reviewed Attestations Medical Necessity Statement*: Patient will require 24 hours of hospital stay for acute cholecystitis Coding Level of Care Code Acute Code for Chg Fwd Diagnoses Acute cholecystitis K81.0 High risk medication use Z79.899
--- NOTE | 2024-12-05 13:45 | PM.CONSULT ---
Providers/Reason For Consult Consulting Physician/Specialty*: General Surgery Reason for Consult*: Medical management Primary Care Provider: Katie Fu History of Present Illness History of Present Illness Vicente Galarza is a 64 year old male with a past medical history of DVT/PE in 2021 on Eliquis, iron deficiency anemia, history of hereditary hemorrhagic telangiectasia, with history of nosebleeds, with plans on cauterization of nares on Friday, recent history of chest pain with recent history of cardiac catheterization with no obstructive CAD seen, history of traumatic blindness of left eye, history of seronegative rheumatoid arthritis, last dose of abatacept was in August, last dose of prednisone as needed was 3 weeks ago and he only used it for 24 hours, does not regularly use steroids, who presents to [facility] for right upper quadrant pain, nausea, vomiting. Patient denies any fevers, chills, no cough, his last dose of Eliquis was 12/04/2024 in the morning, he he has a history of iron deficiency anemia, his hemoglobin is down to 8.3, denies any blood or black stools, he has an EGD/colonoscopy history without any significant findings, Review of Systems Const: Denies: fever(s) or chills Card: Denies: chest pain Resp: Denies: dyspnea GI: Reports: abdominal pain Medications/Allergies Home Medications ?Medication ?Instructions ?Recorded ?Confirmed ?Last Taken ?Type cyanocobalamin (vitamin B-12) 1,000 mcg PO DAILY 03/30/20 12/05/24 12/04/24 History 1,000 mcg tablet (Vitamin B-12) magnesium 250 mg tablet 250 mg PO DAILY 03/30/20 12/05/24 12/04/24 History multivitamin 1 tab PO DAILY 03/30/20 12/05/24 12/04/24 History pantoprazole 40 mg tablet,delayed 40 mg PO DAILY 01/02/21 12/05/24 12/04/24 History release (Protonix) ascorbic acid (vitamin C) 1,000 mg 1 g PO DAILY 03/04/22 12/05/24 12/04/24 History tablet cholecalciferol (vitamin D3) 25 50 mcg PO DAILY 03/04/22 12/05/24 12/04/24 History mcg (1,000 unit) capsule (Vitamin D3) ferrous sulfate 325 mg (65 mg 650 mg PO DAILY 03/04/22 12/05/24 12/04/24 History iron) tablet (iron) tamsulosin 0.4 mg capsule 0.4 mg PO BEDTIME 03/04/22 12/05/24 12/04/24 History budesonide-formoterol HFA 80 1 inh inhalation BID #10.2 grams 02/27/23 12/05/24 12/04/24 Rx mcg-4.5 mcg/actuation aerosol inhaler (Symbicort) prednisone 5 mg tablet 10 mg (2 x 5 mg) PO .as directed 12/24/23 12/05/24 Unknown Rx PRN Rheumatoid Arthritis 30 days #30 tabs apixaban 2.5 mg tablet (Eliquis) 2.5 mg PO BID #60 tabs 06/02/24 12/05/24 12/04/24 Rx pregabalin 100 mg capsule (Lyrica) 100 mg PO BID #180 caps 06/23/24 12/05/24 12/04/24 Rx abatacept 125 mg/mL subcutaneous 125 mg SUBCUT .Q7days #12 mL 08/23/24 12/05/24 12/01/24 Rx syringe (Orencia) midodrine 10 mg tablet 10 mg PO BID PRN low blood 11/03/24 12/05/24 Unknown Rx pressure #60 tabs fluticasone 250 mcg-salmeterol 50 1 inh inhalation BID 12/05/24 12/05/24 12/04/24 History mcg/dose blistr powdr for inhalation (Advair Diskus) nitroglycerin 0.4 mg sublingual See Rx Instructions .Route .COMPLEX 12/05/24 12/05/24 Unknown History tablet Allergies Allergy/AdvReac Type Severity Reaction Status Date / Time grass pollen-[place], Allergy Severe ALGY-Difficulty Verified 11/03/24 13:05 standard Breathing gabapentin Allergy ADR-Itching Verified 11/03/24 13:05 meperidine (From Demerol) Allergy ADR-Nausea Verified 11/03/24 13:05 PFSH Acute PFSH: Medical History Pulmonary embolism Hereditary hemorrhagic telangiectasia History of pulmonary embolism Iron deficiency anemia secondary to blood loss (chronic) Deep vein thrombosis (DVT) of right lower extremity DDD (degenerative disc disease), lumbar Peripheral neuropathy Traumatic blindness of left eye Seronegative rheumatoid arthritis Immunization counseling Osteoarthritis High risk medication use Surgical History History of nasal cauterization S/P lumbar fusion L4/5 laminectomy with fusion H/O: knee surgery Right knee x 2, left knee x 1 S/P left rotator cuff repair S/P right rotator cuff repair S/P appy H/O eye surgery Left eye prosthesis Cornea replaced by transplant Family History Other Cancer Denies family history of Rheumatoid arthritis Diabetes Lupus CAD (coronary artery disease) Hypertension Social History Smoking and tobacco/nicotine status: never used tobacco/nicotine Alcohol intake: never Vitals/I&O/Wt Last Vital Signs Temp 98.0 F 12/05/24 07:18 Pulse 68 12/05/24 13:00 Resp 17 12/05/24 09:34 BP 119/63 12/05/24 07:14 Pulse Ox 96 12/05/24 13:00 O2 Del Method Room Air 12/05/24 13:00 12/04/24 12/05/24 12/05/24 22:59 06:59 14:59 Intake Total 1050 / 1050 Balance 1050 / 1050 Weight last 48 hrs Weight 122.47 kg Physical Exam Const: COMMON NORMALS: no acute distress and patient oriented x3 Eye: OTHER: Left eye is a prosthetic eye Resp: COMMON NORMALS: normal respiratory effort, No retractions, No use of accessory muscles and clear to auscultation bilaterally AUSCULTATION: clear to auscultation bilaterally Cardio: COMMON NORMALS: regular rate, regular rhythm, S1 normal heart sound present and S2 normal heart sound present RATE: regular rate RHYTHM: regular rhythm HEART SOUNDS: S1 normal heart sound present and S2 normal heart sound present GI: OTHER: Right upper quadrant tenderness to palpation Extremity: COMMON NORMALS: no pedal edema Neuro: COMMON NORMALS: patient oriented x3, CN's II-XII intact bilaterally and moves all extremities Psych: COMMON NORMALS: mental status grossly normal Data 12/05/24 07:30 12/05/24 07:30 A&P Assessment and plan (1) Deep vein thrombosis (DVT) of right lower extremity: (2) Pulmonary embolism: (3) Epistaxis: (4) Acute cholecystitis: (5) Iron deficiency anemia secondary to blood loss (chronic): (6) Acute anemia: Plan Acute cholecystitis CT scan abdomen pelvis CT/CT abdomen pelvis w con* [id number] IMPRESSION: 1. Findings most consistent with acute cholecystitis 2. A benign renal cyst or cysts have been detected. No further follow-up Ultrasound abdomen imaging is required. US/US abdomen limited [id number] IMPRESSION: Acute cholecystitis Plan - IV fluids - IV Zosyn - Liquids, n.p.o. midnight for surgical intervention tomorrow DVT and PE - Back in 2022 - With history of anemia - With history of dietary hemorrhagic telangiectasias - Repeat CT angiogram of the chest on 11/25/2024 did not show any acute PE - Discussed with patient with his acute ongoing anemia hemoglobin 8.3 evidence of iron deficient anemia - Discussed risk and benefits of holding anticoagulation therapy, he wants understanding, all questions answered, agreed to proceed History of hereditary hemorrhagic telangiectasias -With plans on electrocautery of nasal sinus scheduled for Friday Acute anemia - Will order iron studies - Protonix, Carafate - Will consider iron infusions based on clinical progress - Transfuse if hemoglobin less than 7 Recent history of coronary angiogram, no obstructive CAD, EF 55% Check A1c, monitor blood sugars Full code SCDs for DVT prophylaxis PDMP PDMP Reviewed: Not Reviewed Consult Attestations Medical Necessity Statement: Patient requires hospitalization for acute cholecystitis requiring IV antibiotics, possible surgical intervention tomorrow Diagnoses Deep vein thrombosis (DVT) of right lower extremity I82.401 Pulmonary embolism I26.99 Epistaxis R04.0 Acute cholecystitis K81.0 Iron deficiency anemia secondary to blood loss (chronic) D50.0 Acute anemia D64.9
[2024-12-05] MEDS: pantoprazole 40 mg SDV IVP (15:00)
[2024-12-05] MEDS: sucralfate 1 gm/10 mL Oral Liq UDC PO (15:00)
[2024-12-05] MEDS: sodium chlor 0.9% + KCl 20 mEq 20 MEQ/1,000 ML BAG 75 MEQ IV (16:34)
[2024-12-05 17:01] LABS: Glucose Point of Care 111 mg/dL (70-110)
[2024-12-05 18:05] LABS: Ferritin 25 ng/mL (30-400); Iron 10 ug/dL (59-158); Percent Saturation 3.3 % (20-50); Total Iron Binding Capacity 296 mcg/dl; Unsaturated Iron Binding 286 ug/dL (112-347)
[2024-12-05] MEDS: pregabalin 100 mg Capsule PO (18:19)
[2024-12-05 20:22] LABS: Estmated Average Glucose 74; Hemoglobin A1C 4.2 % (4.0-6.0)
[2024-12-05 20:40] LABS: Glucose Point of Care 119 mg/dL (70-110)
[2024-12-05 21:17] LABS: Hematocrit 26.2 % (37-53)
[2024-12-05 21:18] LABS: Reticulocyte % 4.7 % (0.5-2.0)
[2024-12-05] MEDS: tamsulosin 0.4 mg Capsule PO (21:25)
[2024-12-06] VITALS (31 sets, daily range): BP systolic 87–118; BP diastolic 40–81; PULSE 63–89; RESP 10–21; TEMP 36.5–37.4; O2SAT 82–97
[2024-12-06] MEDS: sucralfate 1 gm/10 mL Oral Liq UDC PO (02:37)
[2024-12-06] MEDS: sodium chlor 0.9% + KCl 20 mEq 20 MEQ/1,000 ML BAG 75 MEQ IV (02:37)
[2024-12-06] MEDS: pantoprazole 40 mg SDV IVP (02:37)
[2024-12-06] MEDS: HYDROmorphone 0.5 MG/0.5 ML INJ IVP ×3 (02:44→18:13)
[2024-12-06] MEDS: piperacillin-tazobactam 3.375 GM in sodium chloride 0.9% (plus) 50 ML IV ×3 (04:09→21:16)
[2024-12-06] MEDS: ketorolac 30 mg/mL INJ 15 MG IVP ×2 (04:46→17:20)
[2024-12-06 05:22] LABS: Basophils % 0.2 %; Eosinophils % 0.2 %; Lymphocytes # 0.3 10^3/uL (0.8-4.8); Lymphocytes % 3.2 %; Mean Corpuscular HGB Conc 28.1 g/dL (30-55); Mean Corpuscular Hemoglobin 27.7 pg (27-33); Mean Corpuscular Volume 98.5 fl (82-101); Mean Platelet Volume 10.1 fL (7.4-10.4); Monocytes # 0.4 10^3/uL (0.2-0.9); Monocytes % 4.2 %; Neutrophils # 8.42 10^3/uL (1.8-7.7); Neutrophils % 91.8 %; Nucleated Red Blood Cells % 0 %; Platelet Count 159 10^3/cmm (157-399); Red Blood Count 2.64 10^6/uL (3.85-5.65); Red Cell Distribution Width 16.1 % (12.1-15.1); White Blood Count 9.18 10^3/uL (3.29-11.43)
[2024-12-06 05:42] LABS: Alanine Aminotransferase 8 U/L (0-41); Albumin Level 3.1 g/dL (3.5-5.2); Alkaline Phosphatase 55 U/L (40-130); Anion Gap 13.1 (5-19); Aspartate Amino Transferase 11 U/L (0-40); Blood Urea Nitrogen 16 mg/dL (8-23); Calcium 7.6 mg/dL (8.5-10.5); Carbon Dioxide 23 mmol/L (22-29); Chloride 110 mmol/L (98-107); Creatinine Clr Calc Pharmacy 129.8021; Globulin 2.1 g/dL (1.3-4.6); Glucose 120 mg/dL (65-115); Magnesium 1.9 mg/dL (1.7-2.3); Osmolality Calculated 296 mOsm/kg (285-295); Phosphorus 2.2 mg/dL (2.5-4.5); Potassium 4.1 mmol/L (3.5-5.1); Sodium 142 mmol/L (136-145); Total Bilirubin 0.3 mg/dL (0.15-1.2); Total Protein 5.2 g/dL (6.6-8.7)
[2024-12-06 06:29] LABS: Glucose Point of Care 143 mg/dL (70-110)
--- NOTE | 2024-12-06 06:32 | P.HPUD_ITS ---
Surgery/Procedure H&P Update DATE OF PROCEDURE: December 06, 2024 DATE H&P PERFORMED: 12/05/24 H&P UPDATE INFORMATION: I have reviewed H&P completed within last 30 days, I have examined patient prior to procedure, No changes to prior documentation, H&P is in [facility] EMR on date indicated and Risks and benefits of the procedure reviewed PLANNED PROCEDURE: Operation Date: 12/06/24 11:20 Proposed Procedures p Laparoscopic Cholecystectomy(Not Applicable) - Scout June MD
[2024-12-06] MEDS: pregabalin 100 mg Capsule PO ×2 (08:55→17:20)
[2024-12-06] MEDS: iron sucrose 200 MG in sodium chloride 0.9% (100 ml) 100 ML 220 MG IV (08:55)
--- NOTE | 2024-12-06 10:27 | ECG_ITS ---
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 Measurements Intervals [place] Rate: 88 P: 0 CO: 0 QRS: 10 QRSD: 85 T: 49 QT: 340 QTc: 413 Interpretive Statements SINUS RHYTHM WITH PACs Electronically Signed On 12-07-2024 17:49:31 CDT by Jayson Hansen M.D. [id number]
--- NOTE | 2024-12-06 10:49 | ANES.PREANE2 ---
Pre-Anesthetic Assessment Height/Weight: Height 1.91 m Weight 122.47 kg Temp Pulse Resp BP Pulse Ox O2 Del Method 98.4 F 78 18 98/54 91 Room Air 12/06/24 08:10 12/06/24 08:10 12/06/24 08:10 12/06/24 08:10 12/06/24 08:10 12/05/24 16:00 Operation Date: 12/06/24 11:20 Proposed Procedures p Laparoscopic Cholecystectomy(Not Applicable) - Scout June MD Familial anesthetic complications: None Was Beta Julia taken within 24 hours: N/A Was Clonidine taken within 24 hours: N/A Last intake: Intake Last Liquid Date 12/05/24 Last Liquid Time 07:00 Last Solid Date 12/05/24 Last Solid Time 07:00 Social No alcohol and No tobacco Exam alert, oriented x 3, clear to auscultation bilaterally and regular rate & rhythm Airway Mallampati: Class IV Dentition: full Pulmonary Sleep Apnea CV/HEM Arrythmia (HX PACs, PVCs, holter monitor in chart - Reviewed 11/[address] Conley) PE on apixaban Clear cardiac cath and normal stress test Hereditary hemorragic telangiectasia - nose bleeds Anesthetic Plan ASA status: 3 Anesthesia: General Risk of > 500 ml blood loss (7ml/kg in children): No Medications/Allergies Home Medications ?Medication ?Instructions ?Recorded ?Confirmed ?Last Taken ?Type cyanocobalamin (vitamin B-12) 1,000 mcg PO DAILY 03/30/20 12/05/24 12/04/24 History 1,000 mcg tablet (Vitamin B-12) magnesium 250 mg tablet 250 mg PO DAILY 03/30/20 12/05/24 12/04/24 History multivitamin 1 tab PO DAILY 03/30/20 12/05/24 12/04/24 History pantoprazole 40 mg tablet,delayed 40 mg PO DAILY 01/02/21 12/05/24 12/04/24 History release (Protonix) ascorbic acid (vitamin C) 1,000 mg 1 g PO DAILY 03/04/22 12/05/24 12/04/24 History tablet cholecalciferol (vitamin D3) 25 50 mcg PO DAILY 03/04/22 12/05/24 12/04/24 History mcg (1,000 unit) capsule (Vitamin D3) ferrous sulfate 325 mg (65 mg 650 mg PO DAILY 03/04/22 12/05/24 12/04/24 History iron) tablet (iron) tamsulosin 0.4 mg capsule 0.4 mg PO BEDTIME 03/04/22 12/05/24 12/04/24 History budesonide-formoterol HFA 80 1 inh inhalation BID #10.2 grams 02/27/23 12/05/24 12/04/24 Rx mcg-4.5 mcg/actuation aerosol inhaler (Symbicort) prednisone 5 mg tablet 10 mg (2 x 5 mg) PO .as directed 12/24/23 12/05/24 Unknown Rx PRN Rheumatoid Arthritis 30 days #30 tabs apixaban 2.5 mg tablet (Eliquis) 2.5 mg PO BID #60 tabs 06/02/24 12/05/24 12/04/24 Rx pregabalin 100 mg capsule (Lyrica) 100 mg PO BID #180 caps 06/23/24 12/05/24 12/04/24 Rx abatacept 125 mg/mL subcutaneous 125 mg SUBCUT .Q7days #12 mL 08/23/24 12/05/24 12/01/24 Rx syringe (Orencia) midodrine 10 mg tablet 10 mg PO BID PRN low blood 11/03/24 12/05/24 Unknown Rx pressure #60 tabs fluticasone 250 mcg-salmeterol 50 1 inh inhalation BID 12/05/24 12/05/24 12/04/24 History mcg/dose blistr powdr for inhalation (Advair Diskus) nitroglycerin 0.4 mg sublingual See Rx Instructions .Route .COMPLEX 12/05/24 12/05/24 Unknown History tablet Allergies Allergy/AdvReac Type Severity Reaction Status Date / Time grass pollen-[place], Allergy Severe ALGY-Difficulty Verified 11/03/24 13:05 standard Breathing gabapentin Allergy ADR-Itching Verified 11/03/24 13:05 meperidine (From Demerol) Allergy ADR-Nausea Verified 11/03/24 13:05 Current Medications Generic Name Dose Route Start Last Admin Trade Name Freq PRN Reason Stop Dose Admin Hydromorphone HCl 0.5 mg 12/05/24 14:11 12/06/24 08:59 Hydromorphone 0.5 Mg/0.5 Ml Inj IVP 0.5 mg Q4H PRN Administration PAIN Piperacillin Sod/Tazobactam 50 mls @ 12.5 mls/hr 12/05/24 13:15 12/06/24 08:26 Sod 3.375 gm/ Sodium Chloride IV Infused Q8H SALVADOR Infusion Protocol Potassium Chloride/Sodium Chloride 20 meq in 1,000 mls @ 75 mls/hr 12/05/24 13:15 12/06/24 02:37 Sodium Chlor 0.9% + Kcl 20 Meq IV 75 mls/hr On Hold: 12/06/24 10:19 .[id number] SALVADOR Administration Comment: Order held by Process Transfer Iron Sucrose 200 mg/ Sodium 110 mls @ 220 mls/hr 12/06/24 08:15 12/06/24 10:00 Chloride IV 12/10/24 08:44 Infused Q24H [facility] Infusion Ketorolac Tromethamine 15 mg 12/05/24 13:15 12/06/24 04:46 Ketorolac 30 Mg/Ml Inj IVP 12/10/24 13:14 15 mg Q6H SAL[facility]OR Administration Pantoprazole Sodium 40 mg 12/05/24 14:00 12/06/24 02:37 Pantoprazole 40 Mg Sdv IVP 40 mg Q12H SAL[facility]OR Administration Pregabalin 100 mg 12/05/24 18:00 12/06/24 08:55 Pregabalin 100 Mg Capsule PO 100 mg BID [facility]OR Administration Sucralfate 1 gm 12/05/24 14:00 12/06/24 02:37 Sucralfate 1 Gm/10 Ml Oral Liq Udc PO 1 gm On Hold: 12/06/24 10:19 Q12H SAL[facility]OR Administration Comment: Order held by Process Transfer Tamsulosin HCl 0.4 mg 12/05/24 21:00 12/05/24 21:25 Tamsulosin 0.4 Mg Capsule PO 0.4 mg BEDTIME SALVADOR Administration PFSH Anesthesia Medical History Pulmonary embolism Hereditary hemorrhagic telangiectasia History of pulmonary embolism Iron deficiency anemia secondary to blood loss (chronic) Deep vein thrombosis (DVT) of right lower extremity DDD (degenerative disc disease), lumbar Peripheral neuropathy Traumatic blindness of left eye Seronegative rheumatoid arthritis Immunization counseling Osteoarthritis High risk medication use Surgical History History of nasal cauterization S/P lumbar fusion L4/5 laminectomy with fusion H/O: knee surgery Right knee x 2, left knee x 1 S/P left rotator cuff repair S/P right rotator cuff repair S/P appy H/O eye surgery Left eye prosthesis Cornea replaced by transplant Family History Other Cancer Denies family history of Rheumatoid arthritis Diabetes Lupus CAD (coronary artery disease) Hypertension Social History Smoking and tobacco/nicotine status: never used tobacco/nicotine Alcohol intake: never Data Anesthesia 12/06/24 04:33 12/06/24 04:33 Short CBC 12/05/24 12/05/24 12/06/24 Range/Units 07:30 21:09 04:33 WBC 8.33 9.18 (3.29-11.43) 10^3/uL Hgb 8.30 L 7.40 L 7.30 L (11.27-16.99) g/dL Hct 29.3 L 26.2 L 26.0 L (37-53) % MCV 97.0 98.5 (82-101) fl Plt Count 217 159 (157-399) 10^3/cmm Neut % (Auto) 95.1 91.8 % Neut # (Auto) 7.92 H 8.42 H (1.8-7.7) 10^3/uL BMP 12/05/24 12/06/24 07:30 04:33 Sodium 143 142 Potassium 4.3 4.1 Chloride 107 110 H Carbon Dioxide 24 23 BUN 12 16 Creatinine 0.8 0.8 Glucose 150 H 120 H Calcium 8.5 7.6 L Liver Function 12/05/24 12/06/24 Range/Units 07:30 04:33 Total Bilirubin 0.2 0.3 (0.15-1.2) mg/dL AST 14 11 (0-40) U/L ALT 11 8 (0-41) U/L Alkaline Phosphatase 67 55 (40-130) U/L Albumin 3.8 3.1 L (3.5-5.2) g/dL Cardiac Studies: Echocardiogram 03/14/23 Sestamibi Stress Test (Cardiology) 10/01/24 Holter Monitor 10/25/24
[2024-12-06] MEDS: acetaminophen 1,000 MG/100 ML PIGGYBACK 400 MG IV (11:28)
[2024-12-06] MEDS: BUPivacaine 0.25% INJ 30 mL INJECTION (11:56)
[2024-12-06] MEDS: lidocaine-epi 1% 20 mL INJ INJECTION (11:56)
--- NOTE | 2024-12-06 12:36 | P.PN_ITS ---
Subjective 2 Subjective: Patient was seen this morning, currently alert oriented x 3, following all commands, denies any fevers, chills, cough, nausea, vomiting, we discussed his iron-deficiency anemia, his hemoglobin down to 7.3 will have to monitor him closely, he might require further units PRBC Vitals/I&O/Wt Last Vital Signs Temp 98.4 F 12/06/24 08:10 Pulse 78 12/06/24 08:10 Resp 18 12/06/24 08:10 BP 98/54 12/06/24 08:10 Pulse Ox 91 12/06/24 08:10 O2 Del Method Room Air 12/05/24 16:00 12/05/24 12/06/24 12/06/24 22:59 06:59 14:59 Intake Total 720 / 1770 803.75 / 2573.75 310 / 310 Output Total 900 / 900 Balance 720 / 1770 -96.25 / 1673.75 310 / 310 Weight last 48 hrs Weight 122.47 kg Weight 122.47 kg Physical Exam 2 Const: COMMON NORMALS: no acute distress and patient oriented x3 Resp: COMMON NORMALS: normal respiratory effort, No retractions, No use of accessory muscles and clear to auscultation bilaterally AUSCULTATION: clear to auscultation bilaterally Cardio: COMMON NORMALS: regular rate, regular rhythm, S1 normal heart sound present and S2 normal heart sound present RATE: regular rate RHYTHM: r egular rhythm HEART SOUNDS: S1 normal heart sound present and S2 normal heart sound present GI: COMMON NORMALS: Normal to inspection, nondistended, normoactive bowel sounds present and non-tender Extremity: COMMON NORMALS: no pedal edema Neuro: COMMON NORMALS: patient oriented x3 Psych: COMMON NORMALS: mental status grossly normal Data 12/06/24 04:33 12/06/24 04:33 A&P Assessment and plan (1) Deep vein thrombosis (DVT) of right lower extremity: (2) Pulmonary embolism: (3) Epistaxis: (4) Acute cholecystitis: (5) Iron deficiency anemia secondary to blood loss (chronic): (6) Acute anemia: Plan Acute cholecystitis CT scan abdomen pelvis CT/CT abdomen pelvis w con* [id number] IMPRESSION: 1. Findings most consistent with acute cholecystitis 2. A benign renal cyst or cysts have been detected. No further follow-up Ultrasound abdomen imaging is required. US/US abdomen limited [id number] IMPRESSION: Acute cholecystitis Plan - IV fluids - IV Zosyn - Liquids, n.p.o. midnight for surgical intervention tomorrow DVT and PE - Back in 2022 - With history of anemia - With history of dietary hemorrhagic telangiectasias - Repeat CT angiogram of the chest on 11/25/2024 did not show any acute PE - Discussed with patient with his acute ongoing anemia hemoglobin 8.3 evidence of iron deficient anemia - Discussed risk and benefits of holding anticoagulation therapy, he wants understanding, all questions answered, agreed to proceed History of hereditary hemorrhagic telangiectasias -With plans on electrocautery of nasal sinus scheduled for Friday Acute anemia - Will order iron studies, evidence of iron deficiency anemia - Protonix, Carafate - Receiving IV Venofer -Hemoglobin 7.3, will consider transfusion PRBC based on clinical progress - Transfuse if hemoglobin less than 7 Recent history of coronary angiogram, no obstructive CAD, EF 55% Check A1c, 4.2, monitor blood sugars Full code SCDs for DVT prophylaxis PDMP PDMP Reviewed: Not Reviewed Attestations 2 Medical Necessity Statement*: Patient requires hospitalization for acute cholecystitis, DVT and PE, history of hereditary hemorrhagic plan to change, acute anemia Diagnoses Deep vein thrombosis (DVT) of right lower extremity I82.401 Pulmonary embolism I26.99 Epistaxis R04.0 Acute cholecystitis K81.0 Iron deficiency anemia secondary to blood loss (chronic) D50.0 Acute anemia D64.9
--- NOTE | 2024-12-06 13:29 | PC.NURSE ---
Patient's family member updated on surgical status at 1326
--- NOTE | 2024-12-06 14:43 | PM.OP ---
Operative Report Date of procedure: December 06, 2024 Pre-op diagnosis: Acute cholecystitis Post-op diagnosis: Severe acute cholecystitis Post-op findings: The gallbladder was extremely inflamed the wall of the gallbladder was thickened, the gallbladder was distended and require decompression before it was able to be grabbed, gallbladder was hyperemic there was some inflammatory reactive peritoneal runts on the fundus of the gallbladder. There was severe adhesions from the pericholecystic tissue to the gallbladder. There were adhesions from the periduodenal tissue to the liver. 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 Procedure done: Laparoscopic cholecystectomy (add modifier 22) Surgeon: Scout June MD Estimated blood loss: 100 Complications: None apparent Brief History: 64-year-old male with multiple multiple medical morbidities who presented to the hospital with acute cholecystitis. After discussion risk benefits were decided to proceed to the OR with laparoscopic possible open cholecystectomy. Procedure: Patient was brought into the OR, he was placed in a supine position. General anesthesia was given. The abdomen was prepped and draped in the usual sterile fashion. Timeout was conducted. The abdomen was accessed in the left upper quadrant using a 5 mm Optiview trocar, initial pneumoperitoneum was obtained and no evidence of visceral injury during activity was noted. Total millimeter trocar was placed in the supraumbilical position under direct visualization, this was done carefully to make sure not to disturb the umbilical mesh. Additional 5 mm trocars were placed in the right upper quadrant right flank and epigastrium under direct visualization. The patient was placed in a steep reverse Trendelenburg with the left side down. The fundus of the gallbladder was identified but he was extremely distended unable to be grasped. With the help of a decompression needle I removed about 70 cc of thick bile from the gallbladder. At this point I was able to press the fundus and elevated. There was severe adhesions of the pericholecystic tissue to the gallbladder, I took down these additions bluntly to the level of the infundibulum but after this it was almost impossible to identify the anatomy due to the severe inflammation at the level of the infundibulum. I did realize that there was some adhesions from the periduodenal tissue with the liver on the medial aspect of the gallbladder, I carefully took those adhesions down using blunt dissection and after that I was able to better visualize the infundibulum of the gallbladder with careful blunt dissection I was able to take down additional adhesions from the periduodenal and pericolonic tissue to the infundibulum of the gallbladder. A large blood vessel was noted to be going on the medial direction anterior to the hepatocystic triangle which most likely corresponded to the right hepatic artery. I then started by opening the peritoneum anterior to the infundibulum of the gallbladder using electrocautery, I carried this opening in the medial and lateral direction to the edges of the liver and then on the sides of the gallbladder to improve visualization. With careful blunt dissection I was able to push down the pericholecystic tissue until I was able to identify the hepatocystic triangle. Once I was at this level I used careful blunt dissection to encircle the cystic artery that appeared to be branching off the previously identified right hepatic artery. Due to the severe inflammation at this point it was apparent that I was not going to be able to achieve a true clinical view of safety and therefore I decided to takedown the cystic artery to allow for better visualization. I double clipped the cystic artery proximally and then single clipped distally and transected. I was then able to peel down the right hepatic artery from the hepatocystic triangle creating better visualization and with this better visualization I was able to carefully encircle the cystic duct and elevated lower third of the gallbladder from the liver bed. At this point once I had a clear understanding of the anatomy proceeded to double clipped distally single clipped proximally the cystic duct and transected. The gallbladder was severely inflamed and it was very difficult to resected from the liver. A hole in the posterior wall was made during resection causing leakage of bile and stones. Once the gallbladder was completely resected I removed the specimen in an Endo Catch bag through the umbilical trocar site. I then proceeded to evaluate the liver bed that appeared healthy with no bleeding and no evidence of bile leak. All the bile and stones that had spilled during removal of the gallbladder were completely removed from the abdomen. I then irrigated the gallbladder bed and freda-cholecystic tissue with about 5 L of saline and aspirated the saline. Upon further inspection of the gallbladder bed there was no evidence of any bleeding, I checked again the clips were in good position with no evidence of bile leaking. The periduodenal tissue also appeared healthy. At this point I removed umbilical trocar and closed the umbilical trocar site with a Solitario-Lulu suture passer and a 0 Vicryl under direct visualization. I then remove the epigastrium right upper quadrant right flank trocars under direct visualization, the left upper quadrant trocar was used to evacuate the pneumoperitoneum and subsequently removed. The wounds were irrigated. Hemostasis was achieved. Local anesthesia was infiltrated. The wounds were closed in layers using #3-0 Vicryl for the subcutaneous tissue #4 Monocryl for the skin. At the end of the procedure all counts were correct, the patient tolerated well the procedure was transferred to patient in stable condition. This procedure was significantly more difficult than the average cholecystectomy recording by maximum level of skills and a prolonged operative time.
--- NOTE | 2024-12-06 16:30 | ANE.PACU2 ---
Inpatient post-anesthesia follow up: Airway intact: Yes Vital signs: Temperature 98.7 F Pulse Rate 66 Respiratory Rate 14 Blood Pressure 94/53 Pulse Oximetry 82 Oxygen Delivery Me thod Simple Mask Oxygen Flow Rate 10 Fraction of Inspir ed Oxygen Hydration adequate: Yes Nausea and vomiting: No Pain level: 1 Mental status: Baseline Additional Comments: Satting low 80s to low 90s on 2 NC, improved to 98% with simple mask. O2 sats were 88% upon bringing him down for surgery. Will send to floor with simple mask and continuous pulse oximetry monitoring. Discussed this disposition with Dr. Conley.
[2024-12-06 16:46] LABS: Glucose Point of Care 152 mg/dL (70-110)
--- NOTE | 2024-12-06 16:59 | XRR_ITS ---
PROCEDURE INFORMATION: Exam: XR Chest Exam date and time: 12/06/2024 6:20 PM Age: 64 years old Clinical indication: Shortness of breath; Additional info: SOB TECHNIQUE: Imaging protocol: Radiologic exam of the chest. Views: 1 view. COMPARISON: CT angio chest PE protcl [id number] 11/25/2024 4:16 PM FINDINGS: Lungs: Unremarkable. No consolidation. Pleural spaces: Unremarkable. No pleural effusion. No pneumothorax. Heart/Mediastinum: Unremarkable. No cardiomegaly. Bones/joints: Unremarkable. XR/XR chest 1V portable [id number] IMPRESSION: No acute findings.
[2024-12-06 17:04] LABS: Hematocrit 25.1 % (37-53)
--- NOTE | 2024-12-06 17:16 | PC.NURSE ---
Patient unable to maintain above 90% O2 on 3LNC. Dr. Bryan notified - simple mask placed on patient.
--- NOTE | 2024-12-06 17:17 | PC.NURSE ---
1615 - Dr. Bryan at bedside - nm to transport patient to floor on simple mask. Continuous pulse ox orders received for floor.
[2024-12-06 17:51] LABS: NT Pro B Type Natriuretic Pept 374 pg/mL (0-125)
[2024-12-06] MEDS: midodrine 5 mg TABLET PO ×2 (18:13→21:17)
--- NOTE | 2024-12-06 19:00 | USCV_ITS ---
Geovanni Vicente Age: 64 Gender: M : 1960 Exam Date: 12/06/2024 23:06 Ordering Phys: Marvel Conley MD Technologist: DALY Exam Location: [facility] – [place] Indication: swelling History of RLE DVT 2022 per patient. HISTORY: swelling History of RLE DVT 2022 per patient. PROCEDURES: Venous duplex imaging was performed in bilateral lower extremities. The following venous structures were evaluated: common femoral vein, profunda vein, proximal portion of the greater saphenous vein, superficial femoral vein, and the popliteal vein. In addition, the posterior tibial and peroneal veins were evaluated. FINDINGS: Normal 2-D Doppler and augmentation and compressibility throughout the lower extremity venous structures. Additional imaging through the proximal calf veins also reveals no thrombus. Limited evaluation of the greater saphenous vein is patent with no thrombus. CONCLUSIONS No DVT bilateral lower extremities. Dr. Sarita Bruce DO (Electronically Signed) Final Date: 07 December 2024 12:50 S
--- NOTE | 2024-12-06 19:00 | USCV_ITS ---
Vicente Galarza Age: 64 Gender: M : 1960 Exam Date: 12/06/2024 23:40 Ordering Phys: Marvel Conley MD Technologist: DALY [place] [facility] [place]: shortness of breath post-op lapchole today BP: 90 / 53 HR: 72 Rhythm: Sinus Technical Quality: Adequate MEASUREMENTS (Male / Female) Normal Values 2D ECHO LV Diastolic Diameter PLAX 6.4 cm 4.2 - 5.9 / 3.9 - 5.3 cm IVS Diastolic Thickness 1.4 cm 0.6 - 1.0 / 0.6 - 0.9 cm IVS Systolic Thickness 1.7 cm LVPW Diastolic Thickness 1.4 cm 0.6 - 1.0 / 0.6 - 0.9 cm LVPW Systolic Thickness 2.2 cm LVOT Diameter 2.3 cm LV Ejection Fraction 2D Teich 64.5 % LV Ejection Fraction MOD 4C 54.5 % LV Ejection Fraction MOD 2C 65.8 % LV Ejection Fraction 2C AL 67.8 % LA Diameter 5.5 cm Aorta at Sinotubular Diameter 3.1 cm IVC Diameter 2.1 cm M-MODE LA Ao Ratio MM 1.2 AV Cusp Separation MM 2.0 cm DOPPLER AV Peak Velocity 185.0 cm/s LVOT Peak Velocity 122.0 cm/s AV Area Cont Eq vti 3.8 cm squared AV Area Cont Eq pk 2.8 cm squared MV Peak Velocity 88.0 cm/s MV Area PHT 4.1 cm squared Mitral E to A Ratio 1.4 TV Peak E Velocity 71.0 cm/s PV Peak Velocity 89.0 cm/s FINDINGS Left Ventricle Left ventricle is normal in size. LV systolic function is normal with EF of 55-60%. No regional wall motion abnormalities are seen. Right Ventricle Normal in size and function Right Atrium Normal in size Left Atrium Normal in size Mitral Valve Grossly normal. Mild mitral regurgitation Aortic Valve Grossly normal. No significant stenosis or regurgitation Tricuspid Valve Inadequate TR jet to calculate RVSP Pulmonic Valve Not well visualized Pericardium Normal Aorta Normal in size IVC Not well visualized CONCLUSIONS LV systolic function is normal with EF 55 to 60%. Mild mitral regurgitation. Compared to prior echocardiogram from 2022, no significant changes are seen. Jayson Hansen MD (Electronically Signed) Final Date: 07 December 2024 12:21 S
[2024-12-06 20:32] LABS: Glucose Point of Care 305 mg/dL (70-110)
[2024-12-06] MEDS: tamsulosin 0.4 mg Capsule PO (21:17)
[2024-12-07 00:33] VITALS: BP 122/70; PULSE 84; RESP 16; TEMP 37.1; O2SAT 92
[2024-12-07] MEDS: pantoprazole 40 mg SDV IVP (01:38)
[2024-12-07] MEDS: HYDROmorphone 0.5 MG/0.5 ML INJ 0.4 MG IVP ×2 (01:38→05:50)
[2024-12-07] MEDS: sucralfate 1 gm/10 mL Oral Liq UDC PO (01:38)
[2024-12-07] MEDS: piperacillin-tazobactam 3.375 GM in sodium chloride 0.9% (plus) 50 ML IV (03:36)
[2024-12-07 04:12] VITALS: BP 102/68; PULSE 87; RESP 17; TEMP 36.6; O2SAT 94
[2024-12-07 06:10] LABS: Basophils % 0.1 %; Hematocrit 25.7 % (37-53); Lymphocytes # 0.2 10^3/uL (0.8-4.8); Lymphocytes % 2.4 %; Mean Corpuscular HGB Conc 28.8 g/dL (30-55); Mean Corpuscular Hemoglobin 28.5 pg (27-33); Mean Corpuscular Volume 98.8 fl (82-101); Mean Platelet Volume 10.8 fL (7.4-10.4); Monocytes # 0.4 10^3/uL (0.2-0.9); Monocytes % 4.2 %; Neutrophils # 8.83 10^3/uL (1.8-7.7); Neutrophils % 92.8 %; Nucleated Red Blood Cells % 0 %; Platelet Count 158 10^3/cmm (157-399); Red Cell Distribution Width 16.8 % (12.1-15.1); White Blood Count 9.52 10^3/uL (3.29-11.43)
[2024-12-07 06:30] LABS: Glucose Point of Care 161 mg/dL (70-110)
[2024-12-07 06:45] LABS: Alanine Aminotransferase 49 U/L (0-41); Albumin Level 3.2 g/dL (3.5-5.2); Alkaline Phosphatase 60 U/L (40-130); Anion Gap 12.4 (5-19); Aspartate Amino Transferase 49 U/L (0-40); Blood Urea Nitrogen 17 mg/dL (8-23); Calcium 8.3 mg/dL (8.5-10.5); Carbon Dioxide 25 mmol/L (22-29); Chloride 108 mmol/L (98-107); Creatinine Clr Calc Pharmacy 115.3796; Globulin 2.3 g/dL (1.3-4.6); Glomerular Filtration Rate 84.7 mL/min (90-130); Glucose 122 mg/dL (65-115); NT Pro B Type Natriuretic Pept 930 pg/mL (0-125); Osmolality Calculated 295 mOsm/kg (285-295); Potassium 4.4 mmol/L (3.5-5.1); Sodium 141 mmol/L (136-145); Total Bilirubin 0.7 mg/dL (0.15-1.2); Total Protein 5.5 g/dL (6.6-8.7)
[2024-12-07 07:24] VITALS: BP 103/60; PULSE 69; RESP 17; TEMP 36.8; O2SAT 90
[2024-12-07 08:30] VITALS: PULSE 78; RESP 18; O2SAT 90
[2024-12-07] MEDS: potassium chloride ER 20 mEq Tablet PO (08:55)
[2024-12-07] MEDS: pregabalin 100 mg Capsule PO (08:56)
[2024-12-07] MEDS: FUROsemide 10 mg/mL SDV 2mL 20 MG IVP (08:56)
[2024-12-07] MEDS: midodrine 5 mg TABLET PO (08:56)
--- NOTE | 2024-12-07 10:57 | P.DS_ITS ---
Discharge Providers Date of Admission: 12/05/24 14:00 Date of Discharge: December 07, 2024 Attending Provider at Admission: Scout June MD Attending Provider at Discharge: Scout June MD Primary Care Provider: Katie Fu Diagnoses at Discharge Discharge Diagnosis (1) Deep vein thrombosis (DVT) of right lower extremity: Status: Acute (2) Pulmonary embolism: Status: Acute (3) Epistaxis: Status: Acute (4) Acute cholecystitis: Status: Acute (5) Iron deficiency anemia secondary to blood loss (chronic): Status: Acute (6) Acute anemia: Status: Acute Reason for Visit Reason for Visit: [place] Hospital Course Hospital Course Is a 64-year-old male who presented to the hospital with acute cholecystitis. He also noted to have iron deficiency anemia. Patient was admitted and taken to the OR for laparoscopic cholecystectomy, this was done without complications. By postoperative day 1 patient was tolerating diet and ambulating. Adequate pain control. He will be allowed to transition to the outpatient setting and follow-up in the surgery clinic in 2 weeks. In addition patient has been evaluated by the medical team, additional workup will be needed for his iron deficiency anemia, he is pending outpatient follow-up with hematology oncology. Physical Exam GI: OTHER: Abdominal examination is benign the abdomen is soft there is tenderness in the right upper quadrant which is appropriate and surgical incisions are clean and dry Discharge Data Studies Completed and Pending Completed Studies During Hospitalization Category Date Time Status CT abdomen pelvis w con* [id number] Stat Cat Scan 12/05/24 09:20 Completed XR chest 1V portable [id number] Routine Exams 12/06/24 16:59 Completed US abdomen limited [id number] Stat Ultrasound 12/05/24 10:35 Completed Pending at discharge Category Date Time Status NT Pro B Type Natriuretic Pept QAM Lab 12/08/24 06:00 Ordered NT Pro B Type Natriuretic Pept QAM Lab 12/09/24 06:00 Ordered Occult Blood Stool [Immunochemical Fecal OCB] Routine Lab 12/05/24 14:14 Uncollected Occult Blood Stool [Immunochemical Fecal OCB] Routine Lab 12/05/24 17:33 Uncollected Pathology: Surgical [PTH] Routine Pth 12/06/24 13:54 [place] [id number] Routine Ultrasound 12/06/24 19:00 Taken CV. echo complete* [id number] Routine Ultrasound 12/06/24 19:00 Taken Radiology Impressions Abdomen/Pelvis CT 12/05/24 09:20 IMPRESSION: 1. Findings most consistent with acute cholecystitis 2. A benign renal cyst or cysts have been detected. No further follow-up imaging is required. COMMENTS: Consistent with the [employer]'s Incidental Findings Committee white paper (J Am Eleni Radiol 2018): Any incidental renal lesion less than 1 cm or classified as too small to characterize, or any incidental cystic renal lesion characterized as simple-appearing, is likely benign. No follow-up imaging is recommended for these lesions per consensus recommendations based on imaging criteria. Abdomen Ultrasound 12/05/24 10:35 IMPRESSION: Acute cholecystitis Chest X-Ray 12/06/24 16:59 IMPRESSION: No acute findings. Laboratory Results WBC 9.52 10^3/uL (3.29-11.43) 12/07/24 05:45 RBC 2.60 10^6/uL (3.85-5.65) L 12/07/24 05:45 Hgb 7.40 g/dL (11.27-16.99) L 12/07/24 05:45 Hct 25.7 % (37-53) L 12/07/24 05:45 MCV 98.8 fl (82-101) 12/07/24 05:45 MCH 28.5 pg (27-33) 12/07/24 05:45 MCHC 28.8 g/dL (30-55) L 12/07/24 05:45 RDW 16.8 % (12.1-15.1) H 12/07/24 05:45 Plt Count 158 10^3/cmm (157-399) 12/07/24 05:45 MPV 10.8 fL (7.4-10.4) H 12/07/24 05:45 Neut % (Auto) 92.8 % 12/07/24 05:45 Lymph % (Auto) 2.4 % 12/07/24 05:45 [place] % (Auto) 4.2 % 12/07/24 05:45 Eos % (Auto) 0.0 % 12/07/24 05:45 Baso % (Auto) 0.1 % 12/07/24 05:45 Reticulocyte % (Auto) 4.7 % (0.5-2.0) H 12/05/24 21:09 Neut # (Auto) 8.83 10^3/uL (1.8-7.7) H 12/07/24 05:45 Lymph # (Auto) 0.2 10^3/uL (0.8-4.8) L 12/07/24 05:45 [place] # (Auto) 0.4 10^3/uL (0.2-0.9) 12/07/24 05:45 Eos # (Auto) 0.0 10^3/uL (0.0-0.8) 12/07/24 05:45 Baso # (Auto) 0.0 10^3/uL (0.0-0.1) 12/07/24 05:45 Nucleated RBC % (auto) 0 % 12/07/24 05:45 Nucleated RBCs # 0.0 /100WBC 12/07/24 05:45 Sodium 141 mmol/L (136-145) 12/07/24 05:45 Potassium 4.4 mmol/L (3.5-5.1) 12/07/24 05:45 Chloride 108 mmol/L (98-107) H 12/07/24 05:45 Carbon Dioxide 25 mmol/L (22-29) 12/07/24 05:45 Anion Gap 12.4 (5-19) 12/07/24 05:45 BUN 17 mg/dL (8-23) 12/07/24 05:45 Creatinine 0.9 mg/dL (0.7-1.2) 12/07/24 05:45 GFR Calculation 84.7 mL/min (90-130) L 12/07/24 05:45 Glucose 122 mg/dL (65-115) H 12/07/24 05:45 POC Glucose 161 mg/dL (70-110) H 12/07/24 06:27 Estimat Average Glucose 74 12/05/24 07:30 Hemoglobin A1c 4.2 % (4.0-6.0) 12/05/24 07:30 Calculated Osmolality 295 mOsm/kg (285-295) 12/07/24 05:45 Calcium 8.3 mg/dL (8.5-10.5) L 12/07/24 05:45 Phosphorus 2.2 mg/dL (2.5-4.5) L 12/06/24 04:33 Magnesium 1.9 mg/dL (1.7-2.3) 12/06/24 04:33 Iron 10 ug/dL (59-158) L 12/05/24 07:30 TIBC 296 mcg/dl 12/05/24 07:30 % Saturation 3.3 % (20-50) L 12/05/24 07:30 Unsat Iron Binding 286 ug/dL (112-347) 12/05/24 07:30 Ferritin 25 ng/mL (30-400) L 12/05/24 07:30 Total Bilirubin 0.7 mg/dL (0.15-1.2) 12/07/24 05:45 AST 49 U/L (0-40) H 12/07/24 05:45 ALT 49 U/L (0-41) H 12/07/24 05:45 Alkaline Phosphatase 60 U/L (40-130) 12/07/24 05:45 NT-Pro-B Natriuret Pep 930 pg/mL (0-125) H 12/07/24 05:45 Total Protein 5.5 g/dL (6.6-8.7) L 12/07/24 05:45 Albumin 3.2 g/dL (3.5-5.2) L 12/07/24 05:45 Globulin 2.3 g/dL (1.3-4.6) 12/07/24 05:45 Lipase 25 U/L (13-60) 12/05/24 07:30 Blood Type A Positive 12/06/24 16:37 Rho(D) Type Rh positive 12/06/24 16:37 Antibody Screen Negative 12/06/24 16:37 Crossmatch See Detail 12/06/24 16:37 Vitals Last Vital Signs Temp 98.3 F 12/07/24 07:24 Pulse 78 12/07/24 08:30 Resp 18 12/07/24 08:30 BP 103/60 12/07/24 07:24 Pulse Ox 90 12/07/24 08:30 O2 Del Method Room Air 12/07/24 08:30 O2 Flow Rate 2 12/06/24 20:00 Discharge Plan Discharge Patient Disposition: Home Condition: Stable Prescriptions: New polyethylene glycol 3350 [Miralax] 17 gram powder in packet 17 g PO DAILY 7 Days Qty: 7 0RF amoxicillin-pot clavulanate 875-125 mg tablet 1 tab PO BID 7 Days Qty: 14 0RF oxycodone 5 mg tablet 5 mg PO Q8H PRN (Reason: pain) 7 Days Qty: 14 0RF pantoprazole [Protonix] 40 mg tablet,delayed release (DR/EC) 40 mg PO BID 30 Days Qty: 60 0RF sucralfate [Carafate] 1 gram tablet 1 g PO BID 28 Days Qty: 56 0RF Venofer 200 mg iron/10 mL solution 200 mg IV Q48H 2 Days Qty: 10 0RF Rx Instructions: administer over 2-5 mins Continued pantoprazole [Protonix] 40 mg tablet,delayed release (DR/EC) 40 mg PO DAILY ascorbic acid (vitamin C) 1,000 mg tablet 1 g PO DAILY tamsulosin 0.4 mg capsule 0.4 mg PO BEDTIME prednisone 5 mg tablet 10 mg PO .as directed PRN (Reason: Rheumatoid Arthritis ) 30 Days Qty: 30 1RF Rx Instructions: Take 10 mg daily for 3-4 days for arthritis flare up. midodrine 10 mg tablet 10 mg PO BID PRN (Reason: low blood pressure ) Qty: 60 0RF Rx Instructions: do not give last dose of day after 6PM or within 4 hrs of bedtime pregabalin [Lyrica] 100 mg capsule 100 mg PO BID Qty: 180 1RF budesonide-formoterol [Symbicort] 80-4.5 mcg/actuation HFA aerosol inhaler 1 inh inhalation BID Qty: 10.2 6RF multivitamin Tablet 1 tab PO DAILY cyanocobalamin (vitamin B-12) [Vitamin B-12] 1,000 mcg Tablet 1,000 mcg PO DAILY magnesium 250 mg Tablet 250 mg PO DAILY Vitamin D3 25 mcg (1,000 unit) capsule 50 mcg PO DAILY iron 325 mg (65 mg iron) tablet 650 mg PO DAILY fluticasone propion-salmeterol [Advair Diskus] 250-50 mcg/dose blister with device 1 inh INHALATION BID nitroglycerin 0.4 mg tablet, sublingual See Rx Instructions .ROUTE .COMPLEX Rx Instructions: DISSOLVE 1 TABLET UNDER THE TONGUE EVERY 5 MINUTES NEEDED FOR CHEST PAIN. DO NOT EXCEED A TOTAL OF 3 DOSES IN 15 MINUTES. Held Eliquis 2.5 mg tablet 2.5 mg PO BID Qty: 60 3RF Hold Instructions: Resume on 12/16/24. hold until you see dr mejias Oreujan 125 mg/mL syringe 125 mg SUBCUT .Q7days Qty: 12 3RF Hold Instructions: Resume on 12/21/24. Rx Instructions: takes on wednesdays Discharge Orders: Discharge Order (Routine); Ordered 12/07/24 Ordered By: Marvel Conley Referrals: Scout June MD [Physician, General Surgery] - 12/21/24 9:55 am Katie Fu PA [Primary Care Provider, [facility]] - 12/14/24 10:20 am Discharge Diet: As Directed Discharge Activity: Resume usual activity Patient Instructions: Amoxicillin/Clavulanate Potassium (By mouth), Oxycodone, Rapid Release (By mouth), Acute Wound Care (DC), Laparoscopic Cholecystectomy (GEN), Opioid Safety, Post Anesthesia Care Activity Restrictions/Additional Instructions: - Please follow-up with Dr. Crook on December 16 - Have Dr. Crook check your hemoglobin level on discharge at 7.4 - You might require transfusion of PRBC if your hemoglobin is less than 7 - If you feel lightheaded or dizzy please come back to the emergency room - I have set up iron infusions for you, 1 on Friday, 1 on Friday - Have Dr. Crook recheck your iron levels in 1 month - We have held your Eliquis on discharge until you follow-up with Dr. Crook and recheck hemoglobin levels - You have an increased risk of hypercoagulable events including deep vein thrombosis and pulmonary embolism and cardiac event - Please continue to remain ambulatory - Every hour do calf exercises - If you develop calf pain or calf swelling or chest pain or sudden onset shortness of breath immediately call 911 - You might require an EGD and colonoscopy in the next few weeks based upon your hemoglobin trend General Surgery instructions: Please do not lift anything heavier than 10 pounds, for the next 4 to 6 weeks. You can walk is much as possible, this will help you recover faster. You can shower starting the day after tomorrow, let soap and water run over your wound and then pat dry. Please take your medication as indicated if you are taking opioids please do not forget to take a stool softener Warning signs: Return to the hospital if you have fever, chills, severe abdominal pain that is getting worse over time despite your pain medication or if your eyes or skin are turning yellow Discharge Attestations Time Spent in Discharge Care*: less than 30 min Quality Metrics Clinical Quality Measures [ No reported AMI, CVA or VTE this stay] Coding Level of Care Code Acute Code for Chg Fwd Diagnoses Deep vein thrombosis (DVT) of right lower extremity I82.401 Pulmonary embolism I26.99 Epistaxis R04.0 Acute cholecystitis K81.0 Iron deficiency anemia secondary to blood loss (chronic) D50.0 Acute anemia D64.9
[2024-12-07] MEDS: iron sucrose 200 MG in sodium chloride 0.9% (100 ml) 100 ML 220 MG IV (10:58)
[2024-12-07 10:59] VITALS: RESP 18
[2024-12-07] MEDS: oxyCODONE-APAP 5-325 mg Tablet 1 TAB PO (10:59)
[2024-12-07 11:02] LABS: Glucose Point of Care 145 mg/dL (70-110)
[2024-12-07 11:10] VITALS: BP 121/56; PULSE 72; RESP 17; TEMP 36.8; O2SAT 91
--- NOTE | 2024-12-07 11:21 | PC.SOCIAL ---
Iron IV Venofer 200mg infusion for friday and friday, faxed to Outpatient IV infusion at this time.
--- NOTE | 2024-12-07 11:25 | P.PN_ITS ---
Subjective 2 Subjective: Patient was seen this morning, currently alert oriented x 3, following all commands, he is on room air, denies any nausea, no vomiting, no diarrhea, no chest pain, no palpitations, no calf pain, no calf swelling no hemoptysis -Events of yesterday, before surgery yes terday he had episodes of possible A- fib, EKG read atrial fibrillation however I reviewed the EKG he has P waves I do not believe it is atrial fibrillation, he has not had any A-fib events overnight - I had a detailed discussion with the p atient - We discussed his anticoagulant therapy - Patient is on Eliquis 2.5 mg twice chapo ly - He has a history of pulmonary embolism many years ago after back surgery -He does tell me that the PEs were in gianluca th lungs and there were extensive, but considered provoked after his back surgery - He also subsequently developed a DVT a fter knee surgery a few years ago, and was in the right lower extremity - He had a CT angiogram of the chest 11/15 which did not show PE - Venous ultrasound has been ordered to rule out DVT -These were provoked DVTs, denies a hist ory of hereditary hypercoagulability -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 -He has had family members have heredita ry hemorrhagic telangiectasia, he had 1 family member of an AV malformation in their spleen bleeding - The question is do we put him on antic oagulant therapy after surgery - He is hemoglobin is down to 7.3 despit e giving 1 unit PRBC although he denies any bloody or black stools, and he has evidence of iron deficiency anemia - Certainly this is a difficult situatio n I have already given 1 unit of PRBC, he has been on Protonix, Carafate - It has been sometime since he has had an EGD and colonoscopy, which he will need in the near future - On the one hand he has an increased ri sk of DVTs and PEs and hypercoagulable vents given his recent cholecystectomy, - But on the other hand he has high risk of risk of bleeding, morbidity and mortality associated with his anemia, artificial anemia - I have had a detailed discussion with him and his about the risk and benefits of all options, shared decision making - Patient and voiced understanding, all questions answered, agreed to hold Eliquis therapy for now - Discussed doing calf exercises, contin ue to be mobile, to decrease risk of DVTs - We we will discharge home on aspirin 8 1 mg, Protonix, Carafate - Discharge him on IV Venofer, 2 more tr eatments - If he develops bloody or black stools, or lightheadedness or dizziness to go to the emergency room - Follow with Dr. Crook December 16 for reche ck hemoglobin he might require further blood transfusions based on clinical progress - If he does develop chest pain or calf pain or calf swelling with sudden onset shortness of breath or hemoptysis to immediately call 911 - Decision if and when to resume anticoa gulant therapy will be based upon shared decision making with patient follows up with Dr. Crook on December 16 - If hemoglobin remains low I would wendy mmend for Eliquis therapy to be held - But if his hemoglobin is reasonable ce rtainly putting him back on Eliquis therapy would be reasonable, his to hypercoagulable events that have happened in his life were both provoked, the only concern would be is is that his pulmonary embolism that he developed after his back surgery was extensive in both lungs he tells me, but nonetheless his repeat CTA on 11/25/2024 was negative for PE Vitals/I&O/Wt Last Vital Signs Temp 98.2 F 12/07/24 11:10 Pulse 72 12/07/24 11:10 Resp 17 12/07/24 11:10 BP 121/56 12/07/24 11:10 Pulse Ox 91 12/07/24 11:10 O2 Del Method Room Air 12/07/24 11:10 O2 Flow Rate 2 12/06/24 20:00 12/06/24 12/07/24 12/07/24 22:59 06:59 14:59 Intake Total 1850.417 / 2760.417 654.583 / 3415.000 290 / 290 Output Total 480 / 580 900 / 1480 Balance 1370.417 / 2180.417 -245.417 / 1935.000 290 / 290 Weight last 48 hrs Weight 122.47 kg Weight 122.47 kg Physical Exam 2 Const: COMMON NORMALS: no acute distress and patient oriented x3 Resp: COMMON NORMALS: normal respiratory effort, No retractions, No use of accessory muscles and clear to auscultation bilaterally AUSCULTATION: clear to auscultation bilaterally Cardio: COMMON NORMALS: regular rate, regular rhythm, S1 normal heart sound present and S2 normal heart sound present RATE: regular rate RHYTHM: r egular rhythm HEART SOUNDS: S1 normal heart sound present and S2 normal heart sound present GI: OTHER: Surgical site with clean and dry Extremity: COMMON NORMALS: no pedal edema Neuro: COMMON NORMALS: patient oriented x3 Psych: COMMON NORMALS: mental status grossly normal Data 12/07/24 05:45 12/07/24 05:45 A&P Assessment and plan (1) Deep vein thrombosis (DVT) of right lower extremity: (2) Pulmonary embolism: (3) Epistaxis: (4) Acute cholecystitis: (5) Iron deficiency anemia secondary to blood loss (chronic): (6) Acute anemia: Plan Acute cholecystitis CT scan abdomen pelvis CT/CT abdomen pelvis w con* [id number] IMPRESSION: 1. Findings most consistent with acute cholecystitis 2. A benign renal cyst or cysts have been detected. No further follow-up Ultrasound abdomen imaging is required. US/US abdomen limited [id number] IMPRESSION: Acute cholecystitis - Status post laparoscopic cholecystectomy Plan - Discharged on p.o. antibiotics - Transition diet DVT and PE - Back in 2022 - With history of anemia - With history of dietary hemorrhagic telangiectasias - Repeat CT angiogram of the chest on 11/25/2024 did not show any acute PE - Discussed risk and benefits of holding anticoagulation therapy, he voices understanding, all questions answered, agreed to proceed History of hereditary hemorrhagic telangiectasias -With plans on electrocautery of nasal sinus scheduled for Friday Acute anemia - Will order iron studies, evidence of iron deficiency anemia - Protonix, Carafate - Receiving IV Venofer, 2 more doses to be set up as outpatient -Hemoglobin 7.4, status post 1 unit PRBC - Transfuse if hemoglobin less than 7, monitor hemoglobin as outpatient Recent history of coronary angiogram, no obstructive CAD, EF 55% Check A1c, 4.2, monitor blood sugars Full code SCDs for DVT prophylaxis PDMP PDMP Reviewed: Not Reviewed Attestations 2 Medical Necessity Statement*: Patient will be discharged today Diagnoses Deep vein thrombosis (DVT) of right lower extremity I82.401 Pulmonary embolism I26.99 Epistaxis R04.0 Acute cholecystitis K81.0 Iron deficiency anemia secondary to blood loss (chronic) D50.0 Acute anemia D64.9
== END 2024-12-07 13:15 | disposition home or self-care (01) ==
LOC: ER 13:02 → MEDSURG 14:26
PROVIDERS: Family Medicine; Admitting Provider Surgery; Emergency Provider Emergency Medicine; PCP Physician Assistant; Visit Provider Surgery
PROC: 0FT44ZZ Resection of Gallbladder, Percutaneous Endoscopic Approach (ICD-10-PCS; CPT 47562; principal; 2024-12-06 11:10)
DX: K80.10 Calculus of gallbladder with chronic cholecystitis without obstruction (principal); I82.401 Acute embolism and thrombosis of unspecified deep veins of right lower extremity; I26.99 Other pulmonary embolism without acute cor pulmonale; R04.0 Epistaxis; D50.0 Iron deficiency anemia secondary to blood loss (chronic); I49.9 Cardiac arrhythmia, unspecified; G47.30 Sleep apnea, unspecified; K21.9 Gastro-esophageal reflux disease without esophagitis
CPT/HCPCS: 47562; 36415; 36416; 36430; 71045; 74177; 76705; 80053; 82728; 82962; 83036; 83540; 83550; 83690; 83735; 83880; 84100; 85014; 85018; 85025; 85045; 86850; 86900; 86920; 88304; 93005; 93306; 93970; 96365; 96366; 96367; 96375; 99285; A4216; G0378; J0131; J1171; J1756; J1885; J1938; J2270; J2405; J2470; J2543; J3480; J3490; J7030; J9999; P9016; P9045

== ENCOUNTER 2024-12-10 10:54 | Oncology outpatient (recurring) (ONCR) | payer MEDICARE, SELFPAY ==
[2024-12-08] MEDS: iron sucrose 200 MG in sodium chloride 0.9% (100 ml) 100 ML 220 MG IV (11:40)
[2024-12-08 12:30] VITALS: BP 117/78; PULSE 67; O2SAT 94
[2024-12-10] MEDS: iron sucrose 200 MG in sodium chloride 0.9% (100 ml) 100 ML 220 MG IV (10:52)
[2024-12-10 11:37] VITALS: BP 126/69; PULSE 62; RESP 17; TEMP 36.6; O2SAT 97
== END 2024-12-13 23:59 | disposition home or self-care (01) ==
PROVIDERS: PCP Physician Assistant; Visit Provider Internal Medicine
DX: Z53.9 Procedure and treatment not carried out, unspecified reason; D50.0 Iron deficiency anemia secondary to blood loss (chronic); Z79.899 Other long term (current) drug therapy
CPT/HCPCS: 96365; J1100; J1756; J2250; J2405; J2704; J3010; J3490

== ENCOUNTER 2024-12-16 12:55 | Oncology outpatient (recurring) (ONCR) | payer MEDICARE, SELFPAY ==
[2024-12-16 13:24] LABS: Hematocrit 32.2 % (37-53); Hemoglobin 9.30 g/dL (11.27-16.99); Mean Corpuscular HGB Conc 28.9 g/dL (30-55); Mean Corpuscular Hemoglobin 27.2 pg (27-33); Mean Corpuscular Volume 94.2 fl (82-101); Nucleated Red Blood Cells % 0 %; Platelet Count 351 10^3/cmm (157-399); Red Blood Count 3.42 10^6/uL (3.85-5.65); White Blood Count 3.19 10^3/uL (3.29-11.43)
[2024-12-16 13:44] LABS: Alanine Aminotransferase 11 U/L (0-41); Albumin Level 3.5 g/dL (3.5-5.2); Alkaline Phosphatase 81 U/L (40-130); Anion Gap 15.2 (5-19); Aspartate Amino Transferase 15 U/L (0-40); Blood Urea Nitrogen 17 mg/dL (8-23); Calcium 8.5 mg/dL (8.5-10.5); Carbon Dioxide 23 mmol/L (22-29); Chloride 105 mmol/L (98-107); Ferritin 173 ng/mL (30-400); Globulin 3.0 g/dL (1.3-4.6); Glucose 116 mg/dL (65-115); Iron 38 ug/dL (59-158); Osmolality Calculated 291 mOsm/kg (285-295); Potassium 4.2 mmol/L (3.5-5.1); Sodium 139 mmol/L (136-145); Total Iron Binding Capacity 226 mcg/dl; Total Protein 6.5 g/dL (6.6-8.7); Unsaturated Iron Binding 188 ug/dL (112-347)
== END 2025-01-13 23:59 | disposition home or self-care (01) ==
PROVIDERS: PCP Physician Assistant; Visit Provider Internal Medicine
DX: D50.0 Iron deficiency anemia secondary to blood loss (chronic) (principal); D70.9 Neutropenia, unspecified; I78.0 Hereditary hemorrhagic telangiectasia; K81.0 Acute cholecystitis; Z79.899 Other long term (current) drug therapy; Z86.711 Personal history of pulmonary embolism; Z86.718 Personal history of other venous thrombosis and embolism; Z87.898 Personal history of other specified conditions
CPT/HCPCS: 36415; 80053; 82728; 82746; 83540; 83550; 85025; 99213

== ENCOUNTER → 2024-12-21 10:15 | Outpatient (BNVA) | payer MEDICARE, SELFPAY | PROVIDERS: PCP Physician Assistant; Visit Provider Surgery | DX: Z90.49 Acquired absence of other specified parts of digestive tract (principal); Z98.890 Other specified postprocedural states | CPT/HCPCS: 99024 ==

== ENCOUNTER → 2024-12-29 12:41 | Outpatient (BNVA) | payer MEDICARE, SELFPAY | PROVIDERS: PCP Physician Assistant; Visit Provider Internal Medicine Rheumatology | DX: M06.00 Rheumatoid arthritis without rheumatoid factor, unspecified site (principal); Z71.85 Encounter for immunization safety counseling; Z79.899 Other long term (current) drug therapy | CPT/HCPCS: 99214 ==

== ENCOUNTER → 2025-02-02 12:51 | Outpatient (BNVA) | payer MEDICARE, SELFPAY | PROVIDERS: PCP Physician Assistant; Visit Provider Internal Medicine | DX: R07.9 Chest pain, unspecified (principal); G47.33 Obstructive sleep apnea (adult) (pediatric); I78.0 Hereditary hemorrhagic telangiectasia; Z86.711 Personal history of pulmonary embolism; Z86.718 Personal history of other venous thrombosis and embolism | CPT/HCPCS: 99214 ==

== ENCOUNTER 2025-02-17 08:51 | Oncology outpatient (recurring) (ONCR) | payer MEDICARE, SELFPAY ==
[2025-02-17] MEDS: ondansetron 2 mg/ML SDV 2 mL 8 MG IVP (10:56)
[2025-02-17] MEDS: diphenhydrAMINE 50 mg/mL SDV 1mL 25 MG IVP (11:07)
[2025-02-17 12:43] LABS: Glucose Urine UA Negative (Normal); Nitrate Urine Negative (Negative); Specific Gravity, Urine 1.010 (1.005-1.030)
[2025-02-17 12:51] LABS: Add Urine Microscopic? YES
[2025-02-17] MEDS: iron dextran 975 MG in sodium chloride 0.9% 1,000 ML 250.75 MG IV (12:53)
[2025-02-17 13:14] LABS: UA Slide Review UA Slide Review Perf
[2025-02-17 17:31] VITALS: BP 161/77; O2SAT 94
== END 2025-02-17 23:59 | disposition home or self-care (01) ==
PROVIDERS: Nurse Practitioner; PCP Physician Assistant; Visit Provider Internal Medicine
DX: D50.0 Iron deficiency anemia secondary to blood loss (chronic) (principal); C61 Malignant neoplasm of prostate; D70.9 Neutropenia, unspecified; R30.0 Dysuria; M89.9 Disorder of bone, unspecified; Z79.899 Other long term (current) drug therapy
CPT/HCPCS: 81001; 87077; 87086; 87186; 96365; 96366; 96375; 99215; J1200; J1750; J2405; J3490; J7030; J7040; J9999

== ENCOUNTER 2025-03-24 07:59 | Oncology outpatient (recurring) (ONCR) | payer MEDICARE, SELFPAY ==
[2025-03-24 08:43] LABS: Hematocrit 38.6 % (37-53); Hemoglobin 12.10 g/dL (11.27-16.99); Mean Corpuscular HGB Conc 31.3 g/dL (30-55); Mean Corpuscular Hemoglobin 29.6 pg (27-33); Mean Corpuscular Volume 94.4 fl (82-101); Nucleated Red Blood Cells % 0 %; Platelet Count 184 10^3/cmm (157-399); Red Blood Count 4.09 10^6/uL (3.85-5.65); White Blood Count 3.08 10^3/uL (3.29-11.43)
[2025-03-24 09:17] LABS: Alanine Aminotransferase 85 U/L (0-41); Albumin Level 3.7 g/dL (3.5-5.2); Alkaline Phosphatase 165 U/L (40-130); Anion Gap 16.0 (5-19); Aspartate Amino Transferase 42 U/L (0-40); Blood Urea Nitrogen 14 mg/dL (8-23); Calcium 8.6 mg/dL (8.5-10.5); Carbon Dioxide 20 mmol/L (22-29); Chloride 107 mmol/L (98-107); Creatinine Clr Calc Pharmacy 130.7469; Globulin 3.3 g/dL (1.3-4.6); Glucose 159 mg/dL (65-115); Osmolality Calculated 292 mOsm/kg (285-295); Potassium 4.0 mmol/L (3.5-5.1); Prostate Specific Antigen 23.180 ng/mL (0-4); Sodium 139 mmol/L (136-145); Total Protein 7.0 g/dL (6.6-8.7)
[2025-03-24] MEDS: diphenhydrAMINE 50 mg/mL SDV 1mL 25 MG IVP (09:32)
[2025-03-24 09:38] VITALS: BP 128/78; PULSE 66; RESP 17; TEMP 36.7; O2SAT 96
[2025-03-24] MEDS: IRON DEXTRAN IV (09:54)
[2025-03-24] MEDS: SODIUM CHLORIDE 0.9% IV (09:54)
== END 2025-04-15 23:59 | disposition home or self-care (01) ==
PROVIDERS: Nurse Practitioner; PCP Physician Assistant; Visit Provider Internal Medicine
DX: C61 Malignant neoplasm of prostate (principal); D50.0 Iron deficiency anemia secondary to blood loss (chronic); Z79.899 Other long term (current) drug therapy; D70.9 Neutropenia, unspecified
CPT/HCPCS: 80053; 84153; 85025; 96365; 96366; 96375; 99213; J1200; J1750; J7030; J7040; J9999

== ENCOUNTER 2025-06-06 09:26 | Oncology outpatient (recurring) (ONCR) | payer MEDICARE, SELFPAY ==
[2025-06-02 09:38] LABS: Hematocrit 39.6 % (37-53); Hemoglobin 13.00 g/dL (11.27-16.99); Mean Corpuscular HGB Conc 32.8 g/dL (30-55); Mean Corpuscular Hemoglobin 29.9 pg (27-33); Mean Corpuscular Volume 91.0 fl (82-101); Nucleated Red Blood Cells % 0 %; Platelet Count 194 10^3/cmm (157-399); Red Blood Count 4.35 10^6/uL (3.85-5.65); White Blood Count 3.76 10^3/uL (3.29-11.43)
[2025-06-02 10:31] LABS: Alanine Aminotransferase 13 U/L (0-41); Albumin Level 4.0 g/dL (3.5-5.2); Alkaline Phosphatase 71 U/L (40-130); Anion Gap 15.3 (5-19); Aspartate Amino Transferase 17 U/L (0-40); Blood Urea Nitrogen 16 mg/dL (8-23); Calcium 9.1 mg/dL (8.5-10.5); Carbon Dioxide 25 mmol/L (22-29); Chloride 103 mmol/L (98-107); Ferritin 66 ng/mL (30-400); Globulin 2.7 g/dL (1.3-4.6); Glucose 158 mg/dL (65-115); Iron 68 ug/dL (59-158); Osmolality Calculated 292 mOsm/kg (285-295); Potassium 4.3 mmol/L (3.5-5.1); Prostate Specific Antigen 0.079 ng/mL (0-4); Sodium 139 mmol/L (136-145); Total Iron Binding Capacity 251 mcg/dl; Total Protein 6.7 g/dL (6.6-8.7); Unsaturated Iron Binding 183 ug/dL (112-347); Vitamin B12 1254 pg/mL (232-1245)
--- NOTE | 2025-06-06 12:15 | N.ONRAD NP_ITS ---
Radiation Oncology New Patient Visit Patient: Vicente Galarza MR#: [id number] : 1960 Age: 64 Sex: Male Dictated by: José Miguel Sanford DO/EMERALD/DOREEN Date of Service: 06/06/2025 Referring Physician(s) : Dr. Crook Diagnosis: ADENOCARCINOMA BL PROSTATE, PRE-TX PSA 23.18 (03/24/2025), GS 4+3, 10-55% GS4/ 3-7 4% VOL, RT APEX 4+3/55% GS 4 /2/2 CORES+/ 35% VOL, RT MID GS 3+4 / 25% GS 4 / 2/2 CORES/ 74% VOL, RT BASE GS 4+3/ 60% GS 4 /3/3 CORES/ 61% VOL, LT APEX GS 3+3/ ??? CORES/ 18% VOL, LT MID GS 3+3/ ??? CORES/ 3% VOL, LT BASE GS 3+4/ 10% GS 4/ 2/2 CORES/ 44% VOL, LARP 05/04/2025-ADVERSE FEATURES +RT BLADDER NECK > 3 MM/ + RT EPE POST PROSTATE/ FOCAL + CLSI/ NO LN IDENT/HIGH VOL DS, POST-OP PSA 0.079 (06/02/2025), +SEVERE COLONIC ADHESIONS, AUA , CT A/P (01/26/25) ??? METS, MRI LUMBAR (01/26/25) ??? BONE METS, PSMAPET (02/03/25) LT ILIAC ? LESION/ RT PROSTATE ACTVE LESION STAGE: [id number] ICD-10: C61 Radiotherapy to date: Summary > No prior radiation therapy. Chief Complaint- discuss the need for adjuvant XRT History of Present Illness: This is a pleasant 64-year-old male with asymptomatic high-volume GS 4+3 DISEASE S/P LARP 05/04/2025 with adverse features. Patient has asymptomatic prostate cancer, and he underwent biopsy on 01/14/2025. It returned RT APEX 4+3/55% GS 4 /2/2 CORES+/ 35% VOL, RT MID GS 3+4 / 25% GS 4 / 2/2 CORES/ 74% VOL, RT BASE GS 4+3/ 60% GS 4 /3/3 CORES/ 61% VOL, LT APEX GS 3+3/ ??? CORES/ 18% VOL, LT MID GS 3+3/ ??? CORES/ 3% VOL, LT BASE GS 3+4/ 10% GS 4/ 2/2 CORES/ 44% VOL. CT A/P on 01/26/2025 noted severe thickening of the bowel wall consistent with acute cystitis. Bah catheter in place. Moderate moderate osteoarthritis medially with bibasilar atelectasis suggestive of central congestion. Stable size of a LLL 1.3 cm noncalcified pulmonary nodule. Moderate constipation. Hepatomegaly. No suspicious bony lesions. Posterior fusion of L4-5. Bilateral inguinal hernia containing fat only. MRI lumbar spine with and without contrast on 01/26/2025 showed no enhancing osseous lesions there was a previous L4-5 posterior fusion with no evidence of hardware failure. PSMA PET on 02/03/2025 showed significant uptake in the right aspect of the prostate gland consistent with primary site of disease. There was tiny indeterminate bony lesions in the low left iliac wing and left 12th rib concerning for early osseous metastatic disease no additional metastatic disease was identified and no suspicious lymphadenopathy in the abdomen or pelvis. LARP on 05/04/2025 noted ADVERSE FEATURES +RT BLADDER NECK >3MM / + RT EPE POST PROSTATE/ FOCAL + CLSI/ NO LN IDENT/HIGH VOL DS. He was noted to have severe colonic adhesions also during surgery resulting in extensive resection without apparent damage to the colon. POST ??? OP PSA on 06/02/2025 NOTED IT TO BE 0.079 PSA TABLE: 12/2024 22 03/24/25 23.18 06/02/25 0.079 (1ST POST-OP) DISCUSSION of NCCN guidelines regarding postoperative XRT. Current Medications: albuterol sulfate 90 mcg/actuation (Ventolin HFA) 2 puffs inhalation Q6H PRN ascorbic acid (vitamin C) 1 g PO DAILY cholecalciferol (vitamin D3) (Vitamin D3) 50 mcg PO DAILY cyanocobalamin (vitamin B-12) (Vitamin B-12) 1,000 mcg PO DAILY ferrous sulfate (iron) 650 mg PO DAILY fluticasone propion-salmeterol 250-50 mcg/dose (Advair Diskus) 1 inh inhalation BID magnesium 250 mg PO DAILY midodrine 10 mg PO BID PRN multivitamin 1 tab PO DAILY pantoprazole (Protonix) 40 mg PO DAILY pregabalin (Lyrica) 100 mg PO BID Allergies: grass pollen-[place], standard Allergy ALGY-Difficulty Breathing gabapentin Allergy ADR-Itching meperidine (From Demerol) Allergy ADR-Nausea Medical History: No history of collagen vascular disease. No previous radiation therapy. Pulmonary embolism Hereditary hemorrhagic telangiectasia History of pulmonary embolism Iron deficiency anemia secondary to blood loss (chronic) Deep vein thrombosis (DVT) of right lower extremity DDD (degenerative disc disease), lumbar Peripheral neuropathy Traumatic blindness of left eye Seronegative rheumatoid arthritis Immunization counseling SEVERE COLONC ADHESIONS [facility] at [facility] Osteoarthritis Surgical History: History of cholecystectomy 12/06/24 Dr June History of nasal cauterization S/P lumbar fusion L4/5 laminectomy with fusion H/O: knee surgery Right knee x 2, left knee x 1 S/P left rotator cuff repair S/P right rotator cuff repair S/P appy H/O eye surgery Left eye prosthesis Cornea replaced by transplant Family History: Other Cancer, 2 brothers with prostate cancer 1 sister dying as a child with leukemia and father dying of lung cancer Denies family history of Rheumatoid arthritis Diabetes Lupus CAD (coronary artery disease) Hypertension Social History: Smoking and tobacco/nicotine status: never used tobacco/nicotine Alcohol intake: never Dietary Habits Caffeine: Yes Current Complaints / Review of Systems: As noted above Vital Signs: Performed on 06/06/2025 9:10 AM BMI - 34.423 kg/m2 (high), Height - 75 in, Weight - 275.4 lbs, Temperature - 97.7 f, Pulse - 69 /min, Respiration - 17 /min, O2 Sat - 96 %, Pain - 3, Fatigue - 0 and BP - 121/ 82 mm(hg). Physical Exam: General: Alert and oriented x 3. No acute distress. HEENT: Normocephalic, atraumatic. Extraocular Movements Intact: Pupils Equal, Round, Reactive to Light and Accommodation: Sclerae anicteric. Oral cavity is clear without lesions, masses or ulcers. NECK: Supple without supraclavicular or jugular lymphadenopathy. LUNGS: Clear to auscultation bilaterally without rales, rhonchi or wheeze. BREAST: PENDENLOUS WITHOUT APPARENT MASSES. BRA SIZE HEART: Regular rate and rhythm, normal S1 and S2 without murmur, gallop or rub. MUSCULOSKELETAL: No tenderness or percussion pain over the axial skeleton, scapulae or pelvis. ABDOMEN: Soft, nontender, nondistended without masses or organomegaly. Bowell sounds are present. EXTREMITIES: No peripheral edema is identified. Limited motor and sensory examination are grossly intact and symmetric bilaterally. NEUROLOGIC: Cranial nerves II ???XII are grossly intact. Normal sensation, strength 5/5 in all extremities, normal gait, no ataxia. Performance Status: KPS 90 Pathology: ABOVE Lab: ABOVE Imaging: See HPI Impression: ADENOCARCINOMA BL PROSTATE, PRE-TX PSA 23.18 (03/24/2025), GS 4+3, 10-55% GS4/ 3-7 4% VOL, RT APEX 4+3/55% GS 4 /2/2 CORES+/ 35% VOL, RT MID GS 3+4 / 25% GS 4 / 2/2 CORES/ 74% VOL, RT BASE GS 4+3/ 60% GS 4 /3/3 CORES/ 61% VOL, LT APEX GS 3+3/ ??? CORES/ 18% VOL, LT MID GS 3+3/ ??? CORES/ 3% VOL, LT BASE GS 3+4/ 10% GS 4/ 2/2 CORES/ 44% VOL, LARP 05/04/2025-ADVERSE FEATURES +RT BLADDER NECK > 3 MM/ + RT EPE POST PROSTATE/ FOCAL + CLSI/ NO LN IDENT(- PSMA PET 02/03/2025)/HIGH VOL DS, POST-OP PSA 0.079 (06/02/2025), +SEVERE COLONIC ADHESIONS, AUA , CT A/P (01/26/25) ??? METS, MRI LUMBAR (01/26/25) ??? BONE METS, PSMAPET (02/03/25) LT ILIAC ? LESION/ RT PROSTATE ACTVE LESION STAGE: [id number] ICD-10: C61 Plan: Options were discussed in detail with the patient and . NCCN guidelines discussed and questions answered. No clear consensus was offered and the principles of radiation therapy but with a patient with multiple adverse features and/or lymph node involvement there was underrepresentation and multiple trials. It MAY be reasonable for patients with multiple adverse features to have adjuvant RT versus salvage RT. Patient wishes to proceed with XRT when feasible. Due to the extensive adhesion resection surgery we would wait a total 2 months postsurgery to offer adjuvant XRT. We would not recommend hypofractionation scheme due to the multiple adhesions that were found at time of surgery. We would recommend XRT 6600 cGy in 33 fractions to the prostatic fossa and SIB to the lymph nodes. Planning CT SIM will occur on 07/04/2025. Signed by: 06/06/2025 12:13:24 PM <<Signature on File>> Time spent with patient//review of records/production of document: 95 MINUTES CPT Code: CPT Code:
== END 2025-06-15 23:59 | disposition home or self-care (01) ==
PROVIDERS: PCP Physician Assistant; Visit Provider Internal Medicine
DX: C61 Malignant neoplasm of prostate (principal)
CPT/HCPCS: 36415; 80053; 82607; 82728; 82746; 83010; 83540; 83550; 83615; 84153; 84403; 85025; 85045; 99205; 99213